=== PATIENT | female | born 1970 | race Caucasian/White ===

== ENCOUNTER → 2016-11-14 | Outpatient (CLI) | payer OTHER ==
--- NOTE | 2016-11-15 10:05 | MM ---
Reason for exam: screening (asymptomatic). Baseline mammogram. History: Patient is postmenopausal. Physical Findings: Nurse did not find any significant physical abnormalities on exam. MG Screening Mammo w CAD Bilateral CC and MLO view(s) were taken. There are scattered fibroglandular densities. There is no discrete abnormality. ASSESSMENT: Negative, BI-RAD 1 RECOMMENDATION: Routine screening mammogram of both breasts in 1 year.
== END | disposition home or self-care (01) ==
LOC: RADMAMWWP 10:29
PROVIDERS: ATTEND Family Medicine
DX: Z12.31 Encounter for screening mammogram for malignant neoplasm of breast (principal)

== ENCOUNTER 2016-11-24 01:40 | Emergency (ER) | payer OTHER ==
[2016-11-24 01:58] VITALS: BP 122/72; PULSE 83; RESP 18; TEMP 97.9
[2016-11-24] MEDS ORDERED: CYCLOBENZAPRINE 10MG STARTER 3 TAB BTL PO STA (02:08)
[2016-11-24] MEDS ORDERED: KETOROLAC 60 MG/2 ML VIAL IM STA (02:08)
[2016-11-24] MEDS ORDERED: ACET/COD 300 MG/30 MG STARTER PACK 6 TAB BTL PO STA (02:08)
--- NOTE | 2016-11-24 02:11 | ED ---
Back Pain HPI - General Chief Complaint: Back Pain/Injury Stated Complaint: back pain Time Seen by Provider: 11/24/16 02:01 Source: patient, RN notes reviewed Mode of arrival: ambulatory Limitations: no limitations - History of Present Illness Initial Comments: 46-year-old female presents emergency Department chief complaint back pain. Patient states she's been having ongoing back pain which she seen her primary care physician for this. Patient states that she is scheduled for an MRI in approximately 2 weeks. Patient states that she's been having increased back pain or last few months. Patient denies any trauma. X-ray showed degenerative changes L4-L5 L5-S1. Patient denies any bowel, bladder and carts retention. Denies any saddle anesthesias. Denies any lower extremity paresthesias. She states that after strength Tylenol is not helping. Patient states she's tried other [id number] medications with no relief. - Related Data Previous Rx's Medication Instructions Recorded Acetaminophen-Codeine 300-30mg 1 tab PO Q4H PRN #20 tablet 11/24/16 [Tylenol #3] Cyclobenzaprine [Flexeril] 10 mg PO TID PRN #15 tab 11/24/16 Allergies Allergy/AdvReac Type Severity Reaction Status Date / Time No Known Allergies Allergy Verified 09/03/16 11:53 Review of Systems ROS Statement: Those systems with pertinent positive or pertinent negative responses have been documented in the HPI. ROS Other: All systems not noted in ROS Statement are negative. Past Medical History Past Medical History: No Reported History Additional Past Medical History / Comment(s): stomach ulcers History of Any Multi-Drug Resistant Organisms: None Reported Past Surgical History: Appendectomy, Hysterectomy, Orthopedic Surgery, Tubal Ligation Additional Past Surgical History / Comment(s): right knee, left knee, left shoulder Past Psychological History: Anxiety, Depression Smoking Status: Current every day smoker Past Alcohol Use History: Occasional Past Drug Use History: None Reported General Exam Limitations: no limitations General appearance: alert, in no apparent distress Neck exam: Present: normal inspection, full ROM. Absent: tenderness, meningismus, lymphadenopathy Respiratory exam: Present: normal lung sounds bilaterally. Absent: respiratory distress, wheezes, rales, rhonchi, stridor Cardiovascular Exam: Present: regular rate, normal rhythm, normal heart sounds. Absent: systolic murmur, diastolic murmur, rubs, gallop, clicks GI/Abdominal exam: Present: soft, normal bowel sounds. Absent: distended, tenderness, guarding, rebound, rigid Extremities exam: Present: other (Bilateral lower extremity strength equal bilateral pedal pulses 2+ equal bilaterally equal color equal warmth) Back exam: Present: full ROM, tenderness (Mild tenderness lumbar spine), paraspinal tenderness, vertebral tenderness (Lumbar), other (Normal straight leg raise) Neurological exam: Present: alert, oriented X3, CN II-XII intact, reflexes normal. Absent: motor sensory deficit Skin exam: Present: warm, dry, intact, normal color. Absent: rash Course Vital Signs 11/24/16 01:54 Temperature 97.9 F Pulse Rate 83 Respiratory 18 Rate Blood Pressure 122/72 O2 Sat by Pulse 99 Oximetry Medical Decision Making - Medical Decision Making 38-year-old female presented for back pain. Patient x-rays were reviewed. Patient has genital changes. Patient be given pain medication and discharge. Patient has no red flag symptoms. Patient has scheduled MRI and appointment with pain clinic. Disposition Clinical Impression: Lumbar back pain Disposition: HOME SELF-CARE Condition: Stable Instructions: Acute Low Back Pain (ED) Additional Instructions: Please return to the Emergency Department if symptoms worsen or any other concerns. Prescriptions: Acetaminophen-Codeine 300-30mg [Tylenol #3] 1 tab PO Q4H PRN #20 tablet PRN Reason: pain Cyclobenzaprine [Flexeril] 10 mg PO TID PRN #15 tab PRN Reason: Muscle Spasm Time of Disposition: 02:11
== END 2016-11-24 02:26 | disposition home or self-care (01) ==
LOC: EC 01:40
DX: M54.5 Low back pain (principal); F41.9 Anxiety disorder, unspecified; F32.9 Major depressive disorder, single episode, unspecified; F17.200 Nicotine dependence, unspecified, uncomplicated; Z79.899 Other long term (current) drug therapy; Z79.1 Long term (current) use of non-steroidal anti-inflammatories (NSAID)
CPT/HCPCS: 99282 ×2; 96372 ×2; J1885

== ENCOUNTER 2016-12-03 19:26 | Emergency (ER) | payer OTHER ==
[2016-12-03 20:09] VITALS: RESP 18
[2016-12-03] MEDS ORDERED: IBUPROFEN 400 MG TAB PO STA (21:42)
[2016-12-03] MEDS ORDERED: SODIUM CHLORIDE 0.9% 1,000 ML IV STA (21:42)
--- NOTE | 2016-12-03 22:01 | XR ---
EXAMINATION TYPE: XR chest 2V DATE OF EXAM: 12/03/2016 9:56 PM COMPARISON: NONE HISTORY: Headache TECHNIQUE: Frontal and lateral views of the chest are obtained. FINDINGS: Heart and mediastinum are normal. Lungs are clear. Diaphragm is normal. Bony thorax is int act. IMPRESSION: Normal chest. No change.
--- NOTE | 2016-12-03 22:06 | ED ---
General Adult HPI - General Chief complaint: Headache Stated complaint: Headache Time Seen by Provider: 12/03/16 21:21 Source: patient, RN notes reviewed Mode of arrival: ambulatory Limitations: no limitations - History of Present Illness Initial comments: 46-year-old female presents emergency Department with a chief complaint of just feeling drinking. Patient states today she just felt very drained. Patient states she hasn't had any fever or chills but she does take Tylenol for pain. Patient states that she just has to motivate herself to move. Patient states that she just feels achy as well. Patient states she has lost headache and back pain and arm pain and leg pain. Patient states he does have chronic back pain but did have an MRI today. Patient states that she just does not know what he thought that she should be evaluated. Patient states that she is not currently having any other symptoms at this time. Patient denies any recent fever, chills, shortness of breath, chest pain, back pain, abdominal pain, nausea vomiting, numbness or tingling, dysuria or hematuria, constipation or diarrhea, visual changes, or any other current symptoms. - Related Data Home Medications Medication Instructions Recorded Confirmed Acetaminophen Tab [Tylenol Tab] 1,000 mg PO Q6HR 12/03/16 12/03/16 Previous Rx's Medication Instructions Recorded Ciprofloxacin HCl [Cipro] 500 mg PO Q12HR #14 tablet 12/03/16 Allergies Allergy/AdvReac Type Severity Reaction Status Date / Time No Known Allergies Allergy Verified 12/03/16 20:54 Review of Systems ROS Statement: Those systems with pertinent positive or pertinent negative responses have been documented in the HPI. ROS Other: All systems not noted in ROS Statement are negative. Past Medical History Past Medical History: No Reported History Additional Past Medical History / Comment(s): stomach ulcers History of Any Multi-Drug Resistant Organisms: None Reported Past Surgical History: Appendectomy, Hysterectomy, Orthopedic Surgery, Tubal Ligation Additional Past Surgical History / Comment(s): right knee, left knee, left shoulder Past Psychological History: Anxiety, Depression Smoking Status: Current every day smoker Past Alcohol Use History: Occasional Past Drug Use History: None Reported General Exam - General Exam Comments Initial Comments: General: The patient is awake and alert, in no distress, and does not appear acutely ill. Eye: Pupils are equal, round and reactive to light, extra-ocular movements are intact; there is normal conjunctiva bilaterally. No signs of icterus. Ears, nose, mouth and throat: There are moist mucous membranes and no oral lesions. Neck: The neck is supple, there is no tenderness. Cardiovascular: There is a regular rate and rhythm. No murmur, rub or gallop is appreciated. Respiratory: Lungs are clear to auscultation, respirations are non-labored, breath sounds are equal. No wheezes, stridor, rales, or rhonchi. Gastrointestinal: Soft, non-distended, non-tender abdomen without masses or organomegaly noted. There is no rebound or guarding present. No CVA tenderness. Bowel sounds are unremarkable. Back: There is no tenderness to palpation in the midline. There is no obvious deformity. No rashes noted. Musculoskeletal: Normal ROM, no tenderness, There is no pedal edema. There is no calf tenderness or swelling. Sensation intact. Pulses equal bilaterally 2+. Neurological: CN II-XII intact, There are no obvious motor or sensory deficits. Coordination appears grossly intact. Speech is normal. Skin: Skin is warm and dry and no rashes or lesions are noted. Psychiatric: Cooperative, appropriate mood & affect, normal judgment. Limitations: no limitations Course Vital Signs 12/03/16 20:06 Temperature 98.2 F Pulse Rate 89 Respiratory 18 Rate Blood Pressure 139/84 O2 Sat by Pulse 98 Oximetry Medical Decision Making - Medical Decision Making 46-year-old female presents to the emergency department with a chief complaint of fatigue. This and the patient's laboratories reviewed the discharge that she has UTI and is negative for blood. We discussed this could be why she is feeling so fatigued. We will start her on antibiotics. We discussed return parameters and follow-up. We discussed outcome. Patient stated that she understood all her questions have been answered. She will be discharged. - Lab Data Result diagrams: 12/03/16 22:15 12/03/16 22:15 Lab Results 12/03/16 12/03/16 12/03/16 Range/Units 22:15 22:15 22:15 WBC 10.3 (3.8-10.6) k/uL RBC 4.60 (3.80-5.40) m/uL Hgb 14.0 (11.4-16.0) gm/dL Hct 42.2 (34.0-46.0) % MCV 91.9 (80.0-100.0) fL MCH 30.4 (25.0-35.0) pg MCHC 33.1 (31.0-37.0) g/dL RDW 12.1 (11.5-15.5) % Plt Count 462 H (150-450) k/uL Neutrophils % 50 % Lymphocytes % 39 % Monocytes % 5 % Eosinophils % 3 % Basophils % 2 % Neutrophils # 5.2 (1.3-7.7) k/uL Lymphocytes # 4.0 (1.0-4.8) k/uL Monocytes # 0.5 (0-1.0) k/uL Eosinophils # 0.3 (0-0.7) k/uL Basophils # 0.2 (0-0.2) k/uL Sodium 142 (137-145) mmol/L Potassium 4.3 (3.5-5.1) mmol/L Chloride 100 (98-107) mmol/L Carbon Dioxide 31 H (22-30) mmol/L Anion Gap 11 mmol/L BUN 11 (7-17) mg/dL Creatinine 0.67 (0.52-1.04) mg/dL Est GFR (MDRD) Af Amer >60 (>60 ml/min/1.73 sqM) Est GFR (MDRD) Non-Af >60 (>60 ml/min/1.73 sqM) Glucose 87 (74-99) mg/dL Calcium 9.9 (8.4-10.2) mg/dL Total Bilirubin 0.5 (0.2-1.3) mg/dL AST 25 (14-36) U/L ALT 44 (9-52) U/L Alkaline Phosphatase 79 (38-126) U/L Total Protein 7.7 (6.3-8.2) g/dL Albumin 4.5 (3.5-5.0) g/dL Urine Color Urine Appearance (Clear) Urine pH (5.0-8.0) Ur Specific [place] (1.001-1.035) Urine Protein (Negative) Urine Glucose (UA) (Negative) Urine Ketones (Negative) Urine Blood (Negative) Urine Nitrate (Negative) Urine Bilirubin (Negative) Urine Urobilinogen (<2.0) mg/dL Ur Leukocyte Esterase (Negative) Urine RBC (0-5) /hpf Urine WBC (0-5) /hpf Ur Squamous Epith Cells (0-4) /hpf Urine Mucus (None) /hpf Influenza Type A RNA Not Detected (Not Detectd) Influenza Type B (PCR) Not Detected (Not Detectd) 12/03/16 Range/Units 22:15 WBC (3.8-10.6) k/uL RBC (3.80-5.40) m/uL Hgb (11.4-16.0) gm/dL Hct (34.0-46.0) % MCV (80.0-100.0) fL MCH (25.0-35.0) pg MCHC (31.0-37.0) g/dL RDW (11.5-15.5) % Plt Count (150-450) k/uL Neutrophils % % Lymphocytes % % Monocytes % % Eosinophils % % Basophils % % Neutrophils # (1.3-7.7) k/uL Lymphocytes # (1.0-4.8) k/uL Monocytes # (0-1.0) k/uL Eosinophils # (0-0.7) k/uL Basophils # (0-0.2) k/uL Sodium (137-145) mmol/L Potassium (3.5-5.1) mmol/L Chloride (98-107) mmol/L Carbon Dioxide (22-30) mmol/L Anion Gap mmol/L BUN (7-17) mg/dL Creatinine (0.52-1.04) mg/dL Est GFR (MDRD) Af Amer (>60 ml/min/1.73 sqM) Est GFR (MDRD) Non-Af (>60 ml/min/1.73 sqM) Glucose (74-99) mg/dL Calcium (8.4-10.2) mg/dL Total Bilirubin (0.2-1.3) mg/dL AST (14-36) U/L ALT (9-52) U/L Alkaline Phosphatase (38-126) U/L Total Protein (6.3-8.2) g/dL Albumin (3.5-5.0) g/dL Urine Color Yellow Urine Appearance Clear (Clear) Urine pH 6.0 (5.0-8.0) Ur Specific [place] 1.026 (1.001-1.035) Urine Protein Trace H (Negative) Urine Glucose (UA) Negative (Negative) Urine Ketones Negative (Negative) Urine Blood Trace H (Negative) Urine Nitrate Negative (Negative) Urine Bilirubin Negative (Negative) Urine Urobilinogen <2.0 (<2.0) mg/dL Ur Leukocyte Esterase Moderate H (Negative) Urine RBC 8 H (0-5) /hpf Urine WBC 6 H (0-5) /hpf Ur Squamous Epith Cells 4 (0-4) /hpf Urine Mucus Rare H (None) /hpf Influenza Type A RNA (Not Detectd) Influenza Type B (PCR) (Not Detectd) - Radiology Data Radiology results: report reviewed, image reviewed Disposition Clinical Impression: Fatigue, UTI (urinary tract infection) Disposition: HOME SELF-CARE Condition: Stable Instructions: Urinary Tract Infection in Women (ED) Additional Instructions: Please use medication as discussed. Please follow up with family doctor if symptoms have not improved over the next two days. Please return to the emergency room if your symptoms increase or worsen or for any other concerns. Prescriptions: Ciprofloxacin HCl [Cipro] 500 mg PO Q12HR #14 tablet Referrals: Chalo Ayala MD [Primary Care Provider] - 1-2 days Time of Disposition: 23:38
[2016-12-03 22:29] LABS: Basophils # (A) 0.2 k/uL (0-0.2); Basophils % (A) 2 %; CH 31.5; CHCM 34.4; Eosinophils # (A) 0.3 k/uL (0-0.7); Eosinophils % (A) 3 %; HCT 42.2 % (34.0-46.0); HDW 2.48; Luc # (Auto) 0.12; Luc % (Auto) 1; Lymphocytes % (A) 39 %; MCH 30.4 pg (25.0-35.0); MCHC 33.1 g/dL (31.0-37.0); MCV 91.9 fL (80.0-100.0); Mean Platelet Volume 6.8; Monocytes # (A) 0.5 k/uL (0-1.0); Monocytes % (A) 5 %; Neutrophils # (A) 5.2 k/uL (1.3-7.7); Neutrophils % (A) 50 %; RDW 12.1 % (11.5-15.5); WBC 10.3 k/uL (3.8-10.6); WBC (Perox) 10.25
[2016-12-03 22:34] LABS: Appearance,Urine Clear (Clear); Bilirubin,Urine Negative (Negative); Glucose,Urine (UA) Negative (Negative); Ketones,Urine Negative (Negative); Leukocyte Esterase,Urine Moderate (Negative); Mucus,Urine Rare /hpf; Nitrite,Urine Negative (Negative); Particle Count 3231; Protein,Urine Trace (Negative); RBC,Urine 8 /hpf (0-5); Specific Gravity,Urine 1.026 (1.001-1.035); Squamous Epithelial Cell,Urine 4 /hpf (0-4); UA Billing (MACRO vs. MICRO) MICRO; Urobilinogen,Urine <2.0 mg/dL (<2.0); WBC,Urine 6 /hpf (0-5)
[2016-12-03 22:46] LABS: ALT 44 U/L (9-52); AST 25 U/L (14-36); Alkaline Phosphatase 79 U/L (38-126); Anion Gap 11 mmol/L; Blood Urea Nitrogen 11 mg/dL (7-17); Calcium 9.9 mg/dL (8.4-10.2); Carbon Dioxide 31 mmol/L (22-30); Chloride 100 mmol/L (98-107); Glucose 87 mg/dL (74-99); Non-African American GFR(MDRD) >60 (>60 ml/min/1.73 sqM); Potassium 4.3 mmol/L (3.5-5.1); Sodium 142 mmol/L (137-145); Total Bilirubin 0.5 mg/dL (0.2-1.3); Total Protein 7.7 g/dL (6.3-8.2)
[2016-12-03] MEDS ORDERED: ACETAMINOPHEN TAB 500 MG TAB PO STA (22:47)
[2016-12-03] MEDS ORDERED: KETOROLAC 30 MG/ML 1 ML VIAL IVP STA (23:39)
[2016-12-03 23:57] VITALS: BP 117/66; PULSE 77; TEMP 97.6
== END 2016-12-03 23:57 | disposition home or self-care (01) ==
LOC: EC 19:26
DX: R53.83 Other fatigue (principal); N39.0 Urinary tract infection, site not specified; Z79.899 Other long term (current) drug therapy; F17.200 Nicotine dependence, unspecified, uncomplicated
CPT/HCPCS: 36415; 80053; 85025; 81001; 87040; 87086; 87502; 71020; 99283; 96374; 96361; J1885; 72148

== ENCOUNTER → 2016-12-03 | Outpatient (CLI) | payer OTHER ==
--- NOTE | 2016-12-03 13:06 | MR ---
EXAMINATION TYPE: MR lumbar spine wo con DATE OF EXAM: 12/03/2016 12:57 PM COMPARISON: NONE HISTORY: Low back pain CONTRAST: 0 mL intravenous . TECHNIQUE: Multiplanar, multisequence images of the lumbar spine were acquired. FINDINGS: L5-S1: No significant disc bulge or disc herniation. No spinal canal stenosis. No foraminal stenosi s. Facet hypertrophy is present.. L4-L5: No significant disc bulge or disc herniation. No spinal canal stenosis. No foraminal stenosi s. Disc desiccation is present. Some subtle increased signal centrally within the disc space can be an annular tear. There is mild flattening the anterior thecal sac.. L3-L4: No significant disc bulge or disc herniation. No spinal canal stenosis. No foraminal stenosi s. . L2-L3: No significant disc bulge or disc herniation. No spinal canal stenosis. No foraminal stenosi s. . L1-L2: No significant disc bulge or disc herniation. No spinal canal stenosis. No foraminal stenosi s. . T12-L1: No significant disc bulge or disc herniation. No spinal canal stenosis. No foraminal stenos is. . Cord terminates at the T12-L1 level. IMPRESSION: 1. L4-5 with possible annular tear.
== END | disposition home or self-care (01) ==
LOC: RADMRIMAIN 12:21
PROVIDERS: ATTEND Nurse Practitioner Family
DX: M54.5 Low back pain (principal)
CPT/HCPCS: 72148

== ENCOUNTER 2016-12-17 10:09 | Emergency (ER) | payer OTHER ==
[2016-12-17] MEDS ORDERED: DIAZEPAM 5 MG TAB PO STA (10:36)
[2016-12-17] MEDS ORDERED: KETOROLAC 60 MG/2 ML VIAL IM STA (10:36)
[2016-12-17] MEDS ORDERED: HYDROcodone/APAP 5-325MG 1 EACH TAB PO STA (10:36)
--- NOTE | 2016-12-17 11:05 | ED ---
General Adult HPI - General Chief complaint: Back Pain/Injury Stated complaint: back pain Time Seen by Provider: 12/17/16 10:25 Source: patient, RN notes reviewed, old records reviewed Mode of arrival: wheelchair Limitations: no limitations - History of Present Illness Initial comments: This is a 38-year-old female here for evaluation of acute on chronic back pain. Patient has history of back pain and discomfort. Patient has had prior evaluation with MRI, patient does have an appointment with an for pain management starting tomorrow. Patient has no neurological complaints. This feels a severe back pain that is radiating across her entire back. No loss of bowel or bladder, no new injury or trauma, no fever. - Related Data Home Medications Medication Instructions Recorded Confirmed traMADol HCL [Ultram] 50 mg PO Q6HR PRN 12/17/16 12/17/16 Allergies Allergy/AdvReac Type Severity Reaction Status Date / Time No Known Allergies Allergy Verified 12/17/16 10:32 Review of Systems ROS Statement: Those systems with pertinent positive or pertinent negative responses have been documented in the HPI. ROS Other: All systems not noted in ROS Statement are negative. Past Medical History Past Medical History: No Reported History Additional Past Medical History / Comment(s): stomach ulcers, back pain History of Any Multi-Drug Resistant Organisms: None Reported Past Surgical History: Appendectomy, Hysterectomy, Orthopedic Surgery, Tubal Ligation Additional Past Surgical History / Comment(s): right knee, left knee, left shoulder Past Psychological History: Anxiety, Depression Smoking Status: Current every day smoker Past Alcohol Use History: Occasional Past Drug Use History: None Reported General Exam Limitations: no limitations General appearance: alert, in no apparent distress Head exam: Present: atraumatic, normocephalic, normal inspection Eye exam: Present: normal appearance, PERRL, EOMI. Absent: scleral icterus, conjunctival injection, periorbital swelling ENT exam: Present: normal exam, mucous membranes moist Neck exam: Present: normal inspection. Absent: tenderness, meningismus, lymphadenopathy Respiratory exam: Present: normal lung sounds bilaterally. Absent: respiratory distress, wheezes, rales, rhonchi, stridor Cardiovascular Exam: Present: regular rate, normal rhythm, normal heart sounds. Absent: systolic murmur, diastolic murmur, rubs, gallop, clicks GI/Abdominal exam: Present: soft, normal bowel sounds. Absent: distended, tenderness, guarding, rebound, rigid Rectal exam: Present: deferred Extremities exam: Present: normal inspection, full ROM, normal capillary refill. Absent: tenderness, pedal edema, joint swelling, calf tenderness Back exam: Present: normal inspection, full ROM, muscle spasm, paraspinal tenderness Neurological exam: Present: alert, oriented X3, CN II-XII intact Psychiatric exam: Present: normal affect, normal mood Skin exam: Present: warm, dry, intact, normal color. Absent: rash Course Vital Signs 12/17/16 10:18 Temperature 98.0 F Pulse Rate 110 H Respiratory 20 Rate Blood Pressure 110/67 O2 Sat by Pulse 99 Oximetry - Reevaluation(s) Reevaluation #1: 12/17/16 11:04 At this time patient's pain is controlled Medical Decision Making - Medical Decision Making 38 female here with acute on chronic back pain. Pain currently control, we will keep pain appointments tomorrow, patient can be discharged home, able to ambulate without difficulty at this time. Disposition Clinical Impression: Mechanical back pain, Lumbar back pain Disposition: HOME SELF-CARE Condition: Good Instructions: Chronic Back Pain (ED), Acute Low Back Pain (ED) Referrals: Chalo Ayala MD [Primary Care Provider] - 1-2 days
[2016-12-17 11:56] VITALS: BP 104/61; PULSE 95; RESP 16; TEMP 98.3
== END 2016-12-17 11:56 | disposition home or self-care (01) ==
LOC: EC 10:09
DX: M54.5 Low back pain (principal); F17.200 Nicotine dependence, unspecified, uncomplicated
CPT/HCPCS: 99283; 96372; J1885

== ENCOUNTER → 2016-12-18 | Outpatient (CLI) | payer OTHER ==
[2016-12-18 13:26] VITALS: BP 109/80; PULSE 102; RESP 16; TEMP 97.7
--- NOTE | 2016-12-19 08:50 | P.CONS ---
History of Present Illness - Reason for Consult Consult date: 12/18/16 - History of Present Illness This is the initial consultation visit for this 46 years old female with a chronic history of severe low back pain, radiation to the posterior aspect of her lower extremity, the pain started more than 4 months ago, and she denies any initiating event she had no history of trauma or accident or heavy lifting, intensity of the pain increased significantly over the last few weeks, pain intensity 9/10, most of the time and she feels she has normal motor strength in her lower extremity, but she is able to walk and do activities of daily livings , she had no change in the bowel movement or urination, no fever or night sweats , and she reported that the pain increases with any change in the position and any movement she is currently on Ultram 50 mg every 6 hours when necessary but this is not helping to improve her pain Past Medical History Past Medical History: No Reported History Additional Past Medical History / Comment(s): stomach ulcers, back pain History of Any Multi-Drug Resistant Organisms: None Reported Past Surgical History: Appendectomy, Hysterectomy, Orthopedic Surgery, Tubal Ligation Additional Past Surgical History / Comment(s): right knee, left knee, left shoulder Past Anesthesia/Blood Transfusion Reactions: No Reported Reaction Past Psychological History: Anxiety, Depression Smoking Status: Current every day smoker Past Alcohol Use History: Occasional Past Drug Use History: None Reported Medications and Allergies Home Medications Medication Instructions Recorded Confirmed Type traMADol HCL [Ultram] 50 mg PO Q6HR PRN 12/17/16 12/18/16 History Celecoxib [CeleBREX] 200 mg PO DAILY 12/18/16 12/18/16 History Allergies Allergy/AdvReac Type Severity Reaction Status Date / Time No Known Allergies Allergy Verified 12/18/16 13:04 Physical Exam Vitals: Vital Signs Temp Pulse Resp BP Pulse Ox 12/18/16 13:07 97.7 F 102 H 16 109/80 97 Social history : smoker , NO ETOH , NO Illegal drugs use Review of Systems : 1- Constitutional : no chills , no fever , no night sweats , 2- Ears : no ear discharge , no change in hearing 3-Nose, Mouth ,Throat ; no bleeding gums, no sore throat , no epistaxis , 4-Cardiovascular : Denies chest pain, , no orthopnea , no palpitation 5-Respiratory : Denies cough , no dyspnea , no hemoptysis 6-Gastrointestinal :, no change in bowel habits , no coffee- ground emesis . 7-Genitourinary : No hematuria , no discharge , no incontinence, 8-Musculoskeletal : No gait dysfunction , report low back pain , and lower extremity pain , 9- Neurological : no ataxia , no tremor , no sezure , 10-Psychatric , no suicidal ideation no hallucination 11- Endocrine : no cold intolerence , no polyuria , no polydypsia , 12-Hematologic : no easy bleeding , no easy brusing , 13-Allergic / immunology : no angioedema , no wheezing ,no allergic rhinitis 14-Integumentary : no brttle nails , no change hair / nails , no foot/leg ulcers . Physical Examinations : 1-Constitutional : Cooperative , not in acute distress . 2-HEENT : nech ; supple , no Lymphadenopathy , no Thyromegaly , eyes , no icterus, no photophobia . ENT : , normal oropharynx , no Thrush 3- Respiratory : Chest clear to auscultations Bilaterally , no wheezing . 4- Cardiovascular : regular rate and rhythem , S1 , S2 , no S3 , no S4. 5- Gastrointestinal: abdomen soft no tenderness , no organomegally . 6- Genitourinary : Defferred . 7-Integumentary : No cellulitis , no ulcers , normal skin turgor , no cyanotic . 8- neurologic : Cranial nerve II to XII intact , no focal neurological deffecit 9-psychatric : alert , oriented X 3 , appropriate affect , intact judgment and insight . 10-Lymphatic : no Lymphadenopathy. 11- musculoskeltal: normal gait , exams of the cervical spine = motor stregnth in the deltoid and biceps, normal right side , normal Left side motor stregnth biceps and the wrist extensors normal right side ,normal left side . motor stregnth in the triceps muscle . normal Right side , normal Left side exams of the Lumber spine = moter stegnth lower extremities , thigh and legs 5/5 Right side , 5/5 Left side deep tendon reflexes : normal Knee Jerk , normal ankle Jerk positive lumber facet Loading Test Range of motion of the lumbar spine Flexion 60 degrees, extension 10 degrees strait leg raising test , positive at 45 degree Fabere test negative bilaterally Results Comments: MRI of the lumbar spine done 12/03/2016= L5-S1 lumbar facet arthropathy, and L4 5 disc desiccation Assessment and Plan Plan: Assessment and plan = - Chronic low back pain secondary to lumbar degenerative disc disease , lumbar spondylosis with facet arthropathy without myelopathy , -Patient denies any side effect of the medication, and the current medication helped the patient to control the pain and improve activity of daily living, the visual The patient was counseled about risk of opioid use, psychological risk associated with opioids discussed with the patient, body mass index and exercise. Patient signed the narcotic agreement , and was orally counseled not to overuse , abuse , divert, or sell medications ,and take them as prescribed only , and the patient was counseled against driving and while you are using the narcotic medication also not to use alcohol or any illicit drugs and the patient verbalized understanding that lack of compliance and could result in failure to renew narcotics prescriptions and possible discharge from the clinic - diagnoses, prognosis, and treatment options including but not limited to physical therapy, surgical interventions, interventional therapies and medication management including narcotics and adjuvant medication were discussed with the patient and all questions answered to the patient's satisfaction. -medication refile = patient given a prescription for Ultram 50 mg every 6 hours when necessary for pain dispense 60 with 1 refill And patient could benefit from Celebrex 200 mg every morning (patient cannot take any NSAIDs because she had a history of stomach ulcer) -procedure= patient will be scheduled to have diagnostic medial branch block lumbar area Bilateral L3-4/ L4-5/ L5-S1 one of the diagnostic block twice and if she had more than 50% improvement of her low back pain and then we will proceed with the radiofrequency ablation of the medial branch lumbar area, procedure risks and benefits and alternatives discussed with the patient and she agreed with the preceding Time with Patient: Greater than 30
== END | disposition home or self-care (01) ==
LOC: PNWHC3 13:01
PROVIDERS: ATTEND Specialist
DX: G89.29 Other chronic pain (principal); M51.36 Other intervertebral disc degeneration, lumbar region; M47.816 Spondylosis without myelopathy or radiculopathy, lumbar region; F17.200 Nicotine dependence, unspecified, uncomplicated; Z79.1 Long term (current) use of non-steroidal anti-inflammatories (NSAID); Z79.891 Long term (current) use of opiate analgesic
CPT/HCPCS: 99211

== ENCOUNTER 2016-12-31 18:09 | Emergency (ER) | payer OTHER ==
[2016-12-31 18:14] VITALS: RESP 18
--- NOTE | 2016-12-31 19:47 | ED ---
General Adult HPI - General Chief complaint: Recheck/Abnormal Lab/Rx Stated complaint: fatigue Time Seen by Provider: 12/31/16 19:26 Source: patient, RN notes reviewed, old records reviewed Mode of arrival: wheelchair Limitations: no limitations - History of Present Illness Initial comments: Chief complaint history of present illness a 46-year-old female here with complaint of feeling exhaustedtired. Sent home from work because the way she felt. 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 Otherwise no heavy lifting or straining. - Related Data Home Medications Medication Instructions Recorded Confirmed No Known Home Medications [No 12/31/16 12/31/16 Known Home Medications] Allergies Allergy/AdvReac Type Severity Reaction Status Date / Time No Known Allergies Allergy Verified 12/31/16 19:49 Review of Systems ROS Statement: Those systems with pertinent positive or pertinent negative responses have been documented in the HPI. Review of systems. Patient's denying headache no visual acuity changes no chest pain shortness breath GI/ problems. General complaint of feeling fatigued. The patient recently had labs done by genetic counselor none of which are available this time. She reports that she was referred to the genetic counselor because of persistently elevated white count of approximately 13.5 and elevated platelets of 475. She states she been worked up by her family physician for fatigue including thyroid etc. Recently in emergency room and diagnosed with a urinary tract infection even though she was asymptomatic. Patient is not complaining of any headache no nausea no vomiting. Appetite is good. All systems reviewed. Past medical problems stomach ulcers. Depression associated with the breakup of 30 years which she reports is old at this time. Surgeries appendectomy, hysterectomy, arthroscopic surgeries shoulders knees. Family history no cancers. Patient is a smoker. Her to stop ROS Other: All systems not noted in ROS Statement are negative. Past Medical History Past Medical History: No Reported History Additional Past Medical History / Comment(s): stomach ulcers, back pain History of Any Multi-Drug Resistant Organisms: None Reported Past Surgical History: Appendectomy, Hysterectomy, Orthopedic Surgery, Tubal Ligation Additional Past Surgical History / Comment(s): right knee, left knee, left shoulder Past Anesthesia/Blood Transfusion Reactions: No Reported Reaction Past Psychological History: Anxiety, Depression Smoking Status: Current every day smoker Past Alcohol Use History: Occasional Past Drug Use History: None Reported General Exam - General Exam Comments Initial Comments: General: The patient is awake and alert, in no distress, and does not appear acutely ill. Complains of just generalized fatigue. No complaints of pain. Vital signs show temperature 90.5 pulse 104 respiratory rate 18 pulse ox on percent room air blood pressure 123/75 Eye: Pupils are equal, round and reactive to light, extra-ocular movements are intact ; there is normal conjunctiva bilaterally. No signs of icterus. Ears, nose, mouth and throat: There are moist mucous membranes and no oral lesions. Neck: The neck is supple, there is no tenderness , no anterior cervical lymphadenopathy, thyroid not enlarged. Cardiovascular: There is a regular rate and rhythm. No murmur, rub or gallop is appreciated. Respiratory: Lungs are clear to auscultation, respirations are non-labored, breath sounds are equal. No wheezes, stridor, rales, or rhonchi. Gastrointestinal: Soft, non-distended, non-tender abdomen without masses or organomegaly noted. There is no rebound or guarding present. No CVA tenderness. Bowel sounds are unremarkable. Back: There is no tenderness to palpation in the midline. There is no obvious deformity. No rashes noted. Musculoskeletal: Normal ROM, no tenderness, There is no pedal edema. There is no calf tenderness or swelling. Sensation intact. Pulses equal bilaterally 2+. Neurological: CN II-XII intact, There are no obvious motor or sensory deficits. Coordination appears grossly intact. Speech is normal. No evidence of any neuro deficits and none complained of. No dizziness or difficulty walking no balance problems. Skin: Skin is warm and dry and no rashes or lesions are noted. Psychiatric: Past history of depression associated with the breakup of long-standing. Otherwise she reports she is long past that does not take medications for it. Denies depression. Limitations: no limitations Course Vital Signs 12/31/16 18:11 Temperature 98.5 F Pulse Rate 104 H Respiratory 18 Rate Blood Pressure 123/75 O2 Sat by Pulse 100 Oximetry Medical Decision Making - Medical Decision Making Medical decision making patient's white count 11 hemoglobin 14 hematocrit 42 urine clean no signs of infection. Potassium 4.4 with a BUN 13 creatinine 0.71 GFR greater than 60. Glucose 91. Patient will be referred onto her family physician for general workup for fatigue. She is already seeing a genetic counselor. - Lab Data Result diagrams: 12/31/16 20:08 12/31/16 20:08 Lab Results 12/31/16 12/31/16 12/31/16 Range/Units 20:08 20:08 20:08 WBC 11.0 H (3.8-10.6) k/uL RBC 4.52 (3.80-5.40) m/uL Hgb 14.4 (11.4-16.0) gm/dL Hct 42.7 (34.0-46.0) % MCV 94.4 (80.0-100.0) fL MCH 31.8 (25.0-35.0) pg MCHC 33.7 (31.0-37.0) g/dL RDW 12.7 (11.5-15.5) % Plt Count 563 H (150-450) k/uL Neutrophils % 55 % Lymphocytes % 36 % Monocytes % 4 % Eosinophils % 2 % Basophils % 1 % Neutrophils # 6.0 (1.3-7.7) k/uL Lymphocytes # 4.0 (1.0-4.8) k/uL Monocytes # 0.5 (0-1.0) k/uL Eosinophils # 0.3 (0-0.7) k/uL Basophils # 0.1 (0-0.2) k/uL Sodium 140 (137-145) mmol/L Potassium 4.4 (3.5-5.1) mmol/L Chloride 103 (98-107) mmol/L Carbon Dioxide 28 (22-30) mmol/L Anion Gap 9 mmol/L BUN 13 (7-17) mg/dL Creatinine 0.71 (0.52-1.04) mg/dL Est GFR (MDRD) Af Amer >60 (>60 ml/min/1.73 sqM) Est GFR (MDRD) Non-Af >60 (>60 ml/min/1.73 sqM) Glucose 91 (74-99) mg/dL Calcium 9.7 (8.4-10.2) mg/dL Total Bilirubin 0.4 (0.2-1.3) mg/dL AST 24 (14-36) U/L ALT 36 (9-52) U/L Alkaline Phosphatase 89 (38-126) U/L Total Protein 7.6 (6.3-8.2) g/dL Albumin 4.4 (3.5-5.0) g/dL Urine Color Yellow Urine Appearance Clear (Clear) Urine pH 6.5 (5.0-8.0) Ur Specific [place] 1.022 (1.001-1.035) Urine Protein Negative (Negative) Urine Glucose (UA) Negative (Negative) Urine Ketones Negative (Negative) Urine Blood Negative (Negative) Urine Nitrate Negative (Negative) Urine Bilirubin Negative (Negative) Urine Urobilinogen <2.0 (<2.0) mg/dL Ur Leukocyte Esterase Negative (Negative) Disposition Clinical Impression: Fatigue Disposition: HOME SELF-CARE Condition: Fair Instructions: Fatigue (ED) Additional Instructions: Increase fluids rest relax take medications prescribed by her family physician follow-up with your genetic counselor and your family doctor Time of Disposition: 22:30
[2016-12-31 20:19] LABS: Basophils # (A) 0.1 k/uL (0-0.2); Basophils % (A) 1 %; CH 31.7; CHCM 33.8; Eosinophils # (A) 0.3 k/uL (0-0.7); Eosinophils % (A) 2 %; HCT 42.7 % (34.0-46.0); HDW 2.67; HGB 14.4 gm/dL (11.4-16.0); Luc # (Auto) 0.23; Luc % (Auto) 2; Lymphocytes % (A) 36 %; MCH 31.8 pg (25.0-35.0); MCHC 33.7 g/dL (31.0-37.0); MCV 94.4 fL (80.0-100.0); Mean Platelet Volume 6.9; Monocytes # (A) 0.5 k/uL (0-1.0); Monocytes % (A) 4 %; Neutrophils % (A) 55 %; RBC 4.52 m/uL (3.80-5.40); RDW 12.7 % (11.5-15.5); WBC (Perox) 11.23
[2016-12-31 20:22] LABS: Appearance,Urine Clear (Clear); Bilirubin,Urine Negative (Negative); Glucose,Urine (UA) Negative (Negative); Ketones,Urine Negative (Negative); Leukocyte Esterase,Urine Negative (Negative); Nitrite,Urine Negative (Negative); PH, Urine 6.5 (5.0-8.0); Protein,Urine Negative (Negative); Specific Gravity,Urine 1.022 (1.001-1.035); UA Billing (MACRO vs. MICRO) CHEM; Urobilinogen,Urine <2.0 mg/dL (<2.0)
[2016-12-31 20:30] LABS: ALT 36 U/L (9-52); AST 24 U/L (14-36); Alkaline Phosphatase 89 U/L (38-126); Anion Gap 9 mmol/L; Blood Urea Nitrogen 13 mg/dL (7-17); Calcium 9.7 mg/dL (8.4-10.2); Carbon Dioxide 28 mmol/L (22-30); Chloride 103 mmol/L (98-107); Glucose 91 mg/dL (74-99); Non-African American GFR(MDRD) >60 (>60 ml/min/1.73 sqM); Potassium 4.4 mmol/L (3.5-5.1); Sodium 140 mmol/L (137-145); Total Bilirubin 0.4 mg/dL (0.2-1.3); Total Protein 7.6 g/dL (6.3-8.2)
[2016-12-31 22:49] VITALS: BP 126/78; PULSE 73; TEMP 97.8
== END 2016-12-31 22:48 | disposition home or self-care (01) ==
LOC: EC 18:09
DX: R53.83 Other fatigue (principal); F17.200 Nicotine dependence, unspecified, uncomplicated
CPT/HCPCS: 36415; 80053; 81003; 85025; 87086; 99284

== ENCOUNTER 2017-05-01 18:38 | Observation (INO) | payer OTHER ==
[2017-05-01 19:33] LABS: Basophils # (A) 0.1 k/uL (0-0.2); Basophils % (A) 1 %; CH 31.5; CHCM 34.6; Eosinophils # (A) 0.2 k/uL (0-0.7); Eosinophils % (A) 2 %; HCT 39.5 % (34.0-46.0); HDW 2.46; HGB 14.1 gm/dL (11.4-16.0); Luc # (Auto) 0.22; Luc % (Auto) 2; Lymphocytes # (A) 3.4 k/uL (1.0-4.8); Lymphocytes % (A) 34 %; MCH 32.5 pg (25.0-35.0); MCHC 35.6 g/dL (31.0-37.0); MCV 91.3 fL (80.0-100.0); Mean Platelet Volume 6.3; Monocytes # (A) 0.4 k/uL (0-1.0); Monocytes % (A) 4 %; Neutrophils # (A) 5.6 k/uL (1.3-7.7); Neutrophils % (A) 57 %; RBC 4.32 m/uL (3.80-5.40); RDW 12.2 % (11.5-15.5); WBC 9.9 k/uL (3.8-10.6); WBC (Perox) 10.37
--- NOTE | 2017-05-01 19:39 | XR ---
EXAMINATION TYPE: XR chest 2V DATE OF EXAM: 05/01/2017 COMPARISON: 12/03/2016 HISTORY: Left-sided chest pain TECHNIQUE: Frontal and lateral views of the chest are obtained. FINDINGS: Heart and mediastinum are normal. Lungs are clear. There is no pleural effusion. There are chest leads. Bony thorax is intact. IMPRESSION: No active cardiopulmonary disease. Normal heart. No change.
[2017-05-01 19:41] LABS: ALT 29 U/L (9-52); AST 21 U/L (14-36); Alkaline Phosphatase 74 U/L (38-126); Anion Gap 9 mmol/L; Blood Urea Nitrogen 12 mg/dL (7-17); Calcium 9.3 mg/dL (8.4-10.2); Carbon Dioxide 27 mmol/L (22-30); Chloride 101 mmol/L (98-107); Glucose 88 mg/dL (74-99); Magnesium 1.8 mg/dL (1.6-2.3); Non-African American GFR(MDRD) >60 (>60 ml/min/1.73 sqM); Potassium 4.2 mmol/L (3.5-5.1); Sodium 137 mmol/L (137-145); Total Bilirubin 0.4 mg/dL (0.2-1.3)
[2017-05-01 19:47] LABS: INR 1.1 (<1.1); Partial Thromboplastin Time 26.8 sec (22.0-30.0); Prothrombin Time 10.6 sec (9.0-12.0)
--- NOTE | 2017-05-01 19:52 | ED ---
General Adult HPI - General Chief complaint: Chest Pain Stated complaint: rt side and chest pain Time Seen by Provider: 05/01/17 18:52 Source: patient, RN notes reviewed, old records reviewed Mode of arrival: wheelchair Limitations: no limitations - History of Present Illness Initial comments: This is a 38-year-old female the ER for evaluation of chest pain. Anterior heaviness in chest pain was stabbing pain. Right-sided flank pain wrapping around her chest. Shortness of breath. No diaphoresis. Patient has history of smoking. No history of heart disease. No surgical history no travel history no sick contacts the cough congestion, no fevers. - Related Data Home Medications Medication Instructions Recorded Confirmed No Known Home Medications [No 12/31/16 05/01/17 Known Home Medications] Allergies Allergy/AdvReac Type Severity Reaction Status Date / Time No Known Allergies Allergy Verified 05/01/17 19:02 Review of Systems ROS Statement: Those systems with pertinent positive or pertinent negative responses have been documented in the HPI. ROS Other: All systems not noted in ROS Statement are negative. Past Medical History Past Medical History: No Reported History Additional Past Medical History / Comment(s): stomach ulcers, back pain History of Any Multi-Drug Resistant Organisms: None Reported Past Surgical History: Appendectomy, Hysterectomy, Orthopedic Surgery, Tubal Ligation Additional Past Surgical History / Comment(s): right knee, left knee, left shoulder Past Anesthesia/Blood Transfusion Reactions: No Reported Reaction Past Psychological History: Anxiety, Depression Smoking Status: Current every day smoker Past Alcohol Use History: Occasional Past Drug Use History: None Reported General Exam Limitations: no limitations General appearance: alert, in no apparent distress, anxious Head exam: Present: atraumatic, normocephalic, normal inspection Eye exam: Present: normal appearance, PERRL, EOMI. Absent: scleral icterus, conjunctival injection, periorbital swelling ENT exam: Present: normal exam, mucous membranes moist Neck exam: Present: normal inspection. Absent: tenderness, meningismus, lymphadenopathy Respiratory exam: Present: normal lung sounds bilaterally. Absent: respiratory distress, wheezes, rales, rhonchi, stridor Cardiovascular Exam: Present: regular rate, normal rhythm, normal heart sounds. Absent: systolic murmur, diastolic murmur, rubs, gallop, clicks GI/Abdominal exam: Present: soft, normal bowel sounds. Absent: distended, tenderness, guarding, rebound, rigid Extremities exam: Present: normal inspection, full ROM, normal capillary refill. Absent: tenderness, pedal edema, joint swelling, calf tenderness Back exam: Present: normal inspection Neurological exam: Present: alert, oriented X3, CN II-XII intact Psychiatric exam: Present: normal affect, normal mood Skin exam: Present: warm, dry, intact, normal color. Absent: rash Course Vital Signs 05/01/17 05/01/17 05/01/17 18:41 19:17 19:53 Temperature 98.2 F 98.0 F Pulse Rate 95 83 Respiratory 18 16 16 Rate Blood Pressure 106/73 101/56 O2 Sat by Pulse 100 97 Oximetry 05/01/17 20:30 Temperature Pulse Rate 74 Respiratory 16 Rate Blood Pressure 103/57 O2 Sat by Pulse 98 Oximetry - Reevaluation(s) Reevaluation #1: 05/01/17 20:40 Patient still has chest pain at this time EKG Findings - EKG Comments: EKG Findings:: EKG shows sinus rhythm rate of 82, OK 150, QRS 94, QTc 460 Medical Decision Making - Medical Decision Making For a female ER for evaluation regarding chest pain. History of smoking, denies any other risk factors. Patient will be admitted for cardiac observation , Negative for Gallbladder Disease. - Lab Data Result diagrams: 05/01/17 19:05 05/01/17 19:05 Lab Results 05/01/17 05/01/17 05/01/17 Range/Units 19:05 19:05 19:05 WBC 9.9 (3.8-10.6) k/uL RBC 4.32 (3.80-5.40) m/uL Hgb 14.1 (11.4-16.0) gm/dL Hct 39.5 (34.0-46.0) % MCV 91.3 (80.0-100.0) fL MCH 32.5 (25.0-35.0) pg MCHC 35.6 (31.0-37.0) g/dL RDW 12.2 (11.5-15.5) % Plt Count 490 H (150-450) k/uL Neutrophils % 57 % Lymphocytes % 34 % Monocytes % 4 % Eosinophils % 2 % Basophils % 1 % Neutrophils # 5.6 (1.3-7.7) k/uL Lymphocytes # 3.4 (1.0-4.8) k/uL Monocytes # 0.4 (0-1.0) k/uL Eosinophils # 0.2 (0-0.7) k/uL Basophils # 0.1 (0-0.2) k/uL PT (9.0-12.0) sec INR (<1.1) APTT (22.0-30.0) sec D-Dimer (<0.60) mg/L FEU Sodium 137 (137-145) mmol/L Potassium 4.2 (3.5-5.1) mmol/L Chloride 101 (98-107) mmol/L Carbon Dioxide 27 (22-30) mmol/L Anion Gap 9 mmol/L BUN 12 (7-17) mg/dL Creatinine 0.67 (0.52-1.04) mg/dL Est GFR (MDRD) Af Amer >60 (>60 ml/min/1.73 sqM) Est GFR (MDRD) Non-Af >60 (>60 ml/min/1.73 sqM) Glucose 88 (74-99) mg/dL Calcium 9.3 (8.4-10.2) mg/dL Magnesium 1.8 (1.6-2.3) mg/dL Total Bilirubin 0.4 (0.2-1.3) mg/dL AST 21 (14-36) U/L ALT 29 (9-52) U/L Alkaline Phosphatase 74 (38-126) U/L Total Creatine Kinase 120 (30-135) U/L CK-MB (CK-2) 1.9 (0.0-2.4) ng/mL CK-MB (CK-2) Rel Index 1.6 Troponin I <0.012 (0.000-0.034) ng/mL Total Protein 7.0 (6.3-8.2) g/dL Albumin 4.1 (3.5-5.0) g/dL Lipase 94 (23-300) U/L 05/01/ Range/Units 19:05 WBC (3.8-10.6) k/uL RBC (3.80-5.40) m/uL Hgb (11.4-16.0) gm/dL Hct (34.0-46.0) % MCV (80.0-100.0) fL MCH (25.0-35.0) pg MCHC (31.0-37.0) g/dL RDW (11.5-15.5) % Plt Count (150-450) k/uL Neutrophils % % Lymphocytes % % Monocytes % % Eosinophils % % Basophils % % Neutrophils # (1.3-7.7) k/uL Lymphocytes # (1.0-4.8) k/uL Monocytes # (0-1.0) k/uL Eosinophils # (0-0.7) k/uL Basophils # (0-0.2) k/uL PT 10.6 (9.0-12.0) sec INR 1.1 (<1.1) APTT 26.8 (22.0-30.0) sec D-Dimer 0.28 (<0.60) mg/L FEU Sodium (137-145) mmol/L Potassium (3.5-5.1) mmol/L Chloride (98-107) mmol/L Carbon Dioxide (22-30) mmol/L Anion Gap mmol/L BUN (7-17) mg/dL Creatinine (0.52-1.04) mg/dL Est GFR (MDRD) Af Amer (>60 ml/min/1.73 sqM) Est GFR (MDRD) Non-Af (>60 ml/min/1.73 sqM) Glucose (74-99) mg/dL Calcium (8.4-10.2) mg/dL Magnesium (1.6-2.3) mg/dL Total Bilirubin (0.2-1.3) mg/dL AST (14-36) U/L ALT (9-52) U/L Alkaline Phosphatase (38-126) U/L Total Creatine Kinase (30-135) U/L CK-MB (CK-2) (0.0-2.4) ng/mL CK-MB (CK-2) Rel Index Troponin I (0.000-0.034) ng/mL Total Protein (6.3-8.2) g/dL Albumin (3.5-5.0) g/dL Lipase (23-300) U/L - Radiology Data Radiology results: report reviewed (Chest x-ray is negative for acute disease), image reviewed Critical Care Time Critical Care Time: Yes Total Critical Care Time: 31 Disposition Clinical Impression: Chest pain Disposition: ADMITTED IP TO THIS HOSP Condition: Undetermined Instructions: Chest Pain (ED) Referrals: Chalo Ayala MD [Primary Care Provider] - 1-2 days
--- NOTE | 2017-05-01 20:01 | US ---
EXAMINATION TYPE: US gallbladder DATE OF EXAM: 05/01/2017 COMPARISON: 12/27/2008 CLINICAL HISTORY: RUQ Pain/ chest pain. Nausea EXAM MEASUREMENTS: Liver Length: 15.5 cm Gallbladder Wall: 0.2 cm CBD: 0.3 cm Right Kidney: 10.9 x 4.5 x 5.0 cm Pancreas: Tail obscured by overlying bowel gas, visualized portions wnl Liver: wnl Gallbladder: wnl Evidence for sonographic Huddleston's sign: No CBD: wnl Right Kidney: No hydronephrosis or masses seen. Cyst in lower pole seen on previous CT not visualize d on today's exam IMPRESSION: Normal exam. No gallstones or dilated ducts. No adverse change compared to old exam.
[2017-05-01 20:04] LABS: Creatine Kinase 120 U/L (30-135)
[2017-05-01 20:16] LABS: Creatine Kinase MB 1.9 ng/mL (0.0-2.4); Troponin I <0.012 ng/mL (0.000-0.034)
[2017-05-01] MEDS ORDERED: NITROGLYCERIN SL TABS 0.4 MG TAB SUBLINGUAL PRN (20:40)
[2017-05-01 22:06] VITALS: BMI 35.2
[2017-05-01] MEDS: MORPHINE SULFATE 4 MG/ML SYRINGE IVP PRN (22:13)
[2017-05-02 02:01] LABS: Creatine Kinase 80 U/L (30-135)
[2017-05-02 02:14] LABS: Creatine Kinase MB 1.2 ng/mL (0.0-2.4); Troponin I <0.012 ng/mL (0.000-0.034)
[2017-05-02] MEDS: MORPHINE SULFATE 4 MG/ML SYRINGE IVP PRN ×2 (06:59→13:39)
[2017-05-02 07:16] VITALS: RESP 16
[2017-05-02 07:28] LABS: Cholesterol 162 mg/dL (<200); HDL Cholesterol 41 mg/dL (40-60); Triglycerides 112 mg/dL (<150)
[2017-05-02 08:00] LABS: Creatine Kinase 77 U/L (30-135)
[2017-05-02 08:12] LABS: Creatine Kinase MB 1.3 ng/mL (0.0-2.4); Troponin I <0.012 ng/mL (0.000-0.034)
[2017-05-02] MEDS ORDERED: ASPIRIN 325 MG TAB PO SCH (09:00)
[2017-05-02] MEDS ORDERED: ONDANSETRON 4 MG/2 ML VIAL IVP PRN (10:09)
--- NOTE | 2017-05-02 11:02 | CONS ---
DATE OF CONSULTATION: Mrs. Rosa is a 46-year-old female with no prior documented history of coronary artery disease, who presented with right-sided chest discomfort. The discomfort started yesterday at around 11:00 in the morning and persisted when she went to work around 3:00. Because of persistence symptoms that were radiating from the right upper quadrant and right side of the chest towards the middle of the chest, came into to emergency room and subsequently admitted. She felt mildly dizzy and dyspneic. She had mild nausea. She is usually active physically. She exercises on a regular basis, has no exertional chest pain. Denies any symptoms of chest pain with her physical activity. No dyspnea. No dizziness. No palpitation. No syncope. No PND, orthopnea, or peripheral edema. She has no prior cardiac history. Her coronary risk factors are positive for smoking. She is nondiabetic. There is no history of hypertension. Her medications at home are none. REVIEW OF SYSTEMS: RESPIRATORY SYSTEM: She had a prior history of bronchitis, but not recently. No wheezing. GI SYSTEM: Prior history of ulcer. No recent GI bleeding. SYSTEM: She had history of hematuria, but no dysuria. NERVOUS SYSTEM: No stroke or seizure. PHYSICAL EXAMINATION: She is a 46-year-old female, alert, oriented, in no apparent distress. Blood pressure 114/60 with the heart rate in the 60s. HEAD: Normocephalic. EYES: Sclerae anicteric. NECK: Good upstroke. No bruit. No jugular venous distention. LUNGS: Clear to auscultation. HEART: Regular rate and rhythm. S1, S2, no S3, no S4, no murmur or rub. ABDOMEN: Soft, mild right upper quadrant tenderness. Positive bowel sounds. No organomegaly. EXTREMITIES: No edema. Intact distal pulses. Lab data revealed troponin less than 0.012 for 3 samples BUN and creatinine 12 and 0.67. Potassium 4.2. Hemoglobin of 14.1, white blood cell of 9.9. Her AST is 21, ALT 29. EKG revealed sinus mechanism, normal axis and intervals, rare PVCs. No acute changes. Ultrasound of the gallbladder showed no evidence of gallstones. Chest x-ray revealed no active changes. IMPRESSION: 1. Right-sided chest discomfort, atypical for ischemic heart disease, probably noncardiac. 2. History of smoking. RECOMMENDATIONS: I will proceed with stress echocardiogram. If there is no evidence of abnormalities then no further cardiac workup will be needed. Thank you for this consult. We will follow with you.
--- NOTE | 2017-05-02 12:26 | ECHOS ---
DATE OF SERVICE: 05/02/2017 AGE: 46Y SEX: F HT: 64 WT: 205 lbs. Protocol John: X Others: Stress Echo Stage: III Dur. of Exercise: 9 minutes *Heart Rate Blood Pressure *Rest: 69 Rest: 125/51 * *Max. Achieved: 135 Maximum BP: 184/71 85% PMHR: 146 100% PMHR: 172 *METS: 10.3 INDICATIONS: Chest pain. MEDICATIONS: Patient was exercised for a total period of 9 minutes. Peak heart rate of 135 was achieved. Maximum blood pressure of 184/71 mmHg was noted. Resting EKG shows normal sinus rhythm with normal MO interval and QRS duration and normal ST-T waves. No ST segment depression suggestive of ischemia is noted. The baseline echocardiographic images reveal a normal left ventricular chamber size with normal left ventricular systolic function. In the immediate postexercise period, normal increase in the wall thickness and contractility is noted. FINAL IMPRESSION: This stress echocardiographic study is negative for stress-induced ischemia. EKG portion of the stress test is not suggestive of ischemia. Patient's exercise tolerance is normal.
[2017-05-02 16:26] VITALS: BP 89/50; PULSE 71; TEMP 98
[2017-05-02] MEDS ORDERED: LIDOCAINE VISCOUS 2% 15 ML CUP MUCOUS MEM ONE (17:54)
--- NOTE | 2017-05-02 18:07 | P.HPIM ---
History of Present Illness H&P Date: 05/02/17 Chief Complaint: Chest pain, nausea This 38-year-old female known to the practice presents to the emergency room with chest discomfort right upper quadrant pain. Patient states she had anterior heaviness in the chest which was stabbing in nature. Right-sided flank pain wrapping around to the back. Dyspnea no diaphoresis history of pack a day cigarette smoking no history of heart disease no surgical history unknown history of travel or sick contacts Review of Systems Constitutional: Reports as per HPI Eyes: bilateral as per HPI Ears, nose, mouth and throat: Reports as per HPI Breasts: Reports as per HPI Cardiovascular: Reports chest pain Respiratory: Reports dyspnea Gastrointestinal: Reports as per HPI Genitourinary: Reports as per HPI Menstruation: Reports as per HPI Musculoskeletal: Reports as per HPI Integumentary: Reports as per HPI Neurological: Reports as per HPI Psychiatric: Reports as per HPI Past Medical History Past Medical History: No Reported History Additional Past Medical History / Comment(s): stomach ulcers, back pain, DJD History of Any Multi-Drug Resistant Organisms: None Reported Past Surgical History: Appendectomy, Hysterectomy, Orthopedic Surgery, Tubal Ligation Additional Past Surgical History / Comment(s): right knee, left knee, left shoulder Past Anesthesia/Blood Transfusion Reactions: No Reported Reaction Past Psychological History: Anxiety, Depression Smoking Status: Current every day smoker Past Alcohol Use History: Occasional Past Drug Use History: None Reported Medications and Allergies Home Medications Medication Instructions Recorded Confirmed Type No Known Home Medications [No 12/31/16 05/01/17 History Known Home Medications] Allergies Allergy/AdvReac Type Severity Reaction Status Date / Time No Known Allergies Allergy Verified 05/01/17 19:02 Physical Exam Osteopathic Statement: *. No significant issues noted on an osteopathic structural exam other than those noted in the History and Physical/Consult. Vitals: Vital Signs Temp Pulse Pulse Resp BP BP Pulse Ox 05/02/17 16:00 98 F 71 16 89/50 93 L 05/02/17 12:00 59 L 16 102/56 98 05/02/17 08:00 59 L 16 05/02/17 07:15 97.9 F 59 L 16 95/53 100 05/02/17 04:00 57 L 18 05/02/17 03:55 97.9 F 59 L 18 93/52 99 05/02/17 00:01 98.4 F 68 16 114/59 99 05/02/17 00:00 103 H 16 05/01/17 21:50 98.1 F 82 16 127/61 100 05/01/17 21:09 97.4 F L 72 18 103/67 99 05/01/17 20:30 74 16 103/57 98 05/01/17 19:53 16 05/01/17 19:17 98.0 F 83 16 101/56 97 05/01/17 18:41 98.2 F 95 18 106/73 100 Intake and Output 05/02/17 05/02/17 05/02/17 06:59 14:59 22:59 Other: Voiding Method Toilet Toilet # Voids 3 3 Weight 92.986 kg Patient Weight 05/03/17 06:59 Weight 92.986 kg General: [Patient awake, alert and oriented times 3. Patient in no acute distress.] HEENT: [PERRL. EOMI. No pharyngeal erythema or exudate.] Neck: [No adenopathy.] Cardiac: [Heart regular in rate and rhythm. No S3. No S4. No clicks, rubs. No murmur.] Lungs: [Clear to auscultation bilaterally.] Mild dyspnea with midsternal chest discomfort Abdomen: [No mass. No organomegaly. Bowel sounds presnt and normoactive in all 4 quadrants.] Right-sided upper quadrant pain radiating to the back Extremes: [No edema no cyanosis no claudication normal pulses] : [] Musculoskeletal: [No joint erythema, edema or tenderness.] Skin: [No rash.] Neurologic: [No lateralizing deficits. CN II - XII grossly intact.] Lymphatic: [No adenopathy.] Results CBC & Chem 7: 05/01/17 19:05 05/01/17 19:05 Labs: Abnormal Lab Results - Last 24 Hours (Table) 05/01/17 Range/Units 19:05 Plt Count 490 H (150-450) k/uL Thrombosis Risk Factor Assmnt - DVT/VTE Prophylaxis DVT/VTE Prophylaxis: Low risk, early ambulation encouraged - Choose All That Apply Each Factor Represents 1 point: Age 41-60 years Thrombosis Risk Factor Assessment Total Risk Factor Score: 1 Thrombosis Risk Factor Assessment Level: Low Risk Assessment and Plan Plan: Assessment and plan: Patient has atypical chest pain noncardiac in nature Troponins are all negative Stress echocardiogram completely negative patient walked for 9 minutes during a John protocol echocardiogram The echo showed no evidence of cardiac disease Patient complains at this time of right-sided epigastric tenderness radiating to the back gallbladder ultrasound showed no evidence of gallstones or dilated duct We'll discharge patient home today will give Mylanta, elixir, and viscus lidocaine as a slurry We'll see patient Saturday or Saturday and schedule HIDA scan
[2017-05-02] MEDS ORDERED: MAG HYDROX/AL HYDROX/SIMETH 30 ML CUP PO STA (18:08)
== END 2017-05-02 19:10 | disposition home or self-care (01) ==
LOC: EC 18:38 → 3OBS 20:40
PROVIDERS: ADMIT Family Medicine; ATTEND Family Medicine
DX: R07.89 Other chest pain (principal); R10.11 Right upper quadrant pain; R11.0 Nausea; R06.02 Shortness of breath; M54.9 Dorsalgia, unspecified; F41.9 Anxiety disorder, unspecified; F32.9 Major depressive disorder, single episode, unspecified; M19.90 Unspecified osteoarthritis, unspecified site; F17.200 Nicotine dependence, unspecified, uncomplicated; Z87.11 Personal history of peptic ulcer disease; Z90.710 Acquired absence of both cervix and uterus
CPT/HCPCS: 99291 ×2; 96374; 96376; 36415; 93005; 93017; 93350; 85379; 80061; 80053; 82550 ×2; 82553 ×2; 83690; 83735; 84484 ×2; 85025; 85610; 85730; 71020; 76705; G0378 ×2; J2270 ×2; J2405

== ENCOUNTER → 2017-05-20 | Outpatient (CLI) | payer OTHER ==
--- NOTE | 2017-05-20 09:45 | NM ---
EXAMINATION TYPE: NM hepatobiliary w EF DATE OF EXAM: 05/20/2017 COMPARISON: Ultrasound gallbladder 05/01/2017, prior hepatobiliary scan 12/28/2008 HISTORY: Right upper quadrant pain TECHNIQUE: After the intravenous administration of 4.98 mCi Tc 99m Mebrofenin hepatobiliary scintigra phy is performed. Immediate images post injection. FINDINGS: There is satisfactory initial accumulation of tracer by the liver. The gallbladder is visualized wit hin 14 minutes. The small bowel activity is noted within 14 minutes. At one hour 8 ounces of oral e nsure plus is given to mimic CCK and gallbladder ejection fraction is calculated at 58 %, in the norm al range. Therefore there is no scintigraphic evidence of cystic or common bile duct obstruction to suggest acute cholecystitis or gallbladder dyskinesia. IMPRESSION: Exam is within normal limits.
== END ==
LOC: RADNMMAIN 06:44
PROVIDERS: ATTEND Family Medicine
DX: R10.11 Right upper quadrant pain (principal)
CPT/HCPCS: 78226; A9537

== ENCOUNTER 2017-05-24 10:55 | Day surgery (SDC) | payer OTHER ==
[2017-05-23 13:46] VITALS: BMI 34.7
[~2017-05-24 10:55] MED LIST: LACTATED RINGERS 1,000 ML IV ONE
[2017-05-24 11:34] VITALS: RESP 16; TEMP 97.6
--- NOTE | 2017-05-24 12:02 | P.GSHP ---
History of Present Illness H&P Date: 05/24/17 Chief Complaint: Abdominal pain Patient is been having bad pain in the right side under the rib cage. Started in mid April. There were initially concerned it was cardiac related. She had a negative stress test. She is nauseated with lightheadedness. Her appetite is diminished. She has a history of known ulcer disease. Her recent HIDA scan and ultrasound were both normal. Past Medical History Past Medical History: No Reported History Additional Past Medical History / Comment(s): ABDOMINAL PAIN, stomach ulcers, back pain, History of Any Multi-Drug Resistant Organisms: None Reported Past Surgical History: Appendectomy, Hysterectomy, Orthopedic Surgery, Tubal Ligation Additional Past Surgical History / Comment(s): right knee, left knee, left shoulder Past Anesthesia/Blood Transfusion Reactions: No Reported Reaction Smoking Status: Current every day smoker Medications and Allergies Home Medications Medication Instructions Recorded Confirmed Type Omeprazole [PriLOSEC] 20 mg PO DAILY PRN 05/23/17 05/24/17 History Allergies Allergy/AdvReac Type Severity Reaction Status Date / Time No Known Allergies Allergy Verified 05/24/17 11:12 Surgical - Exam Vital Signs Temp Pulse Resp BP Pulse Ox 97.6 F 76 16 95/62 96 05/24/17 11:33 05/24/17 11:33 05/24/17 11:33 05/24/17 11:33 05/24/17 11:33 Physical exam: General: Well-developed, well-nourished HEENT: Normocephalic, sclerae nonicteric Abdomen: Mild upper quadrant tenderness, nondistended Extremities: No edema Neuro: Alert and oriented Assessment and Plan (1) Abdominal pain Narrative/Plan: Will proceed with upper endoscopy at this time. CT abdomen ordered. Status: Acute
[2017-05-24] MEDS ORDERED: MIDAZOLAM 2 MG/2 ML VIAL ONE (12:05)
[2017-05-24] MEDS ORDERED: fentaNYL (PF) 50 MCG/ML 2 ML AMP ONE (12:05)
[2017-05-24] MEDS ORDERED: LIDOCAINE 1% INJ 10MG/ML (20 ML MDV) ONE (12:05)
[2017-05-24] MEDS ORDERED: GLYCOPYRROLATE 0.2 MG/ML 2 ML VIAL ONE (12:05)
[2017-05-24] MEDS ORDERED: PROPOFOL 10 MG/ML 20 ML VIAL IV ONE (12:05)
--- NOTE | 2017-05-24 12:16 | P.PCN ---
Date of Procedure: 05/24/17 Preoperative Diagnosis: Postoperative Diagnosis: Procedure(s) Performed: Preoperative Dx: Abdominal pain Postoperative Dx: Minimal gastritis Procedure: EGD with Bx Anesthesia: Sedation Endoscopist: Dr. Gonzalez Specimens: Antrum Endoscopic Procedure: The patient was on the endoscopy table in the left decubitus position. The Olympus gastroscope was inserted into the oropharynx and passed under direct visualization to the region of the third portion of the duodenum. From that point the scope was slowly withdrawn inspecting all surfaces carefully. There were no neoplastic inflammatory or polypoid lesions throughout the duodenum. The pylorus was widely patent. The stomach was carefully inspected. There was minimal gastritis. A biopsy of the antrum took place to rule out H. pylori. Retroflexion revealed a normal hiatus. The esophagus was then carefully examined. There were no neoplastic inflammatory or polypoid lesions throughout the visualized esophagus. The patient was then taken to the recovery room in stable condition per anesthesia guidelines. Recommendations: Continue antiacids. Await CT abdomen. Implants: Indications for Procedure: Operative Findings: Description of Procedure:
[2017-05-24 12:51] VITALS: BP 98/69; PULSE 68
== END 2017-05-24 13:10 | disposition home or self-care (01) ==
LOC: ORWHC2ENDO 10:55
PROVIDERS: ATTEND Surgery
DX: K29.50 Unspecified chronic gastritis without bleeding (principal); K21.9 Gastro-esophageal reflux disease without esophagitis; Z87.11 Personal history of peptic ulcer disease; F17.200 Nicotine dependence, unspecified, uncomplicated
CPT/HCPCS: 88305; 88342; 43239; J2250; J2001; J3010; J2704

== ENCOUNTER → 2017-05-29 | Outpatient (CLI) | payer OTHER ==
--- NOTE | 2017-05-29 16:52 | CT ---
EXAMINATION TYPE: CT abdomen pelvis w con DATE OF EXAM: 05/29/2017 REFERENCE: NONE HISTORY: R10.13 epigastric pain HISTORY: RUQ pain REFERENCE: NONE CT DLP: 1403.1 mGy Automated exposure control for dose reduction was used. TECHNIQUE: Helical acquisition through the abdomen and pelvis was obtained following the oral ingesti on of with Oral Contrast and following intravenous administration of 100 mL of Omnipaque 300. The dale a was reformatted in axial, coronal and sagittal projections. FINDINGS: There is some dependent atelectasis within the dependent portions of the lungs. There is n o pleural or pericardial fluid. The heart is not enlarged. There is a small hiatal hernia. Within the abdomen, the liver is prominent measuring 21 cm. This is largely due to a prominent Henrietta 's lobe. The gallbladder and spleen are normal. Both adrenal glands are normal. Both kidneys demonstrate function and appear morphologically normal. The pancreas is unremarkable. There is no significant retroperitoneal, iliac or inguinal adenopathy. The uterus and ovaries are not visualized. The bladder is unremarkable. There is no significant diverticular change and there is no radiographic evidence of diverticulitis. The appendix is not visualized. Small bowel loops are normal. There is a small umbilical hernia containing fat only with a 1 cm mild. There is no free fluid and no free air. There is mild facet arthropathy in the L4-5 facets. No bony destructive lesion is seen. IMPRESSION: 1. SMALL HIATAL HERNIA. 2. MILD PROMINENCE OF THE LIVER, LARGELY DUE TO A PROMINENT HENRIETTA'S LOBE. 3. SMALL UMBILICAL HERNIA CONTAINING FAT ONLY WITH A 1 CM MOUTH. 4. MINIMAL FACET ARTHROPATHY, L4-5.
== END | disposition home or self-care (01) ==
LOC: RADCTMAIN 06:58
PROVIDERS: ATTEND Surgery
DX: K42.9 Umbilical hernia without obstruction or gangrene (principal); K44.9 Diaphragmatic hernia without obstruction or gangrene; K76.89 Other specified diseases of liver
CPT/HCPCS: 74177; Q9967

== ENCOUNTER 2017-11-19 18:46 | Observation (INO) | payer OTHER ==
[2017-11-19 19:36] LABS: Glucose,Whole Blood 91 mg/dL (75-99)
[2017-11-19] MEDS ORDERED: SODIUM CHLORIDE 0.9% 500 ML IV STA (20:07)
[2017-11-19] MEDS ORDERED: SODIUM CHLORIDE 0.9% 1,000 ML IV STA (20:07)
[2017-11-19 20:46] LABS: Basophils % (A) 0 %; Eosinophils # (A) 0.2 k/uL (0-0.7); Eosinophils % (A) 2 %; HCT 43.2 % (34.0-46.0); HGB 14.5 gm/dL (11.4-16.0); Lymphocytes # (A) 2.4 k/uL (1.0-4.8); Lymphocytes % (A) 28 %; MCH 31.1 pg (25.0-35.0); MCHC 33.7 g/dL (31.0-37.0); MCV 92.4 fL (80.0-100.0); Mean Platelet Volume 6.5; Monocytes # (A) 0.4 k/uL (0-1.0); Monocytes % (A) 4 %; Neutrophils # (A) 5.5 k/uL (1.3-7.7); Neutrophils % (A) 65 %; Platelet Count 506 k/uL (150-450); RBC 4.67 m/uL (3.80-5.40); RDW 12.8 % (11.5-15.5); WBC 8.6 k/uL (3.8-10.6)
[2017-11-19 20:56] LABS: ALT 31 U/L (9-52); AST 27 U/L (14-36); Albumin 4.5 g/dL (3.5-5.0); Alkaline Phosphatase 80 U/L (38-126); Anion Gap 11 mmol/L; Appearance,Urine Cloudy (Clear); Bacteria,Urine Few /hpf; Bilirubin,Urine Negative (Negative); Blood Urea Nitrogen 16 mg/dL (7-17); Blood,Urine Trace (Negative); Calcium 9.9 mg/dL (8.4-10.2); Carbon Dioxide 27 mmol/L (22-30); Chloride 102 mmol/L (98-107); Color,Urine Yellow; Glucose 93 mg/dL (74-99); Glucose,Urine (UA) Negative (Negative); Ketones,Urine Trace (Negative); Leukocyte Esterase,Urine Large (Negative); Mucus,Urine Few /hpf; Nitrite,Urine Negative (Negative); PH, Urine 5.5 (5.0-8.0); Phosphorus 3.7 mg/dL (2.5-4.5); Protein,Urine Trace (Negative); RBC,Urine 7 /hpf (0-5); Sodium 140 mmol/L (137-145); Specific Gravity,Urine 1.031 (1.001-1.035); Squamous Epithelial Cell,Urine 19 /hpf (0-4); Total Bilirubin 0.4 mg/dL (0.2-1.3); Total Protein 7.8 g/dL (6.3-8.2); Urobilinogen,Urine <2.0 mg/dL (<2.0); WBC,Urine 6 /hpf (0-5)
[2017-11-19 20:58] LABS: Potassium 4.7 mmol/L (3.5-5.1)
[2017-11-19 21:05] LABS: Creatine Kinase 169 U/L (30-135)
[2017-11-19 21:17] LABS: Partial Thromboplastin Time 26.9 sec (22.0-30.0); Prothrombin Time 10.2 sec (9.0-12.0)
[2017-11-19 21:18] LABS: Troponin I <0.012 ng/mL (0.000-0.034)
--- NOTE | 2017-11-19 21:28 | ED ---
General Adult HPI - General Chief complaint: Dizziness Stated complaint: Weakness Time Seen by Provider: 11/19/17 20:07 Source: patient, RN notes reviewed, old records reviewed Mode of arrival: ambulatory Limitations: no limitations - History of Present Illness Initial comments: This is a 47-year-old female to the ER for evaluation of near syncopal event. Patient has history of smoking, patient has had prior stress tests. Patient coming in with chest pain continued chest pain as well as a near syncopal event. Patient began very diaphoretic lightheaded and flushed, both symptoms have resolved patient still feeling lightheaded with chest pain now - Related Data Home Medications Medication Instructions Recorded Confirmed Ibuprofen [Motrin] 800 mg PO TID PRN 11/19/17 11/19/17 Allergies Allergy/AdvReac Type Severity Reaction Status Date / Time No Known Allergies Allergy Verified 11/19/17 20:11 Review of Systems ROS Statement: Those systems with pertinent positive or pertinent negative responses have been documented in the HPI. ROS Other: All systems not noted in ROS Statement are negative. Past Medical History Past Medical History: No Reported History Additional Past Medical History / Comment(s): ABDOMINAL PAIN, stomach ulcers, back pain, History of Any Multi-Drug Resistant Organisms: None Reported Past Surgical History: Appendectomy, Hysterectomy, Orthopedic Surgery, Tubal Ligation Additional Past Surgical History / Comment(s): right knee, left knee, left shoulder Past Anesthesia/Blood Transfusion Reactions: No Reported Reaction Past Psychological History: No Psychological Hx Reported Smoking Status: Current every day smoker Past Alcohol Use History: None Reported Past Drug Use History: None Reported General Exam Limitations: no limitations General appearance: alert, in no apparent distress, anxious Head exam: Present: atraumatic, normocephalic, normal inspection Eye exam: Present: normal appearance, PERRL, EOMI. Absent: scleral icterus, conjunctival injection, periorbital swelling ENT exam: Present: normal exam, mucous membranes moist Neck exam: Present: normal inspection. Absent: tenderness, meningismus, lymphadenopathy Respiratory exam: Present: normal lung sounds bilaterally. Absent: respiratory distress, wheezes, rales, rhonchi, stridor Cardiovascular Exam: Present: regular rate, normal rhythm, normal heart sounds. Absent: systolic murmur, diastolic murmur, rubs, gallop, clicks GI/Abdominal exam: Present: soft, normal bowel sounds. Absent: distended, tenderness, guarding, rebound, rigid Extremities exam: Present: normal inspection, full ROM, normal capillary refill. Absent: tenderness, pedal edema, joint swelling, calf tenderness Back exam: Present: normal inspection Neurological exam: Present: alert, oriented X3, CN II-XII intact Psychiatric exam: Present: normal affect, normal mood Skin exam: Present: warm, dry, intact, normal color. Absent: rash Course Vital Signs 11/19/17 11/19/17 11/19/17 19:29 20:32 22:14 Temperature 98.2 F Pulse Rate 89 64 68 Respiratory 18 18 18 Rate Blood Pressure 125/77 96/54 101/62 O2 Sat by Pulse 98 100 100 Oximetry - Reevaluation(s) Reevaluation #1: 11/19/17 23:23 Patient still remains with chest pain Medical Decision Making - Medical Decision Making 47 female DEL with near syncopal event with chest pain. Patient has no repeat syncopal events here in the ER but continued chest pain. Patient be admitted for cardiac observation - Lab Data Result diagrams: 11/19/17 20:26 11/19/17 20:26 Lab Results 11/19/17 11/19/17 11/19/17 Range/Units 19:34 20:26 20:26 WBC 8.6 (3.8-10.6) k/uL RBC 4.67 (3.80-5.40) m/uL Hgb 14.5 (11.4-16.0) gm/dL Hct 43.2 (34.0-46.0) % MCV 92.4 (80.0-100.0) fL MCH 31.1 (25.0-35.0) pg MCHC 33.7 (31.0-37.0) g/dL RDW 12.8 (11.5-15.5) % Plt Count 506 H (150-450) k/uL Neutrophils % 65 % Lymphocytes % 28 % Monocytes % 4 % Eosinophils % 2 % Basophils % 0 % Neutrophils # 5.5 (1.3-7.7) k/uL Lymphocytes # 2.4 (1.0-4.8) k/uL Monocytes # 0.4 (0-1.0) k/uL Eosinophils # 0.2 (0-0.7) k/uL Basophils # 0.0 (0-0.2) k/uL PT (9.0-12.0) sec INR (<1.2) APTT (22.0-30.0) sec Sodium (137-145) mmol/L Potassium (3.5-5.1) mmol/L Chloride (98-107) mmol/L Carbon Dioxide (22-30) mmol/L Anion Gap mmol/L BUN (7-17) mg/dL Creatinine (0.52-1.04) mg/dL Est GFR (MDRD) Af Amer (>60 ml/min/1.73 sqM) Est GFR (MDRD) Non-Af (>60 ml/min/1.73 sqM) Glucose (74-99) mg/dL POC Glucose (mg/dL) 91 (75-99) mg/dL POC Glu Integration Solution Architect Marjorie Black Calcium (8.4-10.2) mg/dL Phosphorus (2.5-4.5) mg/dL Magnesium (1.6-2.3) mg/dL Total Bilirubin (0.2-1.3) mg/dL AST (14-36) U/L ALT (9-52) U/L Alkaline Phosphatase (38-126) U/L Total Creatine Kinase 169 H (30-135) U/L CK-MB (CK-2) 3.0 H* (0.0-2.4) ng/mL CK-MB (CK-2) Rel Index 1.8 Troponin I <0.012 (0.000-0.034) ng/mL Total Protein (6.3-8.2) g/dL Albumin (3.5-5.0) g/dL Urine Color Urine Appearance (Clear) Urine pH (5.0-8.0) Ur Specific [place] (1.001-1.035) Urine Protein (Negative) Urine Glucose (UA) (Negative) Urine Ketones (Negative) Urine Blood (Negative) Urine Nitrite (Negative) Urine Bilirubin (Negative) Urine Urobilinogen (<2.0) mg/dL Ur Leukocyte Esterase (Negative) Urine RBC (0-5) /hpf Urine WBC (0-5) /hpf Ur Squamous Epith Cells (0-4) /hpf Urine Bacteria (None) /hpf Urine Mucus (None) /hpf 11/19/17 11/19/17 11/19/17 Range/Units 20:26 20:26 20:26 WBC (3.8-10.6) k/uL RBC (3.80-5.40) m/uL Hgb (11.4-16.0) gm/dL Hct (34.0-46.0) % MCV (80.0-100.0) fL MCH (25.0-35.0) pg MCHC (31.0-37.0) g/dL RDW (11.5-15.5) % Plt Count (150-450) k/uL Neutrophils % % Lymphocytes % % Monocytes % % Eosinophils % % Basophils % % Neutrophils # (1.3-7.7) k/uL Lymphocytes # (1.0-4.8) k/uL Monocytes # (0-1.0) k/uL Eosinophils # (0-0.7) k/uL Basophils # (0-0.2) k/uL PT 10.2 (9.0-12.0) sec INR 1.0 (<1.2) APTT 26.9 (22.0-30.0) sec Sodium 140 (137-145) mmol/L Potassium 4.7 (3.5-5.1) mmol/L Chloride 102 (98-107) mmol/L Carbon Dioxide 27 (22-30) mmol/L Anion Gap 11 mmol/L BUN 16 (7-17) mg/dL Creatinine 0.70 (0.52-1.04) mg/dL Est GFR (MDRD) Af Amer >60 (>60 ml/min/1.73 sqM) Est GFR (MDRD) Non-Af >60 (>60 ml/min/1.73 sqM) Glucose 93 (74-99) mg/dL POC Glucose (mg/dL) (75-99) mg/dL POC Glu Integration Solution Architect ID Calcium 9.9 (8.4-10.2) mg/dL Phosphorus 3.7 (2.5-4.5) mg/dL Magnesium 2.0 (1.6-2.3) mg/dL Total Bilirubin 0.4 (0.2-1.3) mg/dL AST 27 (14-36) U/L ALT 31 (9-52) U/L Alkaline Phosphatase 80 (38-126) U/L Total Creatine Kinase (30-135) U/L CK-MB (CK-2) (0.0-2.4) ng/mL CK-MB (CK-2) Rel Index Troponin I (0.000-0.034) ng/mL Total Protein 7.8 (6.3-8.2) g/dL Albumin 4.5 (3.5-5.0) g/dL Urine Color Yellow Urine Appearance Cloudy H (Clear) Urine pH 5.5 (5.0-8.0) Ur Specific [place] 1.031 (1.001-1.035) Urine Protein Trace H (Negative) Urine Glucose (UA) Negative (Negative) Urine Ketones Trace H (Negative) Urine Blood Trace H (Negative) Urine Nitrite Negative (Negative) Urine Bilirubin Negative (Negative) Urine Urobilinogen <2.0 (<2.0) mg/dL Ur Leukocyte Esterase Large H (Negative) Urine RBC 7 H (0-5) /hpf Urine WBC 6 H (0-5) /hpf Ur Squamous Epith Cells 19 H (0-4) /hpf Urine Bacteria Few H (None) /hpf Urine Mucus Few H (None) /hpf Disposition Clinical Impression: Chest pain, Near syncope Disposition: ADMITTED IP TO THIS [facility] Condition: Good Referrals: Chalo Ayala MD [Primary Care Provider] - 1-2 days
[2017-11-19] MEDS ORDERED: ONDANSETRON 4 MG/2 ML VIAL IVP STA (21:43)
[2017-11-19] MEDS ORDERED: ASPIRIN 81 MG PO STA (23:18)
[2017-11-19] MEDS ORDERED: NITROGLYCERIN SL TABS 0.4 MG TAB SUBLINGUAL PRN (23:18)
[2017-11-19] MEDS: SODIUM CHLORIDE 0.9% 1,000 ML IV SCH (23:48)
[2017-11-20 01:11] VITALS: BMI 35.9
[2017-11-20] MEDS: MORPHINE SULFATE 5 MG/ML SYRINGE IV PRN ×2 (01:35→07:56)
[2017-11-20 03:20] LABS: Cholesterol 145 mg/dL (<200); HDL Cholesterol 43 mg/dL (40-60); LDL Cholesterol,Calculated 89 mg/dL (0-99); Triglycerides 66 mg/dL (<150)
[2017-11-20 03:34] LABS: Creatine Kinase 112 U/L (30-135)
[2017-11-20 03:49] LABS: Troponin I <0.012 ng/mL (0.000-0.034)
[2017-11-20] MEDS: SODIUM CHLORIDE 0.9% 1,000 ML IV SCH (07:58)
[2017-11-20 08:03] VITALS: RESP 16
[2017-11-20] MEDS ORDERED: ENOXAPARIN 40 MG/0.4 ML SYRINGE SQ SCH (09:00)
[2017-11-20] MEDS ORDERED: ASPIRIN 325 MG TAB PO SCH (09:00)
[2017-11-20 09:16] LABS: Creatine Kinase 112 U/L (30-135)
[2017-11-20 09:29] LABS: Creatine Kinase MB 1.9 ng/mL (0.0-2.4); Troponin I <0.012 ng/mL (0.000-0.034)
[2017-11-20] MEDS ORDERED: ONDANSETRON 4 MG/2 ML VIAL IVP PRN (10:37)
[2017-11-20] MEDS ORDERED: ACETAMINOPHEN TAB 325 MG TAB PO PRN (10:38)
--- NOTE | 2017-11-20 11:04 | P.CRDCN ---
History of Present Illness Consult date: 11/20/17 Requesting physician: Chalo Ayala Consult reason: sycope Chief complaint: Near syncope History of present illness: This is a 47-year-old female with known history of hypertension, no diabetes, no hyperlipidemia, she does smoke a pack of cigarettes every 3-4 days , patient also has history of stress echocardiographic study performed in April of last year which was negative for any stress-induced ischemia. Patient states that she was at work yesterday, she works at a factory operating a machine, in the standing position. She states that all of a sudden she became extremely warm, and then she felt as though everything was going black, she pushed a patent to stop her machine and quickly sat down. She does state that she noticed some chest discomfort in the left upper chest area at that time but she is unsure exactly of one that started. She did not pass out completely but felt as though she may. After sitting down for a period of time she did drive herself to the emergency room for further evaluation. Patient states she's been feeling extremely tired and fatigued recently. Denies any fever or chills. White blood cell count 8.6, hemoglobin 4.5, platelet count 506. Sodium 140, potassium 4.7, BUN 16, creatinine 0.7. Troponins were negative 3. Blood pressure on arrival here 124/70 with a heart rate in the 80s, 98% on room air. No orthostatics documented. EKG shows normal sinus rhythm with inferior lateral Q waves. According to the patient, she fell a couple of weeks ago, did not hit her head, but she states that she injured the knee on her right leg, still causes her some discomfort, there is mild swelling noted there. At the time of my examination, patient denies any dizziness or lightheadedness, no palpitations, no chest discomfort at present. Past Medical History Past Medical History: No Reported History, Osteoarthritis (OA) Additional Past Medical History / Comment(s): ABDOMINAL PAIN, stomach ulcers, back pain,. pt stated she has umbilical hernia History of Any Multi-Drug Resistant Organisms: None Reported Past Surgical History: Appendectomy, Hysterectomy, Orthopedic Surgery, Tubal Ligation Additional Past Surgical History / Comment(s): right knee, left knee, left shoulder (2002) Past Anesthesia/Blood Transfusion Reactions: No Reported Reaction Past Psychological History: No Psychological Hx Reported Smoking Status: Current every day smoker Past Alcohol Use History: None Reported Additional Past Alcohol Use History / Comment(s): SMOKES 4 CIGARETTES A DAY, STARTED SMOKING AGE 10 Past Drug Use History: None Reported - Past Family History Father Family Medical History: No Reported History Mother Family Medical History: Osteoarthritis (OA) Medications and Allergies Home Medications Medication Instructions Recorded Confirmed Type Ibuprofen [Motrin] 800 mg PO TID PRN 11/19/17 11/19/17 History Allergies Allergy/AdvReac Type Severity Reaction Status Date / Time No Known Allergies Allergy Verified 11/19/17 20:11 Physical Exam Vitals: Vital Signs Temp Pulse Pulse Pulse Pulse Resp BP 11/20/17 08:00 97.5 F L 67 16 11/20/17 04:00 98.7 F 77 78 73 19 11/20/17 01:46 70 19 11/20/17 01:00 97.3 F L 70 19 11/20/17 00:25 97.3 F L 70 19 11/19/17 23:43 76 18 106/61 11/19/17 22:14 68 18 101/62 11/19/17 20:32 64 18 96/54 11/19/17 19:29 98.2 F 89 18 125/77 BP BP BP Pulse Ox 11/20/17 08:00 105/60 87/58 99 11/20/17 04:00 114/68 111/63 96/55 98 11/20/17 01:46 11/20/17 01:00 110/57 98 11/20/17 00:25 110/57 98 11/19/17 23:43 97 11/19/17 22:14 100 11/19/17 20:32 100 11/19/17 19:29 98 Intake and Output 11/19/17 11/20/17 11/20/17 22:59 06:59 14:59 Output Total 250 Balance -250 Output: Urine 250 Other: Voiding Method Toilet Toilet # Voids 1 Weight 94.801 kg 93 kg PHYSICAL EXAMINATION: HEENT: Head is atraumatic, normocephalic. Pupils equal, round. Neck is supple. There is no elevated jugular venous pressure. HEART EXAMINATION: Heart S1, S2 normal. No murmur or gallop heard. CHEST EXAMINATION: Lungs are clear to auscultation and precussion. No chest wall tenderness is noted on palpation or with deep breathing. ABDOMEN: Soft, nontender. Bowel sounds are heard. No organomegaly noted. EXTREMITIES: 2+ peripheral pulses with no evidence of peripheral edema and no calf tenderness noted. Positive mild swelling of the right knee area. NEUROLOGIC patient is awake, alert and oriented -3. . Results 11/19/17 20:26 11/19/17 20:26 Cardiac Enzymes 11/19/17 11/19/17 11/20/17 Range/Units 20:26 20: 02:36 AST 27 (14-36) U/L CK-MB (CK-2) 3.0 H* 2.0 (0.0-2.4) ng/mL Troponin I <0.012 <0.012 (0.000-0.034) ng/mL 11/20/17 Range/Units 08:22 AST (14-36) U/L CK-MB (CK-2) 1.9 (0.0-2.4) ng/mL Troponin I <0.012 (0.000-0.034) ng/mL Coagulation 11/19/17 Range/Units 20:26 PT 10.2 (9.0-12.0) sec APTT 26.9 (22.0-30.0) sec Lipids 11/20/17 Range/Units 02:36 Triglycerides 66 (<150) mg/dL Cholesterol 145 (<200) mg/dL HDL Cholesterol 43 (40-60) mg/dL CBC 11/19/17 Range/Units 20:26 WBC 8.6 (3.8-10.6) k/uL RBC 4.67 (3.80-5.40) m/uL Hgb 14.5 (11.4-16.0) gm/dL Hct 43.2 (34.0-46.0) % Plt Count 506 H (150-450) k/uL Comprehensive Metabolic Panel 11/19/17 Range/Units 20:26 Sodium 140 (137-145) mmol/L Potassium 4.7 (3.5-5.1) mmol/L Chloride 102 (98-107) mmol/L Carbon Dioxide 27 (22-30) mmol/L BUN 16 (7-17) mg/dL Creatinine 0.70 (0.52-1.04) mg/dL Glucose 93 (74-99) mg/dL Calcium 9.9 (8.4-10.2) mg/dL AST 27 (14-36) U/L ALT 31 (9-52) U/L Alkaline Phosphatase 80 (38-126) U/L Total Protein 7.8 (6.3-8.2) g/dL Albumin 4.5 (3.5-5.0) g/dL Current Medications Generic Name Dose Route Start Last Admin Trade Name Freq PRN Reason Stop Dose Admin Acetaminophen 650 mg 11/20/17 10:38 Tylenol Tab PO Q6HR PRN Fever and/ or Pain Aspirin 325 mg 11/20/17 09:00 11/20/17 07:58 Aspirin PO 325 mg DAILY JOSE MIGUEL Administration Enoxaparin Sodium 40 mg 11/20/17 09:00 Lovenox SQ DAILY JOSE MIGUEL Sodium Chloride 1,000 mls @ 100 mls/hr 11/19/17 23:30 11/20/17 07:58 Saline 0.9% IV 100 mls/hr .Q10H JOSE MIGUEL Administration Ketorolac Tromethamine 30 mg 11/20/17 12:00 Toradol IVP 11/24/17 10:39 Q6HR JOSE MIGUEL Morphine Sulfate 4 mg 11/19/17 23:18 11/20/17 07:56 Morphine Sulfate IV 2 mg Q5M PRN Administration Chest Pain Nitroglycerin 0.4 mg 11/19/17 23:18 Nitrostat SUBLINGUAL Q5M PRN Chest Pain Ondansetron HCl 4 mg 11/20/17 10:37 Zofran IVP Q6HR PRN Nausea And Vomiting Intake and Output 11/19/17 11/20/17 11/20/17 22:59 06:59 14:59 Output Total 250 Balance -250 Output: Urine 250 Other: Voiding Method Toilet Toilet # Voids 1 Weight 94.801 kg 93 kg 11/19/17 20:26 11/19/17 20:26 EKG Interpretations (text) EKG shows a normal sinus rhythm with inferior lateral Q waves. Assessment and Plan Plan: Assessment and plan #1 symptoms of near syncope, rule out cardiac causes. No arrhythmias noted on the monitor. No evidence of orthostasis. Patient does at time run a low blood pressure. #2 chest discomfort, EKG shows normal sinus rhythm with inferior lateral Q waves. Patient did undergo a stress echocardiographic study in April of last year which was negative for any reversible ischemia. Troponins negative 3 #3 nicotine dependence #4 recent fall with injury to the left knee Plan We will obtain an echocardiogram with Doppler study. Continue to monitor for any tachycardia or bradycardia arrhythmias. Discontinue aspirin. Obtain d- dimer. Further recommendations will be based on these findings and the patient' s clinical course. DNP note has been reviewed, I agree with a documented findings and plan of care. Patient was seen and examined.
[2017-11-20 11:24] VITALS: BP 80/48; PULSE 68; TEMP 97.6
--- NOTE | 2017-11-20 11:49 | ECHOF ---
Referral Reason:syncope, chest pain MEASUREMENTS -------- HEIGHT: 162.6 cm WEIGHT: 93.0 kg BP: 105/60 IVSd: 1.2 cm (0.6 - 1.1) LVIDd: 4.2 cm (3.9 - 5.3) LVPWd: 1.2 cm (0.6 - 1.1) IVSs: 1.4 cm LVIDs: 3.1 cm LVPWs: 1.2 cm LA Diam: 3.3 cm (2.7 - 3.8) LAESV Index (A-L): 22.92 ml/m Ao Diam: 2.2 cm (2.0 - 3.7) AV Cusp: 2.0 cm (1.5 - 2.6) LA Diam: 3.4 cm (2.7 - 3.8) MV EXCURSION: 16.594 mm (> 18.000) MV EF SLOPE: 102 mm/s (70 - 150) EPSS: 0.4 cm MV E Aníbal: 0.91 m/s MV DecT: 160 ms MV A Aníbal: 0.61 m/s MV E/A Ratio: 1.49 RAP: 5.00 mmHg RVSP: 28.56 mmHg FINDINGS -------- Sinus rhythm. This was a technically good study. The left ventricular size is normal. There is mild concentric left ventricular hypertrophy. Overa ll left ventricular systolic function is normal with, an EF between 55 - 60 %. The right ventricle is normal in size. Normal LA size by volume 22+/-6 ml/m2. The right atrial size is normal. The aortic valve is trileaflet, and appears structurally normal. No aortic stenosis or regurgitation. Mild mitral regurgitation is present. Mild tricuspid regurgitation present. There is no evidence of pulmonary hypertension. The right v entricular systolic pressure, as measured by Doppler, is 28.56mmHg. There is no pulmonic regurgitation present. The aortic root size is normal. There is no pericardial effusion. CONCLUSIONS -------- 1. The left ventricular size is normal. 2. There is mild concentric left ventricular hypertrophy. 3. Overall left ventricular systolic function is normal with, an EF between 55 - 60 %. 4. The aortic valve is trileaflet, and appears structurally normal. No aortic stenosis or regurgitati on. 5. Mild mitral regurgitation is present. 6. Mild tricuspid regurgitation present. 7. There is no evidence of pulmonary hypertension. 8. The right ventricular systolic pressure, as measured by Doppler, is 28.56mmHg. 9. There is no pulmonic regurgitation present. 10. The aortic root size is normal. 11. There is no pericardial effusion. KEY RINGER: Eleanor Gresham RDCS
[2017-11-20] MEDS ORDERED: KETOROLAC 30 MG/ML 1 ML VIAL IVP SCH (12:00)
--- NOTE | 2017-11-20 12:14 | P.PN ---
Progress Note - Text This is an addendum to the dictated cardiology consultation. The patient presents with presyncopal episode after standing, her symptoms were not associated with any palpitations. She has underwent a stress echocardiogram in 05/01/2017 that showed no evidence of stress-induced ischemia. She is usually active physically has no associated symptoms of chest pain, dizziness or syncope. She has no symptoms of PND, orthopnea or peripheral edema. Her physical examination is unremarkable from the cardiac standpoint. Her troponin, EKG and echocardiogram are unremarkable. The patient presents with symptoms suggestive of vasodepressive pre-syncope. I have the maneuvers that she should take including avoiding standing still for a long time, avoiding dehydration and changing position regimen. From the cardiac standpoint should be able to be discharged home today and can be followed as an outpatient to see if there is any recurrent symptoms and if so further workup will be done. Thank you for this consult we will follow with you.
--- NOTE | 2017-11-20 14:43 | P.HPIM ---
History of Present Illness H&P Date: 11/20/17 Chief Complaint: near syncope 47-year-old female who presented to the emergency room on 11/19/2017 with chief complaint of chest pain, diaphoresis, and lightheadedness. The patient states she was at work yesterday and was standing near a machine working when she began to get diaphoretic and felt lightheaded. She states she felt she was getting tunnel vision and everything got dark. She said that she felt very warm. She was also experiencing dull left-sided chest pain, but she states she does not remember exactly when it started. She states that she left work and went home and her symptoms did not resolve so she presented to the emergency room for further evaluation. In the emergency room a EKG was completed which revealed sinus rhythm with inferior and lateral Q waves. An echo gram was completed which revealed an ejection fraction of 55-60%, mild mitral regurgitation, and mild tricuspid regurgitation. Laboratory studies revealed sodium 140, potassium 4.7, BUN 16, creatinine 0.70, hemoglobin 14.5, magnesium 2.0. Troponins were negative 3. Lipid panel reveals triglycerides of 66, cholesterol 145, LDL 89, and HDL 43. Urinalysis was completed which was positive for leukocyte esterase, RBC of 7, WBC of 6, trace protein, trace ketones, and trace blood. Patient denies any urinary symptoms. She was admitted for observation under the care of Dr. Ayala. Consultations were placed to cardiology. The patient was seen and examined at the bedside. She states her symptoms have resolved and she is feeling better. She states she did have a headache earlier which has resolved at the time of examination. She denies shortness of breath. She does complain of some pain in the right knee. She states that she fell last week and she landed with her legs twisted to the side. She is anxious to be discharged home today. Review of Systems GENERAL: Patient denies fever. Denies chills. EYES: Positive for episode of "tunnel vision" and vision becoming dark yesterday which has resolved. EARS, NOSE, MOUTH, & THROAT: Denies headache. Denies sore throat. Denies ear pain. RESPIRATORY: Denies cough. Denies shortness of breath. Denies sputum production. Denies hemoptysis. CARDIOVASCULAR: Positive for episode of dull chest pain yesterday, which has resolved. Denies chest pain or pressure. Denies palpitations. Denies arrhythmias. GASTROINTESTINAL: Denies abdominal pain. Denies diarrhea. Denies constipation. Denies nausea. Denies vomiting. Denies heartburn. Denies blood in the stool. GENITOURINARY: Denies urinary frequency. Denies burning. Denies dysuria. Denies cloudy urine. Denies blood in the urine. MUSCULOSKELETAL: Positive for right knee pain. Denies myalgias. Denies joint swelling. INTEGUMENTARY: Denies pruitis. Denies rash. PSYCHIATRIC: Denies suicidal or homicial ideations. ENDOCRINE: Denies weight change. Denies polydipsia. Denies polyuria. HEMATOLOGIC: Denies bleeding disorders. Past Medical History Past Medical History: No Reported History, Osteoarthritis (OA) Additional Past Medical History / Comment(s): ABDOMINAL PAIN, stomach ulcers, back pain,. pt stated she has umbilical hernia History of Any Multi-Drug Resistant Organisms: None Reported Past Surgical History: Appendectomy, Hysterectomy, Orthopedic Surgery, Tubal Ligation Additional Past Surgical History / Comment(s): right knee, left knee, left shoulder (2002) Past Anesthesia/Blood Transfusion Reactions: No Reported Reaction Past Psychological History: No Psychological Hx Reported Smoking Status: Current every day smoker Past Alcohol Use History: None Reported Additional Past Alcohol Use History / Comment(s): SMOKES 4 CIGARETTES A DAY, STARTED SMOKING AGE 10 Past Drug Use History: None Reported - Past Family History Father Family Medical History: No Reported History Mother Family Medical History: Osteoarthritis (OA) Medications and Allergies Home Medications Medication Instructions Recorded Confirmed Type Ibuprofen [Motrin] 800 mg PO TID PRN 11/19/17 11/19/17 History Nicotine 14Mg/24Hr Patch [Habitrol] 1 patch TRANSDERM DAILY #30 patch 11/20/17 Rx Allergies Allergy/AdvReac Type Severity Reaction Status Date / Time No Known Allergies Allergy Verified 11/19/17 20:11 Physical Exam Vitals: Vital Signs Temp Pulse Pulse Pulse Pulse Resp BP 11/20/17 11:23 97.6 F 68 16 11/20/17 11:15 77 78 67 16 11/20/17 08:00 97.5 F L 67 16 11/20/17 04:00 98.7 F 77 78 73 19 11/20/17 01:46 70 19 01/10/18 01:00 97.3 F L 70 19 11/20/17 00:25 97.3 F L 70 19 11/19/17 23:43 76 18 106/61 11/19/17 22:14 68 18 101/62 11/19/17 20:32 64 18 96/54 11/19/17 19:29 98.2 F 89 18 125/77 BP BP BP Pulse Ox 11/20/17 11:23 109/79 106/64 80/48 100 11/20/17 11:15 11/20/17 08:00 105/60 87/58 99 11/20/17 04:00 114/68 111/63 96/55 98 11/20/17 01:46 11/20/17 01:00 110/57 98 11/20/17 00:25 110/57 98 11/19/17 23:43 97 11/19/17 22:14 100 11/19/17 20:32 100 11/19/17 19:29 98 Intake and Output 11/19/17 11/20/17 11/20/17 22:59 06:59 14:59 Intake Total 1060 Output Total 250 500 Balance -250 560 Intake: Intake, IV Titration 700 Amount Sodium Chloride 0.9% 1, 700 000 ml @ 100 mls/hr IV . Q10H [facility] Rx#:[id number] Oral 360 Output: Urine 250 500 Other: Voiding Method Toilet Toilet # Voids 1 1 Weight 94.801 kg 93 kg GENERAL: This is a 47-year-old female in no apparent distress at the time of examination. Pleasant and cooperative. HEENT: Head is atraumatic, normocephalic. Pupils are equal, round, and reactive to light. Sclerae anicteric. Conjunctivae are clear. Mucus membranes of the mouth are moist. Neck is supple. RESPIRATORY: Clear to ausculation. No wheezes, rales, or rhonchi. No use of accessory muscles. Patient maintaining oxygen saturation greater than 92%. No chest wall tenderness is noted on palpation or with deep breathing. CARDIOVASCULAR: Regular rate and rhythm. S1 and S2 noted. No systolic or diastolic murmur auscultated. No JVD noted. No S3 or S4 noted. GASTROINTESTINAL: No distention noted. Abdomen soft and round. Normal active bowel sounds auscultated x 4 quadrants. No pain or tenderness noted upon palpation. INTEGUMENTARY: No cyanosis. No jaundice. No rashes noted. No cellulitis noted. EXTREMITIES: 2+ peripheral pulses. No evidence of peripheral edema. No calf tenderness noted. NEUROLOGIC: Cranial nerves II-XII intact. PSYCHIATRIC: Awake, alert, and oriented X 3. Appropriate affect. Intact judgement and insight. Results CBC & Chem 7: 11/19/17 20:26 11/19/17 20:26 Labs: Abnormal Lab Results - Last 24 Hours (Table) 11/19/17 11/19/17 11/19/17 Range/Units 20:26 20:26 20:26 Plt Count 506 H (150-450) k/uL Total Creatine Kinase 169 H (30-135) U/L CK-MB (CK-2) 3.0 H* (0.0-2.4) ng/mL Urine Appearance Cloudy H (Clear) Urine Protein Trace H (Negative) Urine Ketones Trace H (Negative) Urine Blood Trace H (Negative) Ur Leukocyte Esterase Large H (Negative) Urine RBC 7 H (0-5) /hpf Urine WBC 6 H (0-5) /hpf Ur Squamous Epith Cells 19 H (0-4) /hpf Urine Bacteria Few H (None) /hpf Urine Mucus Few H (None) /hpf Microbiology - Last 24 Hours (Table) 11/19/17 20:26 Urine Culture - Preliminary Urine,Voided Thrombosis Risk Factor Assmnt - Choose All That Apply Each Factor Represents 1 point: Age 41-60 years Other Risk Factors: No Other congenital or acquired thrombophilia - If yes, enter type in comment: No Thrombosis Risk Factor Assessment Total Risk Factor Score: 1 Thrombosis Risk Factor Assessment Level: Low Risk Assessment and Plan Plan: ASSESSMENT: Symptoms of near syncope including diaphoresis and vision changes, rule out cardiac etiology Chest pain, present on admission, troponins negative 3, rule out cardiac etiology Recent fall from standing with subsequent pain to right knee Positive leukocyte esterase on urinalysis, patient denies any urinary signs or symptoms, urinary tract infection unlikely Nicotine dependence, patient is a current cigarette smoker Obesity: BMI 35.2 PLAN: -Cardiology on consult. Await further recommendations -Home meds as appropriate -Monitor labs -GI/DVT prophylaxis -Monitor vital signs and address as appropriate -Discharge planning: Patient to return home in stable -Further recommendations pending patient's course Nurse practitioner note has been reviewed by physician. Signing provider agrees with the documented findings, assessment, and plan of care.
--- NOTE | 2017-11-20 14:46 | P.DS ---
Providers Date of admission: 11/19/17 23:22 Expected date of discharge: 11/20/17 Attending physician: Chalo Ayala Consults: 11/19/17 23:19 Consult Physician Urgent Consulting Provider: Iggy Chance Consult Reason/Comments: cp Do you want consulting provider notified?: Yes Primary care physician: Chalo [facility] Course: 47-year-old female who presented to the emergency room on 11/19/2017 with chief complaint of chest pain, diaphoresis, and lightheadedness. The patient states she was at work yesterday and was standing near a machine working when she began to get diaphoretic and felt lightheaded. She states she felt she was getting tunnel vision and everything got dark. She said that she felt very warm. She was also experiencing dull left-sided chest pain, but she states she does not remember exactly when it started. She states that she left work and went home and her symptoms did not resolve so she presented to the emergency room for further evaluation. In the emergency room a EKG was completed which revealed sinus rhythm with inferior and lateral Q waves. An echo gram was completed which revealed an ejection fraction of 55-60%, mild mitral regurgitation, and mild tricuspid regurgitation. Laboratory studies revealed sodium 140, potassium 4.7, BUN 16, creatinine 0.70, hemoglobin 14.5, magnesium 2.0. Troponins were negative 3. Lipid panel reveals triglycerides of 66, cholesterol 145, LDL 89, and HDL 43. Urinalysis was completed which was positive for leukocyte esterase, RBC of 7, WBC of 6, trace protein, trace ketones, and trace blood. Patient denies any urinary symptoms. She was admitted for observation under the care of Dr. Ayala. Consultations were placed to cardiology. The patient was seen and examined at the bedside. She states her symptoms have resolved and she is feeling better. She states she did have a headache earlier which has resolved at the time of examination. She denies shortness of breath. She does complain of some pain in the right knee. She states that she fell last week and she landed with her legs twisted to the side. The patient was deemed stable for discharge per Dr. Ayala. A prescription for a nicotine patch was sent to the patient preferred pharmacy. Dr. Ayala advised the patient to make an appointment with her orthopedic physician regarding her right knee pain. She has been cleared for discharge from a cardiology standpoint. Discharge diagnosis Symptoms of near syncope including diaphoresis and vision changes, suspect vasodepressive presyncope per cardiology Chest pain, present on admission, troponins negative 3, suspect vasodepressive presyncope per cardiology Recent fall from standing with subsequent pain to right knee, patient to follow up outpatient Positive leukocyte esterase on urinalysis, patient denies any urinary signs or symptoms, urinary tract infection unlikely Nicotine dependence, patient is a current cigarette smoker Obesity: BMI 35.2 Nurse practitioner note has been reviewed by physician. Signing provider agrees with the documented findings, assessment, and plan of care. Patient Condition at Discharge: Stable Plan - Discharge Summary Discharge Rx Participant: No New Discharge Prescriptions: New Nicotine 14Mg/24Hr Patch [Habitrol] 1 patch TRANSDERM DAILY #30 patch Continue Ibuprofen [Motrin] 800 mg PO TID PRN PRN Reason: Pain Discharge Medication List Ibuprofen [Motrin] 800 mg PO TID PRN 11/19/17 [History] Nicotine 14Mg/24Hr Patch [Habitrol] 1 patch TRANSDERM DAILY #30 patch 11/20/17 [ Rx] Follow up Appointment(s)/Referral(s): Anson Noriega MD [STAFF PHYSICIAN] - 12/20/17 4:15 pm Chalo Ayala MD [Primary Care Provider] - 11/26/17 2:00 pm Patient Instructions/Handouts: Syncope (DC) Activity/Diet/Wound Care/Special Instructions: Patient may return to work on Saturday, November 22, 2017 Discharge Disposition: HOME SELF-CARE
== END 2017-11-20 14:49 | disposition home or self-care (01) ==
LOC: EC 18:46 → 6SEL 23:22
PROVIDERS: ADMIT Family Medicine; ATTEND Family Medicine
DX: R55 Syncope and collapse (principal); R07.89 Other chest pain; R53.83 Other fatigue; R61 Generalized hyperhidrosis; R51 Headache; I10 Essential (primary) hypertension; M25.561 Pain in right knee; W18.30XA Fall on same level, unspecified, initial encounter; F17.210 Nicotine dependence, cigarettes, uncomplicated; M19.90 Unspecified osteoarthritis, unspecified site; Z68.35 Body mass index [BMI] 35.0-35.9, adult; E66.9 Obesity, unspecified; D72.829 Elevated white blood cell count, unspecified; Z87.11 Personal history of peptic ulcer disease
CPT/HCPCS: 99285; 96374; 96361 ×4; 96376; 96372; 96375; 36415; 93005; 93306; 85379; 80061; 80053; 82550 ×2; 82553 ×2; 83735; 84100; 84484 ×2; 85025; 85610; 85730; 81001; 87086; G0378 ×2; J2405; J1650; J1885; J2274

== ENCOUNTER → 2018-01-01 | Outpatient (CLI) | payer OTHER ==
--- NOTE | 2018-01-01 21:34 | MR ---
EXAMINATION TYPE: MR knee RT wo con DATE OF EXAM: 01/01/2018 COMPARISON: Outside radiograph 12/02/2019 HISTORY: 47-year-old female with right knee pain TECHNIQUE: Multiplanar, multisequence imaging of the right knee is performed without IV contrast. FINDINGS: ACL, PCL, and LCL complex are intact. The posterior horn of the medial meniscus is markedly diminutive in extensively torn. There is extrus ion of the meniscal body with degenerative signal throughout. Moderate to severe cartilage loss along the mid peripheral aspect of the medial compartment with marginal spurring. There is some degenerative signal in the anterior horn of the lateral meniscus. Presence of a small 7 mm parameniscal cyst suggests a tiny meniscal tear near the anterior root of the lateral meniscus. T here is mild cartilage irregularity along the mid weightbearing aspect of the lateral compartment wit h marginal spurring. Moderate to severe focal areas of irregular cartilage loss is present in the patellofemoral compartme nt especially along the trochlear groove and both medial and lateral patellar facets. Marginal spurri ng is present. Extensor mechanism is intact. There is a moderate knee joint effusion without significant Quinonez's cyst. Small ganglion at the origi n of the medial and lateral gastric mediastinum measuring up to 1 cm. Normal popliteal artery anatomy and muscle bulk. No suspicious bone marrow replacement. There is mild muscular edema involving the gastrocnemius which could be reactive to altered biomechan ics or reflect mild muscle strain. IMPRESSION: 1. The posterior horn of the medial meniscus is extensively torn and the body extruded. Moderate over all medial compartment osteoarthrosis but with more severe cartilage loss along the mid peripheral as pect. 2. A 7 mm parameniscal cyst suggests a small tear of the lateral meniscus near the anterior root. 3. Moderate overall patellofemoral compartmental osteoarthrosis. 4. Moderate knee joint effusion without Quinonez's cyst. 5. Increased signal within the gastrocnemius could represent reactive edema secondary to altered biom echanics or mild muscle strain.
== END | disposition home or self-care (01) ==
LOC: RADMRIMAIN 13:12
PROVIDERS: ATTEND Orthopaedic Surgery
DX: S83.241A Other tear of medial meniscus, current injury, right knee, initial encounter (principal); M17.11 Unilateral primary osteoarthritis, right knee

== ENCOUNTER → 2018-01-01 | Outpatient (CLI) | payer OTHER ==
[2018-01-01 12:47] LABS: HCT 39.7 % (34.0-46.0); HGB 12.5 gm/dL (11.4-16.0); MCH 30.2 pg (25.0-35.0); MCHC 31.5 g/dL (31.0-37.0); MCV 95.9 fL (80.0-100.0); Mean Platelet Volume 6.2; Platelet Count 493 k/uL (150-450); RBC 4.14 m/uL (3.80-5.40)
[2018-01-01 13:29] LABS: Anion Gap 7 mmol/L; Blood Urea Nitrogen 19 mg/dL (7-17); Carbon Dioxide 34 mmol/L (22-30); Chloride 99 mmol/L (98-107); Potassium 4.5 mmol/L (3.5-5.1); Sodium 140 mmol/L (137-145)
== END | disposition home or self-care (01) ==
LOC: LABPAT 12:07
PROVIDERS: ATTEND Internal Medicine Interventional Cardiology
DX: Z01.812 Encounter for preprocedural laboratory examination (principal); I47.2 Ventricular tachycardia
CPT/HCPCS: 36415; 80051; 82565; 84520; 85027

== ENCOUNTER 2018-01-09 06:23 | Day surgery (SDC) | payer OTHER ==
[2018-01-07 12:26] VITALS: BMI 37.0
[~2018-01-09 06:23] MED LIST changes: +ALPRAZolam 0.25 MG TAB PO PRN; +ALPRAZolam 0.5 MG TAB PO PRN; +ASPIRIN 325 MG TAB PO STA; +ATORVASTATIN 80 MG TAB PO STA; -LACTATED RINGERS 1,000 ML IV ONE; +NITROGLYCERIN SL TABS 0.4 MG TAB SUBLINGUAL PRN; +SODIUM CHLORIDE 0.9% 1,000 ML in EMPTY BAG 1 BAG IV ONE
[2018-01-09] MEDS ORDERED: LIDOCAINE 2% INJ 20 MG/ML (20 ML MDV) ONE (07:09)
[2018-01-09] MEDS ORDERED: VERAPAMIL 2.5 MG/ML 2 ML AMP ONE (07:09)
[2018-01-09] MEDS ORDERED: diphenhydrAMINE 50 MG/ML 1 ML VIAL ONE (07:10)
[2018-01-09] MEDS ORDERED: fentaNYL (PF) 50 MCG/ML 2 ML AMP ONE (07:10)
[2018-01-09] MEDS ORDERED: HEPARIN SODIUM 1,000 UN/ML (10ML VL) ONE (07:29)
[2018-01-09] MEDS ORDERED: MIDAZOLAM 2 MG/2 ML VIAL ONE ×2 (07:53→08:08)
[2018-01-09] MEDS ORDERED: LIDOCAINE 2% INJ 20 MG/ML SQ ONE (07:54)
[2018-01-09] MEDS ORDERED: MIDAZOLAM 2 MG/2 ML VIAL IVP ONE ×2 (07:56→08:00)
[2018-01-09] MEDS ORDERED: fentaNYL (PF) 50 MCG/ML 2 ML AMP IVP ONE (07:56)
[2018-01-09] MEDS ORDERED: diphenhydrAMINE 50 MG/ML 1 ML VIAL IVP ONE (07:56)
[2018-01-09] MEDS: VERAPAMIL SYRINGE (5 MG/10 ML) INTRAARTER ONE ×2 (07:57→08:07)
[2018-01-09] MEDS ORDERED: MIDAZOLAM 2 MG/2 ML VIAL IV ONE (08:09)
[2018-01-09] MEDS ORDERED: IOHEXOL 350 MG/ML 125ML BOTTLE INJ ONE (08:11)
[2018-01-09] MEDS ORDERED: RX INFO: IV CONTRAST WAS GIVEN 1 EACH MISC MISCELLANE PRN (08:37)
[2018-01-09] MEDS ORDERED: HYDROcodone/APAP 5-325MG 1 EACH TAB PO PRN (08:38)
[2018-01-09 08:41] VITALS: RESP 16
[2018-01-09] MEDS ORDERED: SODIUM CHLORIDE 0.9% 1,000 ML IV SCH (08:45)
[2018-01-09] MEDS ORDERED: FLUDROCORTISONE 0.1 MG TAB PO SCH (09:00)
[2018-01-09] MEDS ORDERED: METOPROLOL TARTRATE 25 MG TAB PO SCH (09:00)
[2018-01-09] MEDS ORDERED: NON-FORMULARY DRUG (Aspirin [Adult Low Dose Aspirin Ec] 81 MG) PO SCH (09:00)
--- NOTE | 2018-01-09 09:16 | CC ---
CARDIAC CATHETERIZATION REPORT Mrs. Rosa a 47-year-old female with a known history of chronic tobacco use who presented twice to the hospital with symptoms of dizziness and one episode of syncope. She underwent an event monitor that showed a run of nonsustained ventricular tachycardia. Because of that, recommendation was made regarding cardiac catheterization. The procedure as well as risks and complications were discussed with the patient who is in full understanding and agreement. PROCEDURE: Patient was brought to medical laboratory technologist in a fasting semi-sedated state. After receiving fentanyl and Benadryl and achieving moderate conscious sedated state, using Xylocaine anesthesia and Seldinger technique, a 6-Korean sheath was introduced in right radial artery. Selective right and left angiography was performed using 5-Korean 3.5 bend right and left Abimael catheter. Multiple views of the coronary arteries including hemiaxial views were obtained. Following that, catheter and sheath were removed. Hemostasis was obtained with deployment of TR band. There was no immediate complication. Patient was returned to her room in stable condition. Of note, the patient received 5000 units of intravenous heparin as well as intra-arterial verapamil. FINDINGS: LEFT MAIN: This is a short size vessel bifurcating left circumflex and left anterior descending artery. Left main coronary artery is without any obstructive disease. LEFT ANTERIOR DESCENDING ARTERY: This is a large-sized vessel reaching to the apex with a wraparound apex segment giving rise to a large diagonal branch. The left anterior descending artery as well as branches have no evidence of obstructive coronary artery disease. LEFT CIRCUMFLEX: This is a nondominant vessel giving rise to a large obtuse marginal branch. The left circumflex as well as branches have no evidence of obstructive coronary artery disease. RIGHT CORONARY ARTERY: This is a large dominant vessel bifurcating distally PDA and posterolateral segment and branches. The right coronary artery as well as branches have no evidence of obstructive coronary artery disease. LEFT VENTRICULOGRAM: Left ventriculogram is not performed next. CONCLUSION: Normal coronary arteries. RECOMMENDATION: In view of finding anatomy, I recommend continuing medical therapy. The patient will be evaluated regarding the issue of her ventricular tachycardia and depending on the results of testing, further recommendation will be made. Those findings and recommendation were discussed with the patient and her family who are in full understanding and agreement. The importance of smoking cessation was discussed with her. DURATION OF PROCEDURE: 22 minutes. MMODL / IJN: [id number] /
--- NOTE | 2018-01-09 09:18 | LTR ---
January 09, 2018 Re: Narda Rosa Dear Dr. Ayala: I had the opportunity to perform cardiac catheterization on Mrs. Rosa at [facility] on the 09 of January and a full copy of the procedure note will be forwarded to you. In brief, she was found to have no evidence of obstructive coronary artery disease. At this time, I would recommend to continue medical therapy and further evaluate the etiology of her ventricle arrhythmia. I will keep you updated on her progress. Thank you again for allowing me the opportunity to participate in her care. Please feel free to call for any questions. Sincerely yours, MD BRANDON Daniels / ALEXIN: [id number] /
[2018-01-09] MEDS ORDERED: ACETAMINOPHEN TAB 325 MG TAB ONE (10:00)
[2018-01-09 12:20] VITALS: BP 80/40; PULSE 76
== END 2018-01-09 13:50 | disposition home or self-care (01) ==
LOC: CATHCVL 06:23
PROVIDERS: ATTEND Internal Medicine Interventional Cardiology
DX: I47.2 Ventricular tachycardia (principal); R55 Syncope and collapse; I49.3 Ventricular premature depolarization; M19.90 Unspecified osteoarthritis, unspecified site; F17.200 Nicotine dependence, unspecified, uncomplicated; Z79.82 Long term (current) use of aspirin; Z79.891 Long term (current) use of opiate analgesic; Z79.899 Other long term (current) drug therapy
CPT/HCPCS: 93458; C1894; C1769; J2001; J2250; J1200; J3010; J1644; Q9967

== ENCOUNTER → 2018-01-24 | Day surgery (SDC) | payer OTHER ==
[2018-01-22 14:45] VITALS: BMI 38.2
--- NOTE | 2018-01-23 09:24 | HP ---
HISTORY AND PHYSICAL CHIEF COMPLAINT: Right knee pain. 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 She slipped going down some stairs. She notes persistent pain, swelling, and giving way ever since. She has been off work because of this. She has been taking [place] and Naprosyn. PAST MEDICAL HISTORY: Past medical history is significant is negative. She recently underwent a cardiac catheterization. SURGICAL HISTORY: Surgical history is significant for hysterectomy, bilateral knee arthroscopy, laparoscopy, left shoulder surgery and appendectomy. CURRENT ALLERGIES: Ibuprofen. ALLERGIES: She denies drug allergies. FAMILY HISTORY: Family history is significant for cancer. SOCIAL HISTORY: Significant for 1 pack per week tobacco use. REVIEW OF SYSTEMS: Sixteen-point review of systems otherwise reviewed and is noncontributory. PHYSICAL EXAMINATION: On examination, the patient is approximately 5 feet, 4 inches, 209 pounds of endomorphic habitus. HEENT exam is nonfocal. Neck is supple. She has painless passive motion of her right hip. Straight leg raise is negative. Active motion right knee -12 to 105 degrees of flexion. She has a moderate effusion. She is tender about the medial joint line. Collaterals are stable, Erica's negative, Conrad's elicits medial pain. Her distal neurovascular exam appears intact in the right lower extremity. MRI report of the right knee from 01/01/2018 shows a posterior medial meniscal tear along with medial compartment degenerative changes. IMPRESSION: 1. Right knee internal derangement with symptomatic medial meniscal tear. 2. Right knee medial compartment osteoarthrosis. 3. Increased body mass index. RECOMMENDATIONS: I talked to the patient at length regarding her treatment options and condition. At this point, she is having persistent pain and mechanical symptoms despite conservative treatment with medications, rest, and an injection. At this point, she opts to proceed with surgery. We will plan to proceed with arthroscopic evaluation with possible partial medial meniscectomy and medial femoral chondrectomy. Risks and benefits were discussed at length in layman's terms. MMODL / IJN: [id number] / MTDD
[~2018-01-24] MED LIST changes: -ALPRAZolam 0.25 MG TAB PO PRN; -ALPRAZolam 0.5 MG TAB PO PRN; -ASPIRIN 325 MG TAB PO STA; -ATORVASTATIN 80 MG TAB PO STA; +DEXAMETHASONE SOD PHOSPHATE 10 MG/ML 1 ML VIAL IV ONE; +EPINEPHrine (PF) 1 ML in SODIUM CHLORIDE 0.9% IRRIGATIO 3,000 ML IRRIGATION ONE; +HYDROcodone/APAP 5-325MG 1 EACH TAB PO ONE; +KETOROLAC 30 MG/ML 1 ML VIAL ONE; +LACTATED RINGERS 1,000 ML IV ONE; +LIDOCAINE 1% 20 ML VIAL (10MG/ML) FOR IV START INTRADERMA PRN; +LIDOCAINE 1% INJ 10MG/ML (20 ML MDV) ONE; +MIDAZOLAM 2 MG/2 ML VIAL IV PRN; +MIDAZOLAM 2 MG/2 ML VIAL ONE; +MORPHINE SULFATE 4 MG/ML SYRINGE IV PRN; -NITROGLYCERIN SL TABS 0.4 MG TAB SUBLINGUAL PRN; +ONDANSETRON 4 MG/2 ML VIAL IVP ONE; +PHENYLEPHRINE-0.9% NACL SYG 1 MG/10 ML SYRINGE ONE; +PROPOFOL 10 MG/ML 20 ML VIAL IV ONE; +SCOPOLAMINE 1.5MG/72HR PATCH TRANSDERM ONE; -SODIUM CHLORIDE 0.9% 1,000 ML in EMPTY BAG 1 BAG IV ONE; +SUCCINYLCHOLINE CHLORIDE 100 MG/5 ML SYR IV ONE; +ceFAZolin IN SWFI 2 GM/20 ML SYRINGE IVP ONE; +fentaNYL (PF) 50 MCG/ML 2 ML AMP ONE
[2018-01-24 09:18] LABS: Glucose,Whole Blood 95 mg/dL (75-99)
--- NOTE | 2018-01-24 11:34 | P.OP ---
Date of Procedure: 01/24/18 Preoperative Diagnosis: Right knee internal derangement Postoperative Diagnosis: Right knee posterior medial meniscal tear/grade 3 chondral injury distal lateral aspect medial femoral condyle/grade 2 chondral injury distal central lateral femoral condyle/grade 3 chondral injuries involving the femoral trochlea and medial patella facet Procedure(s) Performed: Right knee arthroscopic partial medial meniscectomy/medial femoral chondrectomy/ lateral femoral chondrectomy/patellar chondroplasty Anesthesia: GETA Surgeon: Lionel Xie Estimated Blood Loss (ml): 10 Pathology: none sent Condition: stable Disposition: PACU Indications for Procedure: The patient's a 47-year-old female presents with progressive right knee pain after a previous injury with persistent pain and mechanical symptoms despite conservative measures. A discussion of the risks and benefits of operative intervention versus continued conservative measures was made with the patient. She opted to proceed with surgery. Operative risks to include infection, neurovascular injury, development of blood clots, possible incomplete resolution of symptoms, possible worsening symptoms and need for subsequent procedures was discussed. Informed consent was obtained. Operative Findings: As below Description of Procedure: The patient was brought to the operating room, and after induction of general anesthesia examined the right knee. Collaterals were stable, Erica was negative, and posterior drawer was negative. The right lower extremity was prepped and draped in normal fashion. A superior lateral portal was made through a 3 mm skin incision superior and lateral to the patella. This was used for outflow. A moderate effusion was encountered. A lateral portal was made through a 5 mm vertical skin incision lateral to the patella tendon above the joint line. Diagnostic arthroscopy was performed. A medial portals made medial to the patella tendon above the joint line. On inspection of the medial compartment, and oblique meniscal tear at the junction of the posterior middle one third was noted. This was debrided back to stable base with straight baskets and a motorized shaver. Prior previous partial posterior meniscectomy was noted. Grade 3/4 chondral changes were noted diffusely. There was a loose chondral fragment involving the distal central portion of the femoral condyle. This was debrided back to stable base with a motorized shaver and ablator. On inspection of the notch, the anterior cruciate ligament appeared to be intact. On inspection the lateral compartment, the lateral meniscus was stable and intact. A grade 2 chondral injury was noted involving the central lateral portion of the lateral femoral condyle. Loose chondral fragment was taken back to stable base with the ablator. On inspection patellofemoral articulation, grade 3/4 chondral changes were noted diffusely. There were several loose chondral fragments in the femoral trochlea and the medial patella facet debrided back to a stable base with the ablator and shaver. The gutters were clear debris. The knee was thoroughly irrigated. The portals were closed with Steri-Strips. A sterile dressing was applied in addition to a compression stocking. The patient was then awoken from general anesthesia and transferred to recovery room in good condition. Blood loss was estimated 10 mL. No complications were incurred.
[2018-01-24 11:40] VITALS: TEMP 97.8
[2018-01-24] MEDS: MEPERIDINE 50 MG/ML SYRINGE IVP ONE ×2 (11:48→12:01)
[2018-01-24 13:44] VITALS: RESP 18
[2018-01-24 14:00] VITALS: BP 104/64; PULSE 66
== END | disposition home or self-care (01) ==
LOC: OR 08:39
PROVIDERS: ATTEND Orthopaedic Surgery
DX: S83.241A Other tear of medial meniscus, current injury, right knee, initial encounter (principal); M94.261 Chondromalacia, right knee; W10.9XXA Fall (on) (from) unspecified stairs and steps, initial encounter; I10 Essential (primary) hypertension; I95.1 Orthostatic hypotension; F17.210 Nicotine dependence, cigarettes, uncomplicated; K21.9 Gastro-esophageal reflux disease without esophagitis; Z88.8 Allergy status to other drugs, medicaments and biological substances; Z79.899 Other long term (current) drug therapy
CPT/HCPCS: 81025; 29881; J2250; J1100; J2175; J2405; J0171; J2001; J3010; J1885; J2370; J0330; J2704; J0690

== ENCOUNTER → 2018-03-14 | Outpatient (CLI) | payer OTHER ==
[2018-03-14 13:26] LABS: T4, Free (Free Thyroxine) 0.58 ng/dL (0.78-2.19)
[2018-03-14 17:46] LABS: Thyroid Peroxidase Antibodies 409.4 U/mL (0.0-60.0)
[2018-03-14 18:43] LABS: Thyroglobulin 5.69 ng/mL (1.60-59.90)
== END | disposition home or self-care (01) ==
LOC: LABWHC1 11:52
PROVIDERS: ATTEND Family Medicine
DX: J02.9 Acute pharyngitis, unspecified (principal); R60.0 Localized edema; R94.6 Abnormal results of thyroid function studies
CPT/HCPCS: 36415; 84432; 84439; 84443; 84445; 84481; 86376; 86800

== ENCOUNTER → 2018-03-31 | Outpatient (CLI) | payer OTHER ==
--- NOTE | 2018-03-31 16:55 | US ---
EXAMINATION TYPE: US thyroid st tissue head/neck DATE OF EXAM: 03/31/2018 COMPARISON: NONE CLINICAL HISTORY: R94.6 Abnormal Results of Thyroid Studies. GLAND SIZE: Right Lobe: 5.4 x 1.9 x 1.9 cm Overall Parenchyma: heterogenous Left Lobe: 4.7 x 1.6 x 1.6 cm Overall Parenchyma: heterogeneous Isthmus Thickness: 0.6 cm NODULES RIGHT: # of nodules measured on right: 0 LEFT: # of nodules measured on left: 0 ISTHMUS: # of nodules measured in the isthmus: 0 Bilateral neck scanned, Nodes noted bilaterally. Gland is diffusely heterogeneous bilaterally IMPRESSION: Thyroid gland is relatively large. No discrete mass or dominant mass seen.
== END | disposition home or self-care (01) ==
LOC: RADUSWWP 16:19
PROVIDERS: ATTEND Family Medicine
DX: R94.6 Abnormal results of thyroid function studies (principal)
CPT/HCPCS: 76536

== ENCOUNTER → 2018-04-29 | Outpatient (CLI) | payer OTHER ==
[2018-04-29 10:21] LABS: ALT 52 U/L (9-52); AST 33 U/L (14-36); Albumin 4.3 g/dL (3.5-5.0); Alkaline Phosphatase 83 U/L (38-126); Blood Urea Nitrogen 15 mg/dL (7-17); Calcium 9.6 mg/dL (8.4-10.2); Chloride 100 mmol/L (98-107); Glucose 115 mg/dL (74-99); Potassium 4.5 mmol/L (3.5-5.1); Sodium 140 mmol/L (137-145); Total Bilirubin 0.3 mg/dL (0.2-1.3); Total Protein 7.2 g/dL (6.3-8.2)
[2018-04-29 10:22] LABS: Anion Gap 10 mmol/L; Carbon Dioxide 30 mmol/L (22-30)
[2018-04-29 10:40] LABS: T4, Free (Free Thyroxine) 0.45 ng/dL (0.78-2.19)
[2018-04-29 16:25] LABS: Thyroid Peroxidase Antibodies 904.2 U/mL (0.0-60.0)
[2018-04-29 18:12] LABS: ACTH 38.8 pg/mL (0.00-45.99)
== END | disposition home or self-care (01) ==
LOC: LABWHC1 08:16
PROVIDERS: ATTEND Internal Medicine Endocrinology, Diabetes & Metabolism
DX: E04.9 Nontoxic goiter, unspecified (principal); R55 Syncope and collapse; R53.83 Other fatigue
CPT/HCPCS: 36415; 80053; 82024; 82533; 82607; 84439; 84443; 84481; 86376

== ENCOUNTER → 2018-06-12 | Outpatient (CLI) | payer OTHER | END | disposition home or self-care (01) | LOC: LABWHC1 10:57 | PROVIDERS: ATTEND Internal Medicine Endocrinology, Diabetes & Metabolism | DX: E06.3 Autoimmune thyroiditis (principal) | CPT/HCPCS: 36415; 84443 ==

== ENCOUNTER 2018-08-23 22:42 | Emergency (ER) | payer SELFPAY ==
[2018-08-23] MEDS ORDERED: SODIUM CHLORIDE 0.9% 1,000 ML IV STA (22:57)
[2018-08-23] MEDS ORDERED: ONDANSETRON 4 MG/2 ML VIAL IVP STA (22:57)
--- NOTE | 2018-08-23 23:00 | ED ---
General Adult HPI - General Source: patient, family, RN notes reviewed Mode of arrival: ambulatory Limitations: no limitations <Miguel Angel Webb - Last Filed: 08/24/18 00:54> <Priscilla Goldstein - Last Filed: 08/24/18 01:03> - General Chief complaint: Abdominal Pain Stated complaint: ABD PAIN Time Seen by Provider: 08/23/18 22:51 - History of Present Illness Initial comments: Patient 47-year-old female presented to the emergency room today with chief complaint of right upper quadrant pain over the last week. Patient does admit to pain that is worse after eating. She does admit that today she had potato along with some pork loin and pain has been constant since. She describes it as sharp pain located right upper quadrant. Patient denies nausea vomiting but does admit to some "pale" stools over the last few days. Patient denies any other complaints or symptoms. Patient denies any recent fever, chills, shortness of breath, chest pain, back pain, nausea or vomiting, numbness or tingling, headaches or visual changes, or any other complaints. (Miguel Angel Webb) - Related Data Home Medications Medication Instructions Recorded Confirmed Aspirin [Adult Low Dose Aspirin EC] 81 mg PO DAILY 01/07/18 01/22/18 HYDROcodone/APAP 5-325MG [[place] 1 tab PO Q6HR PRN 01/07/18 01/22/18 5-325] Metoprolol Tartrate [Lopressor] 25 mg PO BID 01/07/18 01/22/18 Naproxen Sodium 550 mg PO DAILY 01/22/18 01/22/18 Previous Rx's Medication Instructions Recorded Fludrocortisone [Florinef] 0.1 mg PO DAILY #30 tablet 12/06/17 Hydrocodone/Acetaminophen [[place] 1 each PO Q6HR PRN #20 tab 01/24/18 5-325] Ondansetron Odt [Zofran ODT] 4 mg PO Q8HR PRN #20 tab 08/24/18 Allergies Allergy/AdvReac Type Severity Reaction Status Date / Time No Known Allergies Allergy Verified 08/23/18 22:49 Review of Systems ROS Other: All systems not noted in ROS Statement are negative. <Miguel Angel Webb - Last Filed: 08/24/18 00:54> ROS Other: All systems not noted in ROS Statement are negative. <Priscilla Goldstein P - Last Filed: 08/24/18 01:03> ROS Statement: Those systems with pertinent positive or pertinent negative responses have been documented in the HPI. Past Medical History Past Medical History: Hypertension, Osteoarthritis (OA) Additional Past Medical History / Comment(s): ABDOMINAL PAIN, stomach ulcers, back pain,. pt stated she has umbilical hernia History of Any Multi-Drug Resistant Organisms: None Reported Past Surgical History: Appendectomy, Heart Catheterization, Hysterectomy, Orthopedic Surgery, Tubal Ligation Additional Past Surgical History / Comment(s): right knee SCOPE, left knee SCOPE , left shoulder REPAIR (2002) Past Anesthesia/Blood Transfusion Reactions: No Reported Reaction Past Psychological History: No Psychological Hx Reported Smoking Status: Former smoker Past Alcohol Use History: Occasional Past Drug Use History: None Reported - Past Family History Father Family Medical History: No Reported History Mother Family Medical History: Osteoarthritis (OA) <Miguel Angel Webb - Last Filed: 08/24/18 00:54> General Exam Limitations: no limitations <Miguel Angel Webb - Last Filed: 08/24/18 00:54> <Priscilla Goldstein P - Last Filed: 08/24/18 01:03> - General Exam Comments Initial Comments: General: The patient is awake and alert, in no distress, and does not appear acutely ill. Eye: Pupils are equal, round and reactive to light. Extra-ocular movements are intact. No nystagmus. There is normal conjunctiva bilaterally. No signs of icterus. Ears, nose, mouth and throat: There are moist mucous membranes and no oral lesions. Neck: The neck is supple, there is no tenderness or JVD. Cardiovascular: There is a regular rate and rhythm. No murmur, rub or gallop is appreciated. Respiratory: Lungs are clear to auscultation, respirations are non-labored, breath sounds are equal. No wheezes, stridor, rales, or rhonchi. Gastrointestinal: Abdomen soft on palpation. Patient does have tenderness right upper quadrant. No rebound, guarding or CVA tenderness. Musculoskeletal: Normal ROM, no tenderness. Sensation intact. Strength 5/5. Pulses equal bilaterally 2+. Neurological: A&O x 3. CN II-XII intact, There are no obvious motor or sensory deficits. Coordination appears grossly intact. Speech is normal. Skin: Skin is warm and dry and no rashes or lesions are noted. Psychiatric: Cooperative, appropriate mood & affect, normal judgment. (Miguel Angel Webb) Vital Signs 08/23/18 22:45 Temperature 98.4 F Pulse Rate 93 Respiratory 20 Rate Blood Pressure 129/86 O2 Sat by Pulse 99 Oximetry EKG Findings - EKG Comments: EKG Findings:: EKG performed at 2329: Shows normal sinus rhythm with occasional PVC at 77 bpm. IL interval 172. QRS 76. QT/QTc is 416/470. No acute ST changes. <Miguel Angel Webb - Last Filed: 08/24/18 00:54> Medical Decision Making - Lab Data Result diagrams: 08/23/18 23:20 08/23/18 23:20 <Miguel Angel Webb - Last Filed: 08/24/18 00:54> - Lab Data Result diagrams: 08/23/18 23:20 08/23/18 23:20 <Priscilla Goldstein - Last Filed: 08/24/18 01:03> - Medical Decision Making Patient reexamined at this time and show no signs of stress she is resting comfortable. Ultrasound was reviewed shows no evidence of cholecystitis. No cholelithiasis. Common bile duct within normal limits. Patient's labs been reviewed are unremarkable. Has normal sinus rhythm. These results were discussed with the patient in detail. Patient is advised follow-up with her surgeon she has seen Dr. Gonzalez in the past. She is advised to stay away from fatty greasy foods. She is advised return to emergency room if symptoms increase or worsen or for any other concerns. (Miguel Angel Webb) I was available for consultation in the emergency department. The history and physical exam were done by the midlevel provider. I was consulted for this patient's care. I reviewed the case with the midlevel provider and based on their presentation of the patient, I agree with the assessment, medical decision making and plan of care as documented. (Priscilla Goldstein) - Lab Data Lab Results 08/23/18 08/23/18 08/23/18 Range/Units 23:20 23:20 23:20 WBC 9.0 (3.8-10.6) k/uL RBC 4.62 (3.80-5.40) m/uL Hgb 13.5 (11.4-16.0) gm/dL Hct 41.7 (34.0-46.0) % MCV 90.3 (80.0-100.0) fL MCH 29.4 (25.0-35.0) pg MCHC 32.5 (31.0-37.0) g/dL RDW 12.4 (11.5-15.5) % Plt Count 474 H (150-450) k/uL Neutrophils % (Manual) 66 % Lymphocytes % (Manual) 27 % Monocytes % (Manual) 6 % Eosinophils % (Manual) 1 % Neutrophils # (Manual) 5.94 (1.3-7.7) k/uL Lymphocytes # (Manual) 2.43 (1.0-4.8) k/uL Monocytes # (Manual) 0.54 (0-1.0) k/uL Eosinophils # (Manual) 0.09 (0-0.7) k/uL Nucleated RBCs 0 (0-0) /100 WBC Manual Slide Review Performed Sodium 139 (137-145) mmol/L Potassium 3.5 (3.5-5.1) mmol/L Chloride 101 (98-107) mmol/L Carbon Dioxide 29 (22-30) mmol/L Anion Gap 9 mmol/L BUN 17 (7-17) mg/dL Creatinine 0.73 (0.52-1.04) mg/dL Est GFR (CKD-EPI)AfAm >90 (>60 ml/min/1.73 sqM) Est GFR (CKD-EPI)NonAf >90 (>60 ml/min/1.73 sqM) Glucose 91 (74-99) mg/dL Calcium 9.7 (8.4-10.2) mg/dL Total Bilirubin 0.3 (0.2-1.3) mg/dL AST 27 (14-36) U/L ALT 31 (9-52) U/L Alkaline Phosphatase 82 (38-126) U/L Total Creatine Kinase 213 H (30-135) U/L CK-MB (CK-2) 2.9 H (0.0-2.4) ng/mL CK-MB (CK-2) Rel Index 1.4 Troponin I <0.012 (0.000-0.034) ng/mL Total Protein 7.4 (6.3-8.2) g/dL Albumin 4.3 (3.5-5.0) g/dL Amylase 52 (30-110) U/L Lipase 115 (23-300) U/L Urine Color Urine Appearance (Clear) Urine pH (5.0-8.0) Ur Specific [place] (1.001-1.035) Urine Protein (Negative) Urine Glucose (UA) (Negative) Urine Ketones (Negative) Urine Blood (Negative) Urine Nitrite (Negative) Urine Bilirubin (Negative) Urine Urobilinogen (<2.0) mg/dL Ur Leukocyte Esterase (Negative) Urine RBC (0-5) /hpf Urine WBC (0-5) /hpf Ur Squamous Epith Cells (0-4) /hpf Urine Mucus (None) /hpf 08/23/18 Range/Units 23:29 WBC (3.8-10.6) k/uL RBC (3.80-5.40) m/uL Hgb (11.4-16.0) gm/dL Hct (34.0-46.0) % MCV (80.0-100.0) fL MCH (25.0-35.0) pg MCHC (31.0-37.0) g/dL RDW (11.5-15.5) % Plt Count (150-450) k/uL Neutrophils % (Manual) % Lymphocytes % (Manual) % Monocytes % (Manual) % Eosinophils % (Manual) % Neutrophils # (Manual) (1.3-7.7) k/uL Lymphocytes # (Manual) (1.0-4.8) k/uL Monocytes # (Manual) (0-1.0) k/uL Eosinophils # (Manual) (0-0.7) k/uL Nucleated RBCs (0-0) /100 WBC Manual Slide Review Sodium (137-145) mmol/L Potassium (3.5-5.1) mmol/L Chloride (98-107) mmol/L Carbon Dioxide (22-30) mmol/L Anion Gap mmol/L BUN (7-17) mg/dL Creatinine (0.52-1.04) mg/dL Est GFR (CKD-EPI)AfAm (>60 ml/min/1.73 sqM) Est GFR (CKD-EPI)NonAf (>60 ml/min/1.73 sqM) Glucose (74-99) mg/dL Calcium (8.4-10.2) mg/dL Total Bilirubin (0.2-1.3) mg/dL AST (14-36) U/L ALT (9-52) U/L Alkaline Phosphatase (38-126) U/L Total Creatine Kinase (30-135) U/L CK-MB (CK-2) (0.0-2.4) ng/mL CK-MB (CK-2) Rel Index Troponin I (0.000-0.034) ng/mL Total Protein (6.3-8.2) g/dL Albumin (3.5-5.0) g/dL Amylase (30-110) U/L Lipase (23-300) U/L Urine Color Yellow Urine Appearance Clear (Clear) Urine pH 5.0 (5.0-8.0) Ur Specific [place] 1.017 (1.001-1.035) Urine Protein Negative (Negative) Urine Glucose (UA) Negative (Negative) Urine Ketones Negative (Negative) Urine Blood Negative (Negative) Urine Nitrite Negative (Negative) Urine Bilirubin Negative (Negative) Urine Urobilinogen <2.0 (<2.0) mg/dL Ur Leukocyte Esterase Moderate H (Negative) Urine RBC 2 (0-5) /hpf Urine WBC 5 (0-5) /hpf Ur Squamous Epith Cells 1 (0-4) /hpf Urine Mucus Rare H (None) /hpf Disposition Is patient prescribed a controlled substance at d/c from ED?: No Time of Disposition: 00:55 <Miguel Angel Webb - Last Filed: 08/24/18 00:54> <Priscilla Goldstein - Last Filed: 08/24/18 01:03> Clinical Impression: Abdominal pain Disposition: HOME SELF-CARE Condition: Good Instructions: Abdominal Pain (ED) Additional Instructions: Please use medication as discussed. Please follow-up with family doctor in the next 2 days of symptoms have not improved. Please return to emergency room if the symptoms increase or worsen or for any other concerns. Prescriptions: Ondansetron Odt [Zofran ODT] 4 mg PO Q8HR PRN #20 tab PRN Reason: Nausea Referrals: Chalo Ayala MD [Primary Care Provider] - 1-2 days
[2018-08-23 23:29] LABS: HCT 41.7 % (34.0-46.0); HGB 13.5 gm/dL (11.4-16.0); MCH 29.4 pg (25.0-35.0); MCHC 32.5 g/dL (31.0-37.0); MCV 90.3 fL (80.0-100.0); Platelet Count 474 k/uL (150-450); RBC 4.62 m/uL (3.80-5.40); RDW 12.4 % (11.5-15.5)
[2018-08-23 23:39] LABS: ALT 31 U/L (9-52); AST 27 U/L (14-36); Albumin 4.3 g/dL (3.5-5.0); Alkaline Phosphatase 82 U/L (38-126); Amylase 52 U/L (30-110); Anion Gap 9 mmol/L; Blood Urea Nitrogen 17 mg/dL (7-17); Calcium 9.7 mg/dL (8.4-10.2); Carbon Dioxide 29 mmol/L (22-30); Chloride 101 mmol/L (98-107); Glucose 91 mg/dL (74-99); Lipase 115 U/L (23-300); Potassium 3.5 mmol/L (3.5-5.1); Sodium 139 mmol/L (137-145); Total Bilirubin 0.3 mg/dL (0.2-1.3); Total Protein 7.4 g/dL (6.3-8.2)
[2018-08-23 23:47] LABS: Creatine Kinase 213 U/L (30-135)
[2018-08-23 23:51] LABS: Appearance,Urine Clear (Clear); Bilirubin,Urine Negative (Negative); Blood,Urine Negative (Negative); Color,Urine Yellow; Glucose,Urine (UA) Negative (Negative); Ketones,Urine Negative (Negative); Leukocyte Esterase,Urine Moderate (Negative); Mucus,Urine Rare /hpf; Nitrite,Urine Negative (Negative); Protein,Urine Negative (Negative); RBC,Urine 2 /hpf (0-5); Specific Gravity,Urine 1.017 (1.001-1.035); Squamous Epithelial Cell,Urine 1 /hpf (0-4); Urobilinogen,Urine <2.0 mg/dL (<2.0); WBC,Urine 5 /hpf (0-5)
[2018-08-24] LABS: Creatine Kinase MB 2.9 ng/mL (0.0-2.4); Troponin I <0.012 ng/mL (0.000-0.034)
[2018-08-24 00:15] LABS: Eosinophils # (M) 0.09 k/uL (0-0.7); Lymphocytes # (M) 2.43 k/uL (1.0-4.8); Monocytes # (M) 0.54 k/uL (0-1.0); Neutrophils # (M) 5.94 k/uL (1.3-7.7); Neutrophils % (M) 66 %; Nucleated Red Blood Cells 0 /100 WBC (0-0); Total Cells Counted 100
--- NOTE | 2018-08-24 00:41 | US ---
EXAMINATION TYPE: US abdomen limited DATE OF EXAM: 08/24/2018 COMPARISON: 05/01/2017 CLINICAL HISTORY: Pain. EXAM MEASUREMENTS: Liver Length: 20.3 cm Gallbladder Wall: 0.3 cm CBD: 0.4 cm Right Kidney: 11.6 x 3.5 x 5.2 cm Limited due to bowel gas. Pancreas: Tail obscured by overlying bowel gas Liver: Increased attenuation, measures upper limits of normal Gallbladder: wnl Evidence for sonographic Huddleston's sign: No CBD: wnl Right Kidney: ?dilated renal pelvis IMPRESSION: No gallstones or dilated ducts. No hydronephrosis. No adverse change compared to old exam .
[2018-08-24] MEDS ORDERED: KETOROLAC 30 MG/ML 1 ML VIAL IVP STA (00:52)
[2018-08-24 01:08] VITALS: BP 104/51; PULSE 67; RESP 16; TEMP 97.7
== END 2018-08-24 01:14 | disposition home or self-care (01) ==
LOC: EC 22:42
DX: R10.11 Right upper quadrant pain (principal); R19.5 Other fecal abnormalities; I10 Essential (primary) hypertension; M19.90 Unspecified osteoarthritis, unspecified site; Z87.891 Personal history of nicotine dependence; Z79.1 Long term (current) use of non-steroidal anti-inflammatories (NSAID); Z79.82 Long term (current) use of aspirin; Z79.899 Other long term (current) drug therapy; Z90.49 Acquired absence of other specified parts of digestive tract
CPT/HCPCS: 36415; 93005; 80053; 82150; 82550; 82553; 83690; 84484; 85025; 81001; 76705; 99284; 96374; 96375; 96361 ×2; J2405; J1885

== ENCOUNTER 2018-08-26 21:16 | Emergency (ER) | payer OTHER ==
[2018-08-26 21:22] VITALS: PULSE 65; TEMP 98.1
[2018-08-26] MEDS ORDERED: KETOROLAC 30 MG/ML 1 ML VIAL IVP STA (22:38)
[2018-08-26] MEDS ORDERED: SODIUM CHLORIDE 0.9% 1,000 ML IV STA (22:38)
[2018-08-26] MEDS ORDERED: ONDANSETRON 4 MG/2 ML VIAL IVP STA (22:38)
--- NOTE | 2018-08-26 22:39 | ED ---
Abdominal Pain HPI - General Chief Complaint: Abdominal Pain Stated Complaint: right side pain Time Seen by Provider: 08/26/18 21:57 Source: patient, RN notes reviewed Mode of arrival: ambulatory Limitations: no limitations - History of Present Illness Initial Comments: This is a 47-year-old female who presents to the emergency department with chief complaint of right upper quadrant abdominal pain. Patient states she was seen here in the emergency department a few days ago. An ultrasound of the gallbladder was obtained which revealed no acute abnormalities. She followed up with her primary care provider on Saturday and is scheduled for a HIDA scan on . Patient states that her primary care provider advised her to eat bland foods as patient's symptoms occur after eating. Patient reports a constant sharp pain in the right upper quadrant. She states that she has been drinking beef broth and eating bananas. She states that no matter what she eats she continues to have the pain. She states that she is able to tolerate fluids. States that she has been taking Tylenol 3 with minimal relief of symptoms. Reports nausea but denies vomiting. Denies diarrhea. Denies fevers or chills, chest pain. Patient states she has noticed wheezes that taking a deep breath when the pain is at its worst. - Related Data Home Medications Medication Instructions Recorded Confirmed Aspirin [Adult Low Dose Aspirin EC] 81 mg PO DAILY 01/07/18 08/26/18 Metoprolol Tartrate [Lopressor] 25 mg PO BID 01/07/18 08/26/18 Acetaminophen-Codeine 300-30mg 1 tab PO TID PRN 08/26/18 08/26/18 [Tylenol w/codeine #3] Levothyroxine Sodium [Synthroid] 125 mcg PO DAILY 08/26/18 08/26/18 Previous Rx's Medication Instructions Recorded Fludrocortisone [Florinef] 0.1 mg PO DAILY #30 tablet 12/06/17 Cephalexin [Keflex] 500 mg PO Q12HR #10 cap 08/27/18 Allergies Allergy/AdvReac Type Severity Reaction Status Date / Time No Known Allergies Allergy Verified 08/26/18 21:34 Review of Systems ROS Statement: Those systems with pertinent positive or pertinent negative responses have been documented in the HPI. ROS Other: All systems not noted in ROS Statement are negative. Past Medical History Past Medical History: Hypertension, Osteoarthritis (OA) Additional Past Medical History / Comment(s): ABDOMINAL PAIN, stomach ulcers, back pain,. pt stated she has umbilical hernia History of Any Multi-Drug Resistant Organisms: None Reported Past Surgical History: Appendectomy, Heart Catheterization, Hysterectomy, Orthopedic Surgery, Tubal Ligation Additional Past Surgical History / Comment(s): right knee SCOPE, left knee SCOPE , left shoulder REPAIR (2002) Past Anesthesia/Blood Transfusion Reactions: No Reported Reaction Past Psychological History: No Psychological Hx Reported Smoking Status: Former smoker Past Alcohol Use History: Occasional Past Drug Use History: None Reported - Past Family History Father Family Medical History: No Reported History Mother Family Medical History: Osteoarthritis (OA) General Exam - General Exam Comments Initial Comments: General: Awake and alert, well-developed; in no apparent distress. Patient does not appear acutely ill or in any pain. HEENT: Head atraumatic, normocephalic. Pupils are equal, round and reactive to light. Extraocular movements intact. Oropharynx moist without erythema or exudate. Neck: Supple. Normal ROM. Cardiovascular: Regular rate and rhythm. No murmurs, rubs or gallops. Chest symmetrical. Respiratory: Normal respiratory effort with no use of accessory muscles. Wheezes bilateral lung bases. No rhonchi or rales. Abdomen: Soft, non-distended. Mild tenderness on palpation of right upper quadrant. No rigidity, rebound or guarding. Normal bowel sounds in all 4 quadrants. Musculoskeletal: Normal ROM, no tenderness bilateral upper and lower extremities. Ambulating normally. Skin: [place], warm and dry without rashes or lesions. Neurological: Alert and oriented x3. CN II-XII grossly intact. Speech is fluent and answers are appropriate. No focal neuro deficits. Psychiatric: Normal mood and affect. No overt signs of depression or anxiety noted. Limitations: no limitations Course Vital Signs 08/26/18 08/26/18 08/26/18 21:18 21:44 22:00 Temperature 98.1 F Pulse Rate 65 Respiratory 20 Rate Blood Pressure 115/52 100/69 O2 Sat by Pulse 100 94 L 95 Oximetry 08/26/18 08/27/18 23:00 00:00 Temperature Pulse Rate 65 65 Respiratory 18 22 Rate Blood Pressure 106/75 97/66 O2 Sat by Pulse 97 Oximetry Medical Decision Making - Medical Decision Making This is a 47-year-old female who presents to the emergency department with chief complaint of right upper quadrant abdominal pain. Patient states that pain has been present for approximately a week and a half. She was evaluated here a few days ago and an ultrasound of the gallbladder was obtained which revealed no acute abnormalities. Patient does have a HIDA scan scheduled for this coming . She states that her pain is constant and will not go away. CBC, CMP revealed no significant abnormalities. UA did indicate evidence for infection with leukocyte esterase and high white blood cells. Patient given a dose of Rocephin here in the emergency department. Patient also complained of wheezing with deep breathing. Wheezes were auscultated in bilateral lung bases. Chest x-ray did reveal evidence for bronchitis. EKG showed normal sinus rhythm with a low voltage QRS. EKG was compared to that on 08/23/2018. QRS waves in leads V3, V4, V5 and V6 are inverted which is different from previous. Patient denies any chest pain or shortness of breath. Case discussed with attending physician, Dr. Judge. Troponin was obtained and is negative. Patient is in no acute distress. She does not appear to be in any pain, although she continues to request pain medication. She will be discharged home at this time with recommendation to follow-up with her primary care provider and undergo the HIDA scan as scheduled. Vitals have been stable. All questions have been answered. Condition upon discharge is stable. - Lab Data Result diagrams: 08/26/18 21:41 08/26/18 21:41 Lab Results 08/26/18 08/26/18 08/26/18 Range/Units 21:41 21:41 21:41 WBC 7.3 (3.8-10.6) k/uL RBC 4.32 (3.80-5.40) m/uL Hgb 13.2 (11.4-16.0) gm/dL Hct 39.9 (34.0-46.0) % MCV 92.3 (80.0-100.0) fL MCH 30.5 (25.0-35.0) pg MCHC 33.1 (31.0-37.0) g/dL RDW 12.2 (11.5-15.5) % Plt Count 460 H (150-450) k/uL Neutrophils % 58 % Lymphocytes % 33 % Monocytes % 4 % Eosinophils % 3 % Basophils % 1 % Neutrophils # 4.2 (1.3-7.7) k/uL Lymphocytes # 2.4 (1.0-4.8) k/uL Monocytes # 0.3 (0-1.0) k/uL Eosinophils # 0.2 (0-0.7) k/uL Basophils # 0.0 (0-0.2) k/uL Sodium 139 (137-145) mmol/L Potassium 4.0 (3.5-5.1) mmol/L Chloride 103 (98-107) mmol/L Carbon Dioxide 28 (22-30) mmol/L Anion Gap 8 mmol/L BUN 14 (7-17) mg/dL Creatinine 0.67 (0.52-1.04) mg/dL Est GFR (CKD-EPI)AfAm >90 (>60 ml/min/1.73 sqM) Est GFR (CKD-EPI)NonAf >90 (>60 ml/min/1.73 sqM) Glucose 101 H (74-99) mg/dL Calcium 9.7 (8.4-10.2) mg/dL Total Bilirubin 0.3 (0.2-1.3) mg/dL AST 34 (14-36) U/L ALT 37 (9-52) U/L Alkaline Phosphatase 74 (38-126) U/L Troponin I <0.012 (0.000-0.034) ng/mL Total Protein 7.3 (6.3-8.2) g/dL Albumin 4.1 (3.5-5.0) g/dL Amylase 41 (30-110) U/L Lipase 113 (23-300) U/L Urine Color Urine Appearance (Clear) Urine pH (5.0-8.0) Ur Specific [place] (1.001-1.035) Urine Protein (Negative) Urine Glucose (UA) (Negative) Urine Ketones (Negative) Urine Blood (Negative) Urine Nitrite (Negative) Urine Bilirubin (Negative) Urine Urobilinogen (<2.0) mg/dL Ur Leukocyte Esterase (Negative) Urine RBC (0-5) /hpf Urine WBC (0-5) /hpf Ur Squamous Epith Cells (0-4) /hpf Amorphous Sediment (None) /hpf Urine Mucus (None) /hpf 16/18 Range/Units 22:20 WBC (3.8-10.6) k/uL RBC (3.80-5.40) m/uL Hgb (11.4-16.0) gm/dL Hct (34.0-46.0) % MCV (80.0-100.0) fL MCH (25.0-35.0) pg MCHC (31.0-37.0) g/dL RDW (11.5-15.5) % Plt Count (150-450) k/uL Neutrophils % % Lymphocytes % % Monocytes % % Eosinophils % % Basophils % % Neutrophils # (1.3-7.7) k/uL Lymphocytes # (1.0-4.8) k/uL Monocytes # (0-1.0) k/uL Eosinophils # (0-0.7) k/uL Basophils # (0-0.2) k/uL Sodium (137-145) mmol/L Potassium (3.5-5.1) mmol/L Chloride (98-107) mmol/L Carbon Dioxide (22-30) mmol/L Anion Gap mmol/L BUN (7-17) mg/dL Creatinine (0.52-1.04) mg/dL Est GFR (CKD-EPI)AfAm (>60 ml/min/1.73 sqM) Est GFR (CKD-EPI)NonAf (>60 ml/min/1.73 sqM) Glucose (74-99) mg/dL Calcium (8.4-10.2) mg/dL Total Bilirubin (0.2-1.3) mg/dL AST (14-36) U/L ALT (9-52) U/L Alkaline Phosphatase (38-126) U/L Troponin I (0.000-0.034) ng/mL Total Protein (6.3-8.2) g/dL Albumin (3.5-5.0) g/dL Amylase (30-110) U/L Lipase (23-300) U/L Urine Color Yellow Urine Appearance Clear (Clear) Urine pH 5.5 (5.0-8.0) Ur Specific [place] 1.026 (1.001-1.035) Urine Protein Trace H (Negative) Urine Glucose (UA) Negative (Negative) Urine Ketones Negative (Negative) Urine Blood Trace H (Negative) Urine Nitrite Negative (Negative) Urine Bilirubin Negative (Negative) Urine Urobilinogen 2.0 (<2.0) mg/dL Ur Leukocyte Esterase Large H (Negative) Urine RBC 3 (0-5) /hpf Urine WBC 25 H (0-5) /hpf Ur Squamous Epith Cells 4 (0-4) /hpf Amorphous Sediment Occasional H (None) /hpf Urine Mucus Few H (None) /hpf - EKG Data EKG Comments: 22:22:07. Normal sinus rhythm. Low voltage QRS. Possible lateral infarct, age undetermined. Ventricular rate 64 bpm, TN interval 164, QRS duration 78, QT /QTc 418/431 - Radiology Data Radiology results: report reviewed, image reviewed Chest x-ray impression: Lung markings are increased slightly compared to last exam. This could relate to mild bronchitis. Disposition Clinical Impression: Bronchitis, Abdominal pain, Urinary tract infection Disposition: HOME SELF-CARE Condition: Good Instructions: Urinary Tract Infection in Women (ED), Acute Bronchitis (ED), Abdominal Pain (ED) Additional Instructions: Please take medications as prescribed. Please follow up with primary care provider within 1-2 days. Return to emergency department if symptoms should worsen or any concerns arise. Prescriptions: Cephalexin [Keflex] 500 mg PO Q12HR #10 cap Is patient prescribed a controlled substance at d/c from ED?: No Referrals: Chalo Ayala MD [Primary Care Provider] - 1-2 days Time of Disposition: 00:14
[2018-08-26 22:40] LABS: Basophils % (A) 1 %; Eosinophils # (A) 0.2 k/uL (0-0.7); Eosinophils % (A) 3 %; HCT 39.9 % (34.0-46.0); HGB 13.2 gm/dL (11.4-16.0); Lymphocytes # (A) 2.4 k/uL (1.0-4.8); Lymphocytes % (A) 33 %; MCH 30.5 pg (25.0-35.0); MCHC 33.1 g/dL (31.0-37.0); MCV 92.3 fL (80.0-100.0); Mean Platelet Volume 6.1; Monocytes # (A) 0.3 k/uL (0-1.0); Monocytes % (A) 4 %; Neutrophils # (A) 4.2 k/uL (1.3-7.7); Neutrophils % (A) 58 %; Platelet Count 460 k/uL (150-450); RBC 4.32 m/uL (3.80-5.40); RDW 12.2 % (11.5-15.5); WBC 7.3 k/uL (3.8-10.6)
[2018-08-26 22:50] LABS: Amorphous Sediment,Urine Occasional /hpf; Appearance,Urine Clear (Clear); Bilirubin,Urine Negative (Negative); Blood,Urine Trace (Negative); Color,Urine Yellow; Glucose,Urine (UA) Negative (Negative); Ketones,Urine Negative (Negative); Leukocyte Esterase,Urine Large (Negative); Mucus,Urine Few /hpf; Nitrite,Urine Negative (Negative); PH, Urine 5.5 (5.0-8.0); Protein,Urine Trace (Negative); RBC,Urine 3 /hpf (0-5); Specific Gravity,Urine 1.026 (1.001-1.035); Squamous Epithelial Cell,Urine 4 /hpf (0-4); WBC,Urine 25 /hpf (0-5)
[2018-08-26 22:50] LABS: ALT 37 U/L (9-52); AST 34 U/L (14-36); Albumin 4.1 g/dL (3.5-5.0); Alkaline Phosphatase 74 U/L (38-126); Amylase 41 U/L (30-110); Anion Gap 8 mmol/L; Blood Urea Nitrogen 14 mg/dL (7-17); Calcium 9.7 mg/dL (8.4-10.2); Carbon Dioxide 28 mmol/L (22-30); Chloride 103 mmol/L (98-107); Glucose 101 mg/dL (74-99); Lipase 113 U/L (23-300); Sodium 139 mmol/L (137-145); Total Bilirubin 0.3 mg/dL (0.2-1.3); Total Protein 7.3 g/dL (6.3-8.2)
--- NOTE | 2018-08-26 22:53 | XR ---
EXAMINATION TYPE: XR chest 2V DATE OF EXAM: 08/26/2018 COMPARISON: 12/04/2017 HISTORY: Wheezing TECHNIQUE: Frontal and lateral views of the chest are obtained. FINDINGS: Heart and mediastinum are normal. Lungs are clear of infiltrate. Diaphragm is normal. Bony thorax is intact. There is slight coarsening of the lung markings. IMPRESSION: Lung markings are increased slightly compared to last exam the could relate to mild bron chitis.
[2018-08-27] MEDS ORDERED: HYDROcodone/APAP 5-325MG 1 EACH TAB PO STA (00:19)
[2018-08-27 00:24] VITALS: BP 97/66; RESP 22
== END 2018-08-27 00:30 | disposition home or self-care (01) ==
LOC: EC 21:16
DX: J40 Bronchitis, not specified as acute or chronic (principal); N39.0 Urinary tract infection, site not specified; R10.11 Right upper quadrant pain; D72.829 Elevated white blood cell count, unspecified; R11.0 Nausea; I10 Essential (primary) hypertension; M19.90 Unspecified osteoarthritis, unspecified site; Z87.891 Personal history of nicotine dependence; Z79.82 Long term (current) use of aspirin; Z79.899 Other long term (current) drug therapy; Z87.19 Personal history of other diseases of the digestive system; Z90.49 Acquired absence of other specified parts of digestive tract
CPT/HCPCS: 36415; 93005; 80053; 82150; 83690; 84484; 85025; 81001; 71046; 99285; 96365; 96375 ×2; 96361; J2405; J0696; J1885; 87040

== ENCOUNTER → 2018-08-28 | Outpatient (CLI) | payer SELFPAY ==
--- NOTE | 2018-08-28 10:49 | NM ---
Nuclear medicine hepatobiliary scan. HISTORY: Pain. COMPARISON: 05/20/2017 DOSAGE: The patient received 8 ounces of ensure plus and 5.4 mCi of Technetium 99m Choletec. FINDINGS: There is normal hepatic extraction. The gallbladder is seen by 20 minutes. There is bilia ry to bowel clearance by 20 minutes. Ejection fraction is 84%. IMPRESSION: 1. No evidence of cholecystitis. 2. Ejection fraction of 84%.
== END | disposition home or self-care (01) ==
LOC: RADNMMAIN 07:03
PROVIDERS: ATTEND Nurse Practitioner Family
DX: R10.11 Right upper quadrant pain (principal)
CPT/HCPCS: 78226; A9537

== ENCOUNTER → 2018-11-05 | Outpatient (CLI) | payer OTHER ==
[2018-11-05 11:50] LABS: HCT 43.3 % (34.0-46.0); HGB 14.3 gm/dL (11.4-16.0); MCH 30.4 pg (25.0-35.0); MCHC 33.1 g/dL (31.0-37.0); MCV 91.8 fL (80.0-100.0); Mean Platelet Volume 5.9; Platelet Count 461 k/uL (150-450); RBC 4.71 m/uL (3.80-5.40); RDW 12.4 % (11.5-15.5)
[2018-11-05 18:06] LABS: Albumin 4.4 g/dL (3.80-4.90); Albumin/Globulin Ratio 1.83 (1.20-2.10); Anion Gap 5.8 mmol/L (4.00-12.00); Calcium 9.9 mg/dL (8.7-10.3); Carbon Dioxide 31.2 mmol/L (21.6-31.8); Globulin 2.4 g/dL (1.6-3.3); Potassium 4.9 mmol/L (3.5-5.5); Total Bilirubin 0.4 mg/dL (0.2-1.2); Total Protein 6.8 g/dL (6.2-8.2)
== END | disposition home or self-care (01) ==
LOC: LABWHC1 11:18
PROVIDERS: ATTEND Surgery
DX: K82.8 Other specified diseases of gallbladder (principal)
CPT/HCPCS: 36415; 80053; 85027

== ENCOUNTER → 2018-11-19 | Day surgery (SDC) | payer OTHER ==
[2018-11-14 12:02] VITALS: BMI 39.1
[~2018-11-19] MED LIST changes: +BUPIVACAIN-EPI 0.25%-1:200,000 30 ML VIAL SQ ONE; -EPINEPHrine (PF) 1 ML in SODIUM CHLORIDE 0.9% IRRIGATIO 3,000 ML IRRIGATION ONE; +GLYCOPYRROLATE 0.2 MG/ML 2 ML VIAL ONE; +HEPARIN SODIUM,PORCINE 5,000 UNIT/ML 1 ML VIAL SQ ONE; +HYDROcodone/APAP 5-325MG 1 EACH TAB PO PRN; +HYDROmorphone 0.5 MG/0.5 ML SYRINGE IVP PRN; -LACTATED RINGERS 1,000 ML IV ONE; +LACTATED RINGERS 1,000 ML IV SCH; +LIDOCAINE 1% 20 ML VIAL (10MG/ML) FOR IV START INTRADERMA ONE; -LIDOCAINE 1% 20 ML VIAL (10MG/ML) FOR IV START INTRADERMA PRN; +MIDAZOLAM (PF) 2 MG/2 ML VIAL IV PRN; -MIDAZOLAM 2 MG/2 ML VIAL IV PRN; -MORPHINE SULFATE 4 MG/ML SYRINGE IV PRN; +NALOXONE 0.4 MG/ML 1 ML VIAL IV PRN; +NEOSTIGMINE 1 MG/ML 10 ML VIAL ONE; -PHENYLEPHRINE-0.9% NACL SYG 1 MG/10 ML SYRINGE ONE; +ROCURONIUM BROMIDE 10 MG/ML 10 ML VIAL IV ONE; -SUCCINYLCHOLINE CHLORIDE 100 MG/5 ML SYR IV ONE
[2018-11-19 07:15] VITALS: RESP 16
[2018-11-19 07:15] LABS: Glucose,Whole Blood 99 mg/dL (75-99)
--- NOTE | 2018-11-19 07:54 | P.GSHP ---
History of Present Illness H&P Date: 11/19/18 Chief Complaint: Biliary dyskinesia Patient here today for elective cholecystectomy. Patient has had an extensive workup. Please refer to history and physical from early October. Patient had a HIDA scan showing an elevated ejection fraction. He has complaints of right upper quadrant pain with radiation of the back. Aggravated by most foods. No history of gallstones. Past Medical History Past Medical History: Osteoarthritis (OA), Syncope, Thyroid Disorder Additional Past Medical History / Comment(s): ABDOMINAL PAIN, stomach ulcers, back pain,. pt stated she has umbilical hernia, states hx. of V Tach. History of Any Multi-Drug Resistant Organisms: None Reported Past Surgical History: Appendectomy, Heart Catheterization, Hysterectomy, Orthopedic Surgery, Tubal Ligation Additional Past Surgical History / Comment(s): right knee scope, left knee scope , left shoulder surgery, (2002), Tilt Table test. Past Anesthesia/Blood Transfusion Reactions: No Reported Reaction Smoking Status: Former smoker - Past Family History Father Family Medical History: No Reported History Mother Family Medical History: Osteoarthritis (OA) Medications and Allergies Home Medications Medication Instructions Recorded Confirmed Type Aspirin [Adult Low Dose Aspirin EC] 81 mg PO DAILY 01/07/18 11/19/18 History Metoprolol Tartrate [Lopressor] 25 mg PO BID 01/07/18 11/19/18 History Levothyroxine Sodium [Synthroid] 112 mcg PO DAILY 08/26/18 11/19/18 History Fludrocortisone [Florinef] 0.1 mg PO SUWEFR 11/14/18 11/19/18 History Allergies Allergy/AdvReac Type Severity Reaction Status Date / Time No Known Allergies Allergy Verified 11/19/18 06:53 Surgical - Exam Vital Signs Temp Pulse Resp BP Pulse Ox 98.4 F 85 16 91/50 96 11/19/18 07:11 11/19/18 07:11 11/19/18 07:11 11/19/18 07:11 11/19/18 07:11 Physical exam: General: Well-developed, well-nourished HEENT: Normocephalic, sclerae nonicteric Abdomen: Mild right upper quadrant tenderness, nondistended Extremities: No edema Neuro: Alert and oriented Assessment and Plan (1) Biliary dyskinesia Narrative/Plan: Will proceed with laparoscopic cholecystectomy at this time. Risks of bleeding, infection, bile leak, bile duct injury, retained common bile duct stone, trocar injury, conversion to an open procedure, hernia, anesthesia related complications, and persistent abdominal pain were reviewed. The patient understands and wishes to proceed. Current Visit: Yes Status: Acute Code(s): K82.8 - OTHER SPECIFIED DISEASES OF GALLBLADDER SNOMED Code(s): 994465669
[2018-11-19 09:09] VITALS: TEMP 96.8
--- NOTE | 2018-11-19 09:26 | P.OP ---
Date of Procedure: 11/19/18 Procedure(s) Performed: PREOPERATIVE DIAGNOSIS: Biliary dyskinesia POSTOPERATIVE DIAGNOSIS: Same PROCEDURE: Laparoscopic cholecystectomy SURGEON: Carlos EBL: Minimal see anesthesia record ANESTHESIA: Gen. COMPLICATIONS: None OPERATIVE PROCEDURE: The patient was brought and placed on the operating room table in the supine position. The patient was placed under general anesthesia at that time. The abdomen was prepped and draped in the usual sterile fashion. A small vertical infraumbilical incision was made. The fascia was grasped with the Laure forceps. The fascia was retracted anteriorly. The Veress needle was advanced into the peritoneal cavity. The saline drop test was normal. During insufflation the pressure became elevated fairly quickly. For that reason I was concerned about the possibility of adhesions despite only having had laparoscopic procedures. I entered the perineal cavity instead using an optical 5 mm trocar in the right upper quadrant. There was a small amount of air within the abdominal cavity. Following insufflation took place at that time up to 15 mmHg. the patient had some adhesions in the umbilical and infraumbilical location. There was omentum adherent to the abdominal wall. There appeared to be some air from our insufflation initially in the omentum itself. There was no bowel visible in that location. An additional 5 mm trocar was placed at the umbilical incision site directed away from the adhesions. An additional 5 mm trocar was placed lateral in the right upper quadrant under direct visualization. A 12 mm trocar was advanced into the epigastric incision site. The gallbladder was retracted superiorly and laterally. The peritoneum overlying the infundibulum was bluntly dissected. The patient's cystic duct was visualized. The junction between the cystic duct common and hepatic duct was identified. The cystic duct was then divided after placement of 3 12 mm clips on the patient's side and one on the specimen side. The cystic artery was identified and clipped as well. A small vessel was seen along the gallbladder fossa and clipped as well. The gallbladder was then removed from the liver bed using electrocautery. The gallbladder was then removed from the epigastric trocar site with an Endo Catch bag. The gallbladder fossa was irrigated with saline. There was no evidence of any bleeding or biliary drainage seen. The trochars were then removed. The fascia at the 12 millimeter site was closed using a Jules-Karey 0 Vicryl stitch. The skin at all 4 sites was closed using a 4-0 Monocryl stitch. Skin glue was utilized on the incision sites. At the end of this procedure the sponge and needle counts were correct. DISPOSITION: Stable to the recovery room
[2018-11-19 10:33] VITALS: BP 86/56; PULSE 63
== END ==
LOC: OR 06:42
PROVIDERS: ATTEND Surgery
DX: K82.8 Other specified diseases of gallbladder (principal); K66.0 Peritoneal adhesions (postprocedural) (postinfection); M19.90 Unspecified osteoarthritis, unspecified site; E07.9 Disorder of thyroid, unspecified; I10 Essential (primary) hypertension; Z87.891 Personal history of nicotine dependence; K42.9 Umbilical hernia without obstruction or gangrene; R55 Syncope and collapse; Z79.82 Long term (current) use of aspirin; Z79.890 Hormone replacement therapy; Z79.899 Other long term (current) drug therapy; Z79.52 Long term (current) use of systemic steroids
CPT/HCPCS: 88304; 47562; J2250; J1644; J1100; J2710; J2405; J2001; J3010; J1885; J2704; J0690

== ENCOUNTER → 2019-04-16 | Outpatient (CLI) | payer OTHER | END | disposition home or self-care (01) | LOC: LABWHC1 16:47 | PROVIDERS: ATTEND Internal Medicine Endocrinology, Diabetes & Metabolism | DX: E03.8 Other specified hypothyroidism (principal) | CPT/HCPCS: 36415; 84443 ==

== ENCOUNTER → 2019-07-01 | Outpatient (CLI) | payer OTHER ==
[2019-07-01 08:56] LABS: Basophils % (A) 0 %; Eosinophils % (A) 0 %; HCT 41.4 % (34.0-46.0); HGB 13.7 gm/dL (11.4-16.0); Lymphocytes # (A) 1.8 k/uL (1.0-4.8); Lymphocytes % (A) 18 %; MCH 30.1 pg (25.0-35.0); MCHC 33.2 g/dL (31.0-37.0); MCV 90.6 fL (80.0-100.0); Mean Platelet Volume 6.7; Monocytes # (A) 0.6 k/uL (0-1.0); Monocytes % (A) 5 %; Neutrophils # (A) 7.9 k/uL (1.3-7.7); Neutrophils % (A) 76 %; Platelet Count 468 k/uL (150-450); RBC 4.56 m/uL (3.80-5.40); RDW 13.2 % (11.5-15.5); WBC 10.5 k/uL (3.8-10.6)
[2019-07-01 17:26] LABS: African American GFR (CKD) 117.1 (60.0-200.0); Albumin 4.4 g/dL (3.80-4.90); Albumin/Globulin Ratio 1.83 (1.60-3.17); Anion Gap 9.7 mmol/L (4.00-12.00); BUN/Creat Ratio 18.57 Ratio (12.00-20.00); Calcium 10.1 mg/dL (8.7-10.3); Carbon Dioxide 26.3 mmol/L (21.6-31.8); Globulin 2.4 g/dL (1.6-3.3); Magnesium 1.9 mg/dL (1.5-2.4); Potassium 4.8 mmol/L (3.5-5.5); Total Bilirubin 0.5 mg/dL (0.3-1.2); Total Protein 6.8 g/dL (6.2-8.2)
== END | disposition home or self-care (01) ==
LOC: LABWHC1 07:42
PROVIDERS: ATTEND Nurse Practitioner Family
DX: M54.16 Radiculopathy, lumbar region (principal); R25.2 Cramp and spasm
CPT/HCPCS: 36415; 80053; 83735; 85025

== ENCOUNTER → 2019-07-09 | Outpatient (CLI) | payer OTHER ==
[2019-07-09 13:17] LABS: Basophils % (A) 0 %; Eosinophils # (A) 0.1 k/uL (0-0.7); Eosinophils % (A) 1 %; HGB 13.9 gm/dL (11.4-16.0); Lymphocytes # (A) 1.8 k/uL (1.0-4.8); Lymphocytes % (A) 15 %; MCHC 33.2 g/dL (31.0-37.0); MCV 93.4 fL (80.0-100.0); Monocytes # (A) 0.6 k/uL (0-1.0); Monocytes % (A) 5 %; Neutrophils # (A) 9.3 k/uL (1.3-7.7); Neutrophils % (A) 78 %; Platelet Count 485 k/uL (150-450)
[2019-07-09 13:25] LABS: INR 0.9 (<1.2); Partial Thromboplastin Time 24.7 sec (22.0-30.0); Prothrombin Time 10.2 sec (9.0-12.0)
[2019-07-09 18:42] LABS: African American GFR (CKD) 99.6 (60.0-200.0); Albumin 4.2 g/dL (3.80-4.90); Anion Gap 3.9 mmol/L (4.00-12.00); BUN/Creat Ratio 18.75 Ratio (12.00-20.00); Calcium 9.7 mg/dL (8.7-10.3); Carbon Dioxide 30.1 mmol/L (21.6-31.8); Globulin 2.1 g/dL (1.6-3.3); Potassium 4.9 mmol/L (3.5-5.5); Total Bilirubin 0.4 mg/dL (0.3-1.2); Total Protein 6.3 g/dL (6.2-8.2)
[2019-07-09 18:51] LABS: T4, Free (Free Thyroxine) 1.4 ng/dL (0.80-1.80)
== END | disposition home or self-care (01) ==
LOC: LABWHC1 12:01
PROVIDERS: ATTEND Nurse Practitioner Family
DX: E04.9 Nontoxic goiter, unspecified (principal); E06.3 Autoimmune thyroiditis; I49.3 Ventricular premature depolarization; D47.3 Essential (hemorrhagic) thrombocythemia
CPT/HCPCS: 36415; 80053; 82728; 83540; 83550; 84439; 84443; 85025; 85610; 85730

== ENCOUNTER → 2019-07-11 | Outpatient (CLI) | payer OTHER ==
--- NOTE | 2019-07-12 06:53 | MR ---
EXAMINATION TYPE: MR lumbar spine wo con DATE OF EXAM: 07/11/2019 COMPARISON: 12/03/2016 MRI lumbar spine HISTORY: Low back pain / Pain in right leg TECHNIQUE: Multiplanar, multisequence images of the lumbar spine were acquired. FINDINGS: The lumbar spine vertebral bodies maintain normal vertebral body height and alignment. Conu s medullaris again terminates at approximately L1. T2/T1 hyperintense vertebral body hemangioma is se en at T12. Lumbar signal is within normal limits. L1-L2: Disc desiccation without spinal canal stenosis nor neuroforaminal narrowing. No focal herniati on. L2-L3: Small broad-based disc bulge without spinal canal stenosis or neural foraminal narrowing. L3-L4: Very small central disc herniation with annular tear. Minimal facet arthropathy. No spinal can al stenosis nor neuroforaminal narrowing. L4-L5: Broad-based disc bulge results in mild bilateral neural foraminal narrowing and mild facet art hropathy is also seen. Previously questioned annular tear is not seen. L5-S1: Small broad-based disc bulge without spinal canal stenosis nor neural foraminal narrowing. IMPRESSION: Very small central disc herniation at L3-L4, new from the prior. Mild degenerative disc disease at L2 -S1 with only mild bilateral neural foraminal narrowing at L4-L5. No spinal canal stenosis.
== END | disposition home or self-care (01) ==
LOC: RADMRIMAIN 08:49
PROVIDERS: ATTEND Nurse Practitioner Family
DX: M48.061 Spinal stenosis, lumbar region without neurogenic claudication (principal); M51.26 Other intervertebral disc displacement, lumbar region; M51.36 Other intervertebral disc degeneration, lumbar region
CPT/HCPCS: 72148

== ENCOUNTER 2019-07-23 17:02 | Emergency (ER) | payer OTHER ==
[2019-07-23 17:11] VITALS: PULSE 70
--- NOTE | 2019-07-23 18:55 | XR ---
EXAMINATION TYPE: XR chest 2V DATE OF EXAM: 07/23/2019 COMPARISON: 08/26/2018 HISTORY: Cough and congestion TECHNIQUE: Frontal and lateral views of the chest are obtained. FINDINGS: Heart and mediastinum are normal. Lungs are clear. Diaphragm is normal. Bony thorax appear s normal. IMPRESSION: Normal chest. No adverse change compared to old exam.
[2019-07-23] MEDS ORDERED: ONDANSETRON 4 MG ODT STARTER PACK 2 TAB BTL PO STA (19:05)
--- NOTE | 2019-07-23 19:10 | ED ---
General Adult HPI - General Chief complaint: Upper Respiratory Infection Stated complaint: Diarrhea, nausea Time Seen by Provider: 07/23/19 17:43 Source: patient, RN notes reviewed Mode of arrival: ambulatory Limitations: no limitations - History of Present Illness Initial comments: 48-year-old female presents to the emergency department for a chief complaint of "getting sick." Patient states that she was not able to go to work today so needed a work note. States she has had a cough for the past 2 days and feels that she is coming down with a cold. States she has also been nauseous but has not vomited. Denies any abdominal pain. Denies any chest pain or shortness of breath. Denies any fevers or chills. Does admit to mild congestion but denies sore throat .Patient has no other complaints at this time including shortness of breath, chest pain, abdominal pain, nausea or vomiting, headache, or visual changes. - Related Data Home Medications Medication Instructions Recorded Confirmed Aspirin [Adult Low Dose Aspirin EC] 81 mg PO DAILY 01/07/18 11/19/18 Metoprolol Tartrate [Lopressor] 25 mg PO BID 01/07/18 11/19/18 Levothyroxine Sodium [Synthroid] 112 mcg PO DAILY 08/26/18 11/19/18 Fludrocortisone [Florinef] 0.1 mg PO SUWEFR 11/14/18 11/19/18 Previous Rx's Medication Instructions Recorded Hydrocodone/Acetaminophen [Bur[place] 1 - 2 each PO Q4HR PRN #10 tab 11/19/18 5-325] Allergies Allergy/AdvReac Type Severity Reaction Status Date / Time No Known Allergies Allergy Verified 07/23/19 17:10 Review of Systems ROS Statement: Those systems with pertinent positive or pertinent negative responses have been documented in the HPI. ROS Other: All systems not noted in ROS Statement are negative. Past Medical History Past Medical History: Hypertension, Osteoarthritis (OA) Additional Past Medical History / Comment(s): ABDOMINAL PAIN, stomach ulcers, back pain,. pt stated she has umbilical hernia History of Any Multi-Drug Resistant Organisms: None Reported Past Surgical History: Appendectomy, Heart Catheterization, Hysterectomy, Orthop edic Surgery, Tubal Ligation Additional Past Surgical History / Comment(s): right knee SCOPE, left knee SCOPE, left shoulder REPAIR (2002) Past Anesthesia/Blood Transfusion Reactions: No Reported Reaction Past Psychological History: No Psychological Hx Reported Smoking Status: Former smoker Past Alcohol Use History: Occasional Past Drug Use History: None Reported - Past Family History Father Family Medical History: No Reported History Mother Family Medical History: Osteoarthritis (OA) General Exam Limitations: no limitations General appearance: alert, in no apparent distress Head exam: Present: atraumatic, normocephalic, normal inspection Eye exam: Present: normal appearance, PERRL, EOMI. Absent: scleral icterus, conjunctival injection, periorbital swelling ENT exam: Present: normal exam, normal oropharynx, mucous membranes moist, TM's normal bilaterally, normal external ear exam Neck exam: Present: normal inspection, full ROM. Absent: tenderness, meningismus, lymphadenopathy Respiratory exam: Present: normal lung sounds bilaterally (Clear lung sounds bilaterally, no wheezing.). Absent: respiratory distress, wheezes, rales, rhonchi, stridor Cardiovascular Exam: Present: regular rate, normal rhythm, normal heart sounds. Absent: systolic murmur, diastolic murmur, rubs, gallop, clicks GI/Abdominal exam: Present: soft, normal bowel sounds. Absent: distended, tenderness (No tenderness of the abdomen whatsoever), guarding, rebound, rigid Neurological exam: Present: alert Psychiatric exam: Present: normal affect, normal mood Course Vital Signs 07/23/19 17:08 Temperature 97.9 F Pulse Rate 70 Respiratory 20 Rate Blood Pressure 124/81 O2 Sat by Pulse 99 Oximetry Medical Decision Making - Medical Decision Making 48-year-old female presents to the emergency department for a chief complaint of upper respiratory symptoms. States she has had a cough and congestion for about 2 days. States she did not feel well enough to go to work today so needed a work note. Does admit to nausea but denies vomiting. Denies any abdominal pain or fevers or chills. On evaluation patient is well-appearing. Vitals are stable. Lungs are clear to auscultation bilaterally.chest x-ray shows a normal chest. No consolidation noted. Patient likely has upper respiratory infection. Given that this has only been 2 days patient will not be placed on antibiotic as it is likely viral. However discussed that if symptoms do not improve in 7- 10 days she may need further management. Patient will return here if she has any worsening symptoms. Disposition Clinical Impression: Upper respiratory tract infection Disposition: HOME SELF-CARE Condition: Good Instructions (If sedation given, give patient instructions): Upper Respiratory Infection (ED) Additional Instructions: Please follow up with primary care in 1-2 days. Please return to the emergency department if you have any worsening symptoms. Is patient prescribed a controlled substance at d/c from ED?: No Referrals: Chalo Ayala MD [Primary Care Provider] - 1-2 days Time of Disposition: 19:09
[2019-07-23 19:54] VITALS: BP 110/67; RESP 18; TEMP 98.3
== END 2019-07-23 19:55 | disposition home or self-care (01) ==
LOC: EC 17:02
DX: J06.9 Acute upper respiratory infection, unspecified (principal); R19.7 Diarrhea, unspecified; M19.90 Unspecified osteoarthritis, unspecified site; I10 Essential (primary) hypertension; Z79.82 Long term (current) use of aspirin; Z79.890 Hormone replacement therapy; Z79.899 Other long term (current) drug therapy; Z87.891 Personal history of nicotine dependence
CPT/HCPCS: 71046; 99283; S0119

== ENCOUNTER → 2019-07-29 | Outpatient (CLI) | payer OTHER ==
--- NOTE | 2019-07-31 09:31 | MM ---
Reason for exam: screening (asymptomatic). Last mammogram was performed 2 years and 8 months ago. History: Patient is postmenopausal. Physical Findings: A clinical breast exam by your physician is recommended on an annual basis and results should be correlated with mammographic findings. MG 3D Screening Mammo W/Cad Bilateral CC and MLO view(s) were taken. Prior study comparison: November 14, 2016, bilateral MG screening mammo w CAD. There are scattered fibroglandular densities. No significant changes when compared with prior studies. ASSESSMENT: Negative, BI-RAD 1 RECOMMENDATION: Routine screening mammogram of both breasts in 1 year.
== END | disposition home or self-care (01) ==
LOC: RADMAMWWP 11:29
PROVIDERS: ATTEND Family Medicine
DX: Z12.31 Encounter for screening mammogram for malignant neoplasm of breast (principal); Z80.3 Family history of malignant neoplasm of breast
CPT/HCPCS: 77063; 77067

== ENCOUNTER → 2019-08-28 | Outpatient (CLI) | payer OTHER ==
[2019-08-28 12:22] LABS: Basophils % (A) 1 %; Eosinophils # (A) 0.2 k/uL (0-0.7); Eosinophils % (A) 4 %; HCT 40.8 % (34.0-46.0); HGB 13.7 gm/dL (11.4-16.0); Lymphocytes # (A) 1.6 k/uL (1.0-4.8); Lymphocytes % (A) 28 %; MCH 30.7 pg (25.0-35.0); MCHC 33.5 g/dL (31.0-37.0); MCV 91.6 fL (80.0-100.0); Mean Platelet Volume 5.4; Monocytes # (A) 0.3 k/uL (0-1.0); Monocytes % (A) 6 %; Neutrophils # (A) 3.5 k/uL (1.3-7.7); Neutrophils % (A) 60 %; Platelet Count 482 k/uL (150-450); RBC 4.45 m/uL (3.80-5.40); RDW 12.1 % (11.5-15.5); WBC 5.9 k/uL (3.8-10.6)
[2019-08-28 12:29] LABS: INR 0.9 (<1.2); Partial Thromboplastin Time 27.1 sec (22.0-30.0); Prothrombin Time 10.1 sec (9.0-12.0)
[2019-08-28 12:40] LABS: ALT 32 U/L (9-52); AST 28 U/L (14-36); African American GFR (CKD) >90 (>60 ml/min/1.73 sqM); Albumin 4.2 g/dL (3.5-5.0); Alkaline Phosphatase 92 U/L (38-126); Anion Gap 6 mmol/L; Blood Urea Nitrogen 16 mg/dL (7-17); Calcium 9.8 mg/dL (8.4-10.2); Carbon Dioxide 30 mmol/L (22-30); Chloride 104 mmol/L (98-107); Glucose 101 mg/dL (74-99); Potassium 4.9 mmol/L (3.5-5.1); Sodium 140 mmol/L (137-145); Total Bilirubin 0.5 mg/dL (0.2-1.3); Total Protein 7.3 g/dL (6.3-8.2)
--- NOTE | 2019-08-28 14:09 | XR ---
EXAMINATION TYPE: XR chest 2V DATE OF EXAM: 08/28/2019 COMPARISON: 07/23/2019 HISTORY: Presurgical testing TECHNIQUE: Frontal and lateral views of the chest are obtained. FINDINGS: There is no focal air space opacity, pleural effusion, or pneumothorax seen. The cardiac silhouette size is within normal limits. The osseous structures are intact. Minimal degenerative ch anges of the spine. IMPRESSION: No acute cardiopulmonary process.
== END | disposition home or self-care (01) ==
LOC: LABPAT 11:14
PROVIDERS: ATTEND Family Medicine
DX: Z01.818 Encounter for other preprocedural examination (principal); M25.561 Pain in right knee; I10 Essential (primary) hypertension
CPT/HCPCS: 36415; 71046; 80053; 84443; 85025; 85610; 85730

== ENCOUNTER → 2019-09-01 | Outpatient (CLI) | payer OTHER | LOC: LABPAT 10:51 | PROVIDERS: ATTEND Orthopaedic Surgery | DX: Z01.812 Encounter for preprocedural laboratory examination (principal) | CPT/HCPCS: 87070 ==

== ENCOUNTER 2019-09-08 13:24 | Day surgery (SDC) | payer OTHER ==
--- NOTE | 2019-09-07 10:04 | HP ---
HISTORY AND PHYSICAL CHIEF COMPLAINT: Right knee pain. 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 She has swelling and pain that is worse with activity. She notes weakness and giving way. She has tried previous medications and has had a previous arthroscopy with partial temporary relief. PAST MEDICAL HISTORY: Significant for hypothyroidism, hypertension, and arthritis. PAST SURGICAL HISTORY: Significant for hysterectomy, bilateral knee arthroscopy, laparoscopy, left shoulder surgery and appendectomy. CURRENT MEDICATIONS: Aspirin, gabapentin, metoprolol. She denies drug allergies. FAMILY HISTORY: Significant for cancer. SOCIAL HISTORY: Significant for 1 pack per week tobacco use. 16 POINT REVIEW OF SYSTEMS: Otherwise reviewed and is noncontributory. PHYSICAL EXAMINATION: On examination, the patient is approximately 5 foot 4, 237 pounds of endomorphic habitus. HEENT: Exam is nonfocal. NECK: Supple, she has painless passive motion of the right hip. Straight leg raise is negative. Active motion right knee -12 to 100 degrees of flexion. She has a large effusion. She is tender about the medial joint line. Collaterals are stable, Erica is negative, Conrad's is equivocal. She has genu varum alignment. Her distal neurovascular exam appears intact in the right lower extremity. Previous weightbearing, notch, lateral, and Merchant views of the right knee obtained in the office show severe medial and patellofemoral compartment narrowing. IMPRESSION: 1. Right knee severe medial and patellofemoral compartment osteoarthrosis-symptomatic. 2. Obesity. RECOMMENDATIONS: I talked to the patient at length regarding her condition along with treatment options. This point she is quite symptomatic from pain related to her story symptomatic from pain related to her osteoarthrosis despite conservative measures. After thorough discussion, she opts to proceed with surgery. We will plan to proceed with right total knee arthroplasty. We will institute DVT prophylaxis postoperatively. Risks and benefits were discussed at length in layman's terms. She underwent preoperative cardiac evaluation by Dr. Noriega. MMDENAEL / MICHAEL: [id number] /
[~2019-09-08 13:24] MED LIST changes: +ACETAMINOPHEN TAB 500 MG TAB PO ONE; -BUPIVACAIN-EPI 0.25%-1:200,000 30 ML VIAL SQ ONE; -GLYCOPYRROLATE 0.2 MG/ML 2 ML VIAL ONE; -HEPARIN SODIUM,PORCINE 5,000 UNIT/ML 1 ML VIAL SQ ONE; -HYDROcodone/APAP 5-325MG 1 EACH TAB PO ONE; -HYDROcodone/APAP 5-325MG 1 EACH TAB PO PRN; -KETOROLAC 30 MG/ML 1 ML VIAL ONE; -LACTATED RINGERS 1,000 ML IV SCH; -LIDOCAINE 1% 20 ML VIAL (10MG/ML) FOR IV START INTRADERMA ONE; +LIDOCAINE 1% 20 ML VIAL (10MG/ML) FOR IV START INTRADERMA PRN; -LIDOCAINE 1% INJ 10MG/ML (20 ML MDV) ONE; +MELOXICAM 7.5 MG TAB PO ONE; -MIDAZOLAM (PF) 2 MG/2 ML VIAL IV PRN; +MIDAZOLAM 2 MG/2 ML VIAL IV PRN; -MIDAZOLAM 2 MG/2 ML VIAL ONE; -NALOXONE 0.4 MG/ML 1 ML VIAL IV PRN; -NEOSTIGMINE 1 MG/ML 10 ML VIAL ONE; -PROPOFOL 10 MG/ML 20 ML VIAL IV ONE; -ROCURONIUM BROMIDE 10 MG/ML 10 ML VIAL IV ONE; +TRANEXAMIC ACID 1,000 MG in SODIUM CHLORIDE 0.9% 100 ML IVPB ONE; -ceFAZolin IN SWFI 2 GM/20 ML SYRINGE IVP ONE; -fentaNYL (PF) 50 MCG/ML 2 ML AMP ONE
[2019-09-08] MEDS: LACTATED RINGERS 1,000 ML IV SCH (14:10)
[2019-09-08 14:13] LABS: Glucose,Whole Blood 93 mg/dL (75-99)
[2019-09-08] MEDS ORDERED: LACTATED RINGERS 1,000 ML IV ONE (16:00)
[2019-09-08] MEDS ORDERED: HYDROmorphone (PF) 1 MG/ML ONE (16:18)
[2019-09-08] MEDS ORDERED: MIDAZOLAM 2 MG/2 ML VIAL ONE (16:18)
[2019-09-08] MEDS ORDERED: fentaNYL (PF) 50 MCG/ML 2 ML AMP ONE (16:18)
[2019-09-08] MEDS ORDERED: TRANEXAMIC ACID 1,000 MG/10 ML VIAL ONE (16:18)
[2019-09-08] MEDS ORDERED: PROPOFOL 10 MG/ML 20 ML VIAL IV ONE (16:18)
[2019-09-08] MEDS ORDERED: diphenhydrAMINE 50 MG/ML 1 ML VIAL ONE (16:18)
[2019-09-08] MEDS ORDERED: SODIUM CHLORIDE 0.9% 100 ML BAG ONE (16:18)
[2019-09-08] MEDS ORDERED: LIDOCAINE 1% INJ 10MG/ML (20 ML MDV) ONE (16:18)
[2019-09-08] MEDS ORDERED: SUCCINYLCHOLINE CHLORIDE 100 MG/5 ML SYR IV ONE (16:18)
[2019-09-08] MEDS ORDERED: ceFAZolin 3,000 MG in SODIUM CHLORIDE 0.9% IRRIGATIO 3,000 ML IRRIGATION ONE (16:57)
[2019-09-08] MEDS: ROPIVACAINE 246.25 MG, EPINEPHrine 0.5 MG, KETOROLAC 30 MG, cloNIDine HCL/PF 80 MCG, WA... MISCELLANE ONE ×10 (16:57→17:47)
[2019-09-08] MEDS ORDERED: ACETAMINOPHEN TAB 325 MG TAB PO PRN (17:59)
[2019-09-08] MEDS ORDERED: traMADol 50 MG TAB PO PRN (17:59)
[2019-09-08] MEDS ORDERED: MAGNESIUM HYDROXIDE 2,400 MG/10 ML CUP PO PRN (17:59)
[2019-09-08] MEDS ORDERED: ONDANSETRON 4 MG/2 ML VIAL IVP PRN (17:59)
[2019-09-08] MEDS ORDERED: NALOXONE 0.4 MG/ML 1 ML VIAL IV PRN (17:59)
[2019-09-08] MEDS ORDERED: HYDROmorphone 1 MG/ML 1 ML SYRINGE IVP PRN (17:59)
[2019-09-08] MEDS ORDERED: HYDROmorphone 0.5 MG/0.5 ML SYRINGE IVP PRN (17:59)
[2019-09-08] MEDS ORDERED: HYDROcodone/APAP 7.5-325MG 1 EACH TAB PO PRN (17:59)
--- NOTE | 2019-09-08 18:22 | P.OP ---
Date of Procedure: 09/08/19 Preoperative Diagnosis: Right knee severe tricompartmental osteoarthrosis Postoperative Diagnosis: Same Procedure(s) Performed: Right total knee arthroplastycementedcruciate retaining Implants: Depuy Attune size 6 cemented femoral component, size 5 cemented tibial component, 9 mm articular surface, 35 mm cemented patellar component. This is a cruciate retaining implant. Anesthesia: GETA, local Surgeon: Lionel Xie Seed Potato Cutter #1: Jos Joya Estimated Blood Loss (ml): 50 Pathology: other (Bone fragments) Condition: stable Disposition: PACU Indications for Procedure: The patient's a 48-year-old female who presents with progressive right knee pain secondary to osteoarthrosis despite conservative measures. A discussion of the risks and benefits of operative intervention versus continued conservative measures was made with the patient. She opted to proceed with surgery. Operative risks to include infection, neurovascular injury, development of blood clots, possible component loosening, possible component failure and need for subsequent procedures was discussed. Informed consent was obtained. Operative Findings: As below Description of Procedure: The patient was brought to the operating room, and after induction of spinal anesthesia the right lower extremity was prepped and draped in a normal fashion. The tourniquet was inflated to 270 mmHg. A longitudinal incision extending 3 finger breaths above the superior pole of the patella extending to the medial aspect the tibial tubercle was then made. The skin and subcutaneous tissues were divided sharply. Electrocautery was used for hemostasis. A medial parapatellar arthrotomy was then performed. The medial soft tissues to include the superficial and deep portions of the medial collateral ligament as well as the medial hamstring tendons were elevated subperiosteally. The proximal medial tibia osteophytes were carefully removed. The patella was everted. The knee was flexed. A portion of the retropatellar fat pad was excised sharply. The anterior cruciate ligament was sacrificed. A starting hole was made in the distal femur 1 cm anterior to the posterior cruciate origin. An intramedullary femoral guide was gently inserted planning on 5 valgus distal cut with 9 mm distal resection. The cutting block was pinned in place. The distal cut was then made. The posterior referencing sizing guide was utilized. 3 of external rotation was built into the system and verified off the trans- epicondylar axis and the posterior condyles. I felt size 6 was most appropriate . The cutting block was pinned in place. The anterior, posterior, and chamfer cuts were then made. The bone fragments were removed. A sulcus cut was then made with the appropriate guide. The trial size 6 femoral component was then placed and was fully seated. There was good anterior to posterior and medial to lateral fit. The distal peg holes were then drilled. The trial component was then removed. Attention was then paid towards preparing the proximal tibia. An extra medullary guide was utilized in line with the tibial shaft and second metatarsal distally. A 7 posterior slope was planned. I planned on 2 mm resection from the medial compartment. The cutting block was pinned in place. The proximal tibial cut was then made. The bone was removed in one fragment. The remnants of the medial and lateral menisci were excised the capsule junction with electrocautery. The tibia sized most appropriately at size 5. The posterior osteophytes off the distal femur were carefully removed with a curved osteotome. The trial tibial and femoral components were placed along with a 9 millimeters articular surface. I was able to obtain full flexion and extension with good stability with varus and valgus stress. After several flexion and extension cycles, the tibial rotation was marked with electrocautery in line with the medial one third of the tibial tubercle. Attention was then paid towards preparing the patella. A patella reamer was utilized taking this down to 14 mm of bone stock. A good flush cut was made. The patella sized most appropriately at 35 millimeters. The peg holes were then drilled. The trial component was placed. The knee was taken through a range of motion. I had good patellofemoral tracking with no hands technique. The trial components were then removed. The tibia was prepared in the appropriate rotation with appropriate drill and keel punch. The flexion and extension gaps were checked and felt to be symmetric. The posterior soft tissues were injected with ropivacaine. The bony surfaces were prepared with pulsatile lavage and dried. The deep tibial component was then cemented in place and was fully seated. Excess cement was removed. The femoral component was cemented in place and was fully seated. Again excess cement was removed. The trial 9 millimeters surface was then inserted in the knee was put in full extension. The patella component was cemented in place. After the cement had sufficiently hardened, the knee was again taken through a range of motion. Again there was good stability in flexion and extension with varus and valgus stress. The trial articular surface was then removed. The final articular surface was placed and was impacted. Care was taken to avoid any soft tissue interposition. Pulsatile lavage was again utilized. The tourniquet was deflated with approximately 65 minutes total tourniquet time. There was minimal drainage therefore a deep drain was not placed. The medial parapatellar arthrotomy was then closed with #2 Ethibond suture. The subcutaneous tissues were reapproximated interrupted 2-0 Vicryl sutures. The skin was reapproximated with 3-0 subarticular strata fix suture. Skin tape and adhesive was applied. A sterile dressing was applied. The patient was then awoken from sedation and transferred to recovery room in good condition. Blood loss was estimated at 50 milliliters. No complications were incurred. Sponge and needle counts were correct at the end the case. Jose ANN assisted during the major components this case to include exposure, bone resection, and implantation.
--- NOTE | 2019-09-08 18:48 | XR ---
PROCEDURE: XR knee limited RT - 2V DATE AND TIME: 09/08/2019 6:41 PM CLINICAL INDICATION: PHH; Evaluation for Postop abnormality and alignment TECHNIQUE: Department protocol COMPARISON: None FINDINGS: AP and crosstable lateral views show postprocedural changes, but no unexpected findings. Th e TKR prosthesis appears anatomic in its position and alignment. IMPRESSION: Postoperative 2 views
[2019-09-08 20:49] VITALS: BMI 40.4
[2019-09-08] MEDS ORDERED: SENNOSIDES-DOCUSATE SODIUM 1 EACH TAB PO SCH (21:00)
[2019-09-08] MEDS: GABAPENTIN 100 MG CAP PO SCH (22:51)
[2019-09-08] MEDS: METOPROLOL TARTRATE 25 MG TAB PO SCH (22:52)
[2019-09-09] MEDS: HYDROcodone/APAP 7.5-325MG 1 EACH TAB PO PRN ×3 (02:22→14:41)
[2019-09-09] MEDS: LACTATED RINGERS 1,000 ML IV SCH (05:25)
[2019-09-09] MEDS ORDERED: LEVOTHYROXINE 112 MCG TAB PO SCH (06:30)
[2019-09-09 07:51] LABS: Basophils % (A) 0 %; Eosinophils % (A) 0 %; HCT 35.6 % (34.0-46.0); HGB 11.8 gm/dL (11.4-16.0); Lymphocytes # (A) 1.4 k/uL (1.0-4.8); Lymphocytes % (A) 9 %; MCH 30.7 pg (25.0-35.0); MCV 92.9 fL (80.0-100.0); Monocytes # (A) 0.5 k/uL (0-1.0); Monocytes % (A) 3 %; Neutrophils # (A) 13.2 k/uL (1.3-7.7); Neutrophils % (A) 86 %; Platelet Count 420 k/uL (150-450); RBC 3.83 m/uL (3.80-5.40); RDW 12.1 % (11.5-15.5); WBC 15.2 k/uL (3.8-10.6)
[2019-09-09 07:56] VITALS: BP 104/68; PULSE 81; RESP 16; TEMP 98.1
[2019-09-09] MEDS: METOPROLOL TARTRATE 25 MG TAB PO SCH (08:45)
[2019-09-09] MEDS: GABAPENTIN 100 MG CAP PO SCH (08:45)
[2019-09-09] MEDS ORDERED: FLUDROCORTISONE 0.1 MG TAB PO SCH (09:00)
[2019-09-09] MEDS ORDERED: RIVAROXABAN 10 MG TAB PO SCH (09:00)
--- NOTE | 2019-09-09 10:03 | P.PN ---
Subjective Progress Note Date: 09/09/19 Principal diagnosis: Status post right total knee arthroplasty Patient evaluated at bedside today, she is resting comfortably. Her pain is well-controlled. She denies any chest pain or shortness of breath. She is ambulating at this time with walker with minimal difficulty. Objective - Vital Signs Vital signs: Vital Signs Temp 98.1 F 09/09/19 07:25 Pulse 81 09/09/19 07:25 Resp 16 09/09/19 07:25 BP 104/68 09/09/19 07:25 Pulse Ox 96 09/09/19 07:25 Intake & Output 09/08/19 09/09/19 09/09/19 18:59 06:59 18:59 Intake Total 1851 120 350 Output Total 50 Balance 1801 120 350 Intake: IV 1851 Intake, IV Titration 120 Amount Lactated Ringers 1,000 ml 70 @ 20 mls/hr IV .Q24H JOSE MIGUEL Rx#:[id number] ceFAZolin 2 gm In Sodium 50 Chloride 0.9% 50 ml @ 100 mls/hr IVPB Q8HR JOSE MIGUEL Rx# :[id number] Oral 350 Output: Estimated Blood Loss 50 Other: # Voids 2 - Exam Right lower extremity: Incision is clean, dry, and intact. The exofin fusion tape is in good condition. There is minimal soft tissue swelling and ecchymosis surrounding the medial and lateral aspects of the incision. Calf is soft, no tenderness with palpation. Plantar flexion, dorsiflexion, EHL, FHL are intact. Sensory exam to light touch throughout the extremity is intact, dorsal pedis pulses 2+. - Labs CBC & Chem 7: 09/09/19 07:11 Labs: Abnormal Lab Results - Last 24 Hours (Table) 09/09/19 Range/Units 07:11 WBC 15.2 H (3.8-10.6) k/uL Neutrophils # 13.2 H (1.3-7.7) k/uL Assessment and Plan Plan: Assessment: Postop day 1 status post right total knee arthroplasty Plan: Pain control, plan for discharge on oral medication GI and DVT prophylaxis, 81 mg twice a day for 1 month Wound care instructions discussed Home physical therapy and nursing after discharge Medical recommendations Discharge home today Time with Patient: Less than 30
--- NOTE | 2019-09-09 10:07 | P.DS ---
Providers Date of admission: 09/08/2019 Expected date of discharge: 09/09/19 Attending physician: Lionel Xie Consults: 09/08/19 17:59 Consult Physician Routine Consulting Provider: Chalo Ayala Reason/Comments: medical management Do you want consulting provider notified?: Yes Primary care physician: Chalo Ayala Hospital Course: Date of admission: 09/08/2019 Date of discharge: 09/09/2019 Admission diagnosis: Status post right total knee arthroplasty Discharge diagnosis: Same Attending physician: Dr. Xie Surgical procedures: Right total knee arthroplasty Brief history: Patient is a 48-year-old female with a history of progressive primary right knee osteoarthritis. At this point patient has failed conservative treatment measures and has opted to proceed with a elective right total knee arthroplasty. Hospital course: Details of patient's surgery can be found in operative report. Patient tolerated the procedure well and was subsequently transported to orthopedic floor. Patient's orthopeidc and medical care was provided daily. Patient had daily laboratory tests performed for evaluation of overall blood counts. Patient had daily physical therapy to include strengthening range of motion as well as education with walker ambulation. Patient had daily CPM usage as part of their physical therapy program. Patient was treated with Xarelto for their postoperative DVT prophylaxis during their inpatient stay. Patient was noted to have a relatively uneventful postoperative course. Patient reported satisfactory pain control with oral pain medications by postoperative day 0. Patient showed satisfactory progress with physical therapy. Patient moved steadily through the program and had no difficulty meeting the goals by postoperative day 1. Given patient's otherwise satisfactory course and having met physical therapy goals, plan is to discharge patient home on postoperative day 1. Discharge condition/disposition: Patient will be discharged home in stable condition. Discharge medications: Instructions are given on resumption of patient's normal daily medications per primary care recommendation, in addition patient will be prescribed [place] 7.5mg/325mg, Colace 100mg, Aspirin 81mg. Discharge instructions: 1. Wound care and infection precautions, keep incision dry and covered while showering, no lotions, creams, moisturizers. No soaking, tubs, pools, hottubs. Do not scrub over the incision. 2. Weight-bear as tolerated with walker / cane until follow-up. 3. Ice and elevate when necessary. Do not exceed 20 minutes per hour with ice pack. 4. Utilize compression sleeve until seen at first follow up appointment. 5. Visiting nursing care. 6. Home physical therapy including home CPM. 7. Pain meds and anticoagulants per prescription. 8. Pain medication has potential to cause constipation. Increase oral fluid and fiber intake. Contact primary care provider if you have not had a bowel movement within 48 hours after discharge 9. No anti-inflammatory medication until discussed at first post operative visit, this including Motrin, Aleve, Mobic, Diclofenac. 10. Follow up in office at 2 weeks postop with Jose Joya PA-C 11. Follow up with your primary care doctor 7-10 days after discharge. 12. Contact [facility] with any questions, . Procedures: Right total knee arthroplasty Patient Condition at Discharge: Good Plan - Discharge Summary Discharge Rx Participant: Yes New Discharge Prescriptions: New Aspirin [Adult Low Dose Aspirin EC] 81 mg PO BID #60 tablet. Docusate [Colace] 100 mg PO DAILY #30 capsule HYDROcodone/APAP 7.5-325MG [[place] 7.5] 1 - 2 each PO Q6HR PRN #56 tab PRN Reason: Pain No Action Metoprolol Tartrate [Lopressor] 25 mg PO BID Levothyroxine Sodium [Synthroid] 112 mcg PO DAILY Fludrocortisone [Florinef] 0.1 mg PO MOWEFR Gabapentin [Neurontin] 100 mg PO BID Discharge Medication List Metoprolol Tartrate [Lopressor] 25 mg PO BID 01/07/18 [History] Levothyroxine Sodium [Synthroid] 112 mcg PO DAILY 08/26/18 [History] Fludrocortisone [Florinef] 0.1 mg PO MOWEFR 11/14/18 [History] Gabapentin [Neurontin] 100 mg PO BID 09/03/19 [History] Aspirin [Adult Low Dose Aspirin EC] 81 mg PO BID #60 tablet. 09/09/19 [Rx] Docusate [Colace] 100 mg PO DAILY #30 capsule 09/09/19 [Rx] HYDROcodone/APAP 7.5-325MG [[place] 7.5] 1 - 2 each PO Q6HR PRN #56 tab 09/09/19 [Rx] Follow up Appointment(s)/Referral(s): Jos Joya PAC [PHYSICIAN PALEOLOGY PROFESSOR] - 09/23/19 2:50 pm Chalo Ayala MD [Primary Care Provider] - 1 Week Activity/Diet/Wound Care/Special Instructions: Orthopedic Discharge Instructions: 1. Wound care and infection precautions, keep incision dry and covered while showering, no lotions, creams, moisturizers. No soaking, pools, hot tubs. Do not scrub over incision. 2. Weight-bear as tolerated with walker / cane until follow-up. 3. Ice and elevate when necessary. Do not exceed 20 minutes per hour with ice pack. 4. Utilize compression sleeve until seen at first follow up appointment. 5. Pain meds and anticoagulants per prescription. 6. Pain medication has potential to cause constipation. Increase oral fluid and fiber intake. Contact primary care provider if you have not had a bowel movement within 48 hours after discharge. 7. No anti-inflammatory medication until discussed at first post operative visit, this including Motrin, Aleve, Mobic, Diclofenac. 8. Follow up in office at 2 weeks postop with Jose Joya PA-C 9. Follow up with your primary care doctor 7-10 days after discharge. 10. Contact [facility] with any questions, . Discharge Disposition: HOME WITH HOME HEALTH SERVICES
--- NOTE | 2019-09-17 13:12 | P.CONS ---
History of Present Illness - Reason for Consult Consult date: 09/09/19 Medical management hypertension, hypothyroidism Requesting physician: Lionel Xie - Chief Complaint Right knee osteoarthritis - History of Present Illness This is a 48-year-old female with history of hypertension, hypothyroidism ,severe right knee osteoarthritis, failed conservative outpatient treatment, status post elective right total knee arthroplasty. Tolerated procedure well. Pain controlled. Ambulating with walker/using CPM, tolerating exertion well. Denies lightheadedness, dizziness or focal deficits. Good diet intake, no nausea vomiting or diarrhea. Passing flatus. Denies chest pain, palpitations or shortness of breath. Afebrile, vital signs stable, maintaining O2 sats in the high 90s on room air. Review of Systems Constitutional: Denied any fatigue denied any fever. Cardio vascular: denied any chest pain, palpitations Gastrointestinal denied any nausea vomiting Pulmonary: Denied any shortness of breath cough Neurologic denied any new focal deficits ROS Statement: Those systems with pertinent positive or pertinent negative responses have been documented in the HPI. ROS Other: All systems not noted in ROS Statement are negative. Past Medical History Past Medical History: Hypertension, Musculoskeletal Disorder, Osteoarthritis (OA), Syncope, Thyroid Disorder Additional Past Medical History / Comment(s): past hx. ulcers, back pain & leg pain, takes florinef for hx. of syncope, takes metoprolol for tachycardia per pt.,. pt states she has umbilical hernia History of Any Multi-Drug Resistant Organisms: None Reported Past Surgical History: Appendectomy, Cholecystectomy, Heart Catheterization, Hysterectomy, Orthopedic Surgery, Tubal Ligation Additional Past Surgical History / Comment(s): arthroscopies tristin. knees,4 on the right, left shoulder repair Past Anesthesia/Blood Transfusion Reactions: No Reported Reaction Past Psychological History: No Psychological Hx Reported Smoking Status: Former smoker Past Alcohol Use History: Occasional Additional Past Alcohol Use History / Comment(s): QUIT SMOKING 12/12/17 Past Drug Use History: None Reported - Past Family History Father Family Medical History: No Reported History Mother Family Medical History: Osteoarthritis (OA) Medications and Allergies Home Medications Medication Instructions Recorded Confirmed Type Metoprolol Tartrate [Lopressor] 25 mg PO BID 01/07/18 09/08/19 History Levothyroxine Sodium [Synthroid] 112 mcg PO DAILY 08/26/18 09/08/19 History Fludrocortisone [Florinef] 0.1 mg PO MOWEFR 11/14/18 09/08/19 History Gabapentin [Neurontin] 100 mg PO BID 09/03/19 09/08/19 History Aspirin [Adult Low Dose Aspirin EC] 81 mg PO BID #60 tablet.dr 09/09/19 Rx Docusate [Colace] 100 mg PO DAILY #30 capsule 09/09/19 Rx HYDROcodone/APAP 7.5-325MG [[place] 1 - 2 each PO Q6HR PRN #56 tab 09/09/19 Rx 7.5] Allergies Allergy/AdvReac Type Severity Reaction Status Date / Time No Known Allergies Allergy Verified 09/08/19 13:53 Physical Exam Vitals: Vital Signs Temp Pulse Pulse Resp BP BP Pulse Ox 09/09/19 07:25 98.1 F 81 16 104/68 96 09/09/19 00:57 98.4 F 79 20 105/64 96 09/08/19 20:20 73 16 86/56 95 09/08/19 20:00 72 16 98/67 96 09/08/19 19:45 74 16 94/65 97 09/08/19 19:35 98.2 F 74 16 98/64 97 09/08/19 19:15 76 16 100/66 98 09/08/19 19:00 79 16 102/59 96 09/08/19 18:45 73 16 105/56 100 09/08/19 18:44 79 14 95/52 99 09/08/19 18:32 97.1 F L 93 18 178/87 98 Intake and Output 09/09/19 09/09/19 09/09/19 06:59 14:59 22:59 Intake Total 50 800 Balance 50 800 Intake: Intake, IV Titration 50 Amount ceFAZolin 2 gm In Sodium 50 Chloride 0.9% 50 ml @ 100 mls/hr IVPB Q8HR [facility] Rx# :[id number] Oral 800 Other: # Voids 2 2 PHYSICAL EXAM: VITAL SIGNS: [As above] GENERAL: Sitting up in bed, no acute distress HEENT: Conjunctivae normal. eyes normal. Oral mucosa moist NECK: No JVD. No thyroid enlargement. No LNs CARDIOVASCULAR: S1, S2 regular..No murmur RESPIRATION: Breath sounds diminished in the bases. No rhonchi or crackles. No bronchial breathing. ABDOMEN: Soft, nontender . No guarding. no masses palpable. No ascites, No hepatosplenomegaly.Bowel sounds heard. LEGS: Right knee dressings clean dry and intact, minimal edema, positive pulses, capillary refill less than 2 seconds PSYCHIATRY: Alert and oriented X3, mood and affect normal. NERVOUS SYSTEM: Cranial N 2-12 grossly normal. Moves all 4 limbs. Diffuse weakness No focal deficits. Strength and sensation grossly intact.. Skin: no lesions, no rash Results CBC & Chem 7: 09/09/19 07:11 Labs: Abnormal Lab Results - Last 24 Hours (Table) 09/09/19 Range/Units 07:11 WBC 15.2 H (3.8-10.6) k/uL Neutrophils # 13.2 H (1.3-7.7) k/uL Assessment and Plan Assessment: -Severe right knee osteoarthritis, failed conservative treatment, status post right total knee arthroplasty -Hypertension -Hypothyroidism -Former nicotine dependence Plan: Continue on current medication regime ,monitoring and symptomatic treatment. Pain management/anticoagulation as per primary. Aggressive pu lmonary toileting with incentive spirometer reinforced. Home medications have been reviewed and resumed accordingly. Discharge planning in progress as per orthopedic surgery. Follow-up with PCP in 1 week. The impression and plan of care has been dictated as directed. : I performed a history and examination of this patient, discussed the same with the dictator. I agree with the dictator's note ,documented as a scribe. Any additional findings or plans will be noted.
== END 2019-09-09 15:23 | disposition home health service (06) ==
LOC: OR 13:24 → 4SSUR 18:15 → OR 09-09 15:23
PROVIDERS: ATTEND Orthopaedic Surgery
DX: M17.11 Unilateral primary osteoarthritis, right knee (principal); I10 Essential (primary) hypertension; E03.9 Hypothyroidism, unspecified; I49.3 Ventricular premature depolarization; E66.9 Obesity, unspecified; G89.29 Other chronic pain; Z90.49 Acquired absence of other specified parts of digestive tract; Z87.11 Personal history of peptic ulcer disease; Z79.52 Long term (current) use of systemic steroids; Z79.82 Long term (current) use of aspirin; Z79.890 Hormone replacement therapy; Z79.899 Other long term (current) drug therapy; Z90.710 Acquired absence of both cervix and uterus; Z87.891 Personal history of nicotine dependence; Z80.9 Family history of malignant neoplasm, unspecified; Z98.890 Other specified postprocedural states; Z68.41 Body mass index [BMI] 40.0-44.9, adult
CPT/HCPCS: 27447; 97162; 85025; 88300; 73560; C1713; C1776; J2250; J0171; J1200; J1100; J0690 ×3; J2405; J2001; J3010; J1885; J1170; J2795; J0330; J2704; J0735

== ENCOUNTER → 2019-10-22 | Outpatient (CLI) | payer OTHER | END | disposition home or self-care (01) | LOC: LABWHC1 16:35 | PROVIDERS: ATTEND Internal Medicine Endocrinology, Diabetes & Metabolism | DX: E03.8 Other specified hypothyroidism (principal) | CPT/HCPCS: 36415; 84443 ==

== ENCOUNTER → 2019-12-08 | Day surgery (SDC) | payer OTHER ==
[2019-12-03 15:51] VITALS: BMI 38.7
--- NOTE | 2019-12-07 08:59 | HP ---
HISTORY AND PHYSICAL CHIEF COMPLAINT: Right knee stiffness. HISTORY OF PRESENT ILLNESS: The patient is a 49-year-old female who underwent right total knee arthroplasty 09/08/2019 without complication. Postoperatively, she received adequate rehabilitation; however, had persistent stiffness. PAST MEDICAL HISTORY: Significant for arthritis, hypertension, and hypothyroidism. PAST SURGICAL HISTORY: Significant for right total knee arthroplasty, left shoulder surgery, laparoscopy, appendectomy, and hysterectomy. CURRENT MEDICATIONS: 1. Aspirin. 2. Gabapentin. 3. Metoprolol. ALLERGIES: She denies drug allergies. FAMILY HISTORY: Significant for cancer. SOCIAL HISTORY: Significant for 1 pack per week tobacco use. REVIEW OF SYSTEMS: Sixteen-point review of systems otherwise reviewed and is noncontributory. PHYSICAL EXAMINATION: On examination, she is approximately 5 feet 4 inches, 237 pounds of endomorphic habitus. HEENT exam is nonfocal. Neck is supple. She has painless passive motion of her right hip. Her right knee incision is well healed. She has a moderate effusion in the right knee. Active motion right knee -8 to 90 degrees of flexion. She has no real joint line tenderness. She is stable to varus and valgus stress. River's is negative. Her distal neurovascular exam appears intact in the right lower extremity. Previous weightbearing AP and lateral views of the right knee obtained in the office show a total knee arthroplasty with components in good position. IMPRESSION: Status post right total knee arthroplasty with arthrofibrosis. RECOMMENDATIONS: I talked to the patient at length regarding her condition and treatment options. She remains quite stiff despite adequate rehabilitation. We will plan to proceed with manipulation under anesthesia. She will start a Medrol Dosepak directly after the procedure, along with continuation of therapy. Risks and benefits were discussed at length in layman's terms. MMODL / IJN: [id number] /
[~2019-12-08] MED LIST changes: -ACETAMINOPHEN TAB 500 MG TAB PO ONE; -DEXAMETHASONE SOD PHOSPHATE 10 MG/ML 1 ML VIAL IV ONE; -HYDROmorphone 0.5 MG/0.5 ML SYRINGE IVP PRN; +KETOROLAC 30 MG/ML 1 ML VIAL IVP ONE; +LACTATED RINGERS 1,000 ML IV SCH; +LIDOCAINE 1% (10MG/ML) FOR IV START INTRADERMA PRN; -LIDOCAINE 1% 20 ML VIAL (10MG/ML) FOR IV START INTRADERMA PRN; -MELOXICAM 7.5 MG TAB PO ONE; -MIDAZOLAM 2 MG/2 ML VIAL IV PRN; +MIDAZOLAM 2 MG/2 ML VIAL ONE; +MORPHINE SULFATE 2 MG/ML SYRINGE IV PRN; -ONDANSETRON 4 MG/2 ML VIAL IVP ONE; +PROPOFOL 10 MG/ML 20 ML VIAL IV ONE; +Pre Op ABX Message 1 EACH MISC MISCELLANE ONE; -SCOPOLAMINE 1.5MG/72HR PATCH TRANSDERM ONE; -TRANEXAMIC ACID 1,000 MG in SODIUM CHLORIDE 0.9% 100 ML IVPB ONE
[2019-12-08 08:59] VITALS: TEMP 97.8
[2019-12-08] MEDS: ONDANSETRON 4 MG/2 ML VIAL IVP PRN ×2 (09:08→11:05)
--- NOTE | 2019-12-08 10:49 | P.OP ---
Date of Procedure: 12/08/19 Preoperative Diagnosis: Right knee arthrofibrosis status post total knee arthroplasty Postoperative Diagnosis: Same Procedure(s) Performed: Manipulation under anesthesia right knee Anesthesia: MAC Surgeon: Lionel Xie Estimated Blood Loss (ml): 0 Pathology: none sent Condition: stable Disposition: PACU Indications for Procedure: The patient's a 49-year-old female who underwent total knee arthroplasty recently who had persistent postoperative stiffness despite adequate rehab ilitation. A discussion of the risks and benefits of manipulation under anesthesia was made with patient. She opted to proceed. Risks to include fracture, tendon rupture, recurrence of stiffness was discussed. Informed consent was obtained. Operative Findings: As below Description of Procedure: The patient was brought to the recovery room, and after induction of IV sedation gentle manipulation was then performed on the left knee. I obtained 125 of flexion after encountering moderate adhesions. I was also able to obtain full extension. The patient tolerated the procedure well. No complications were incurred. She was monitored until fully awake.
[2019-12-08] MEDS: HYDROmorphone 0.5 MG/0.5 ML SYRINGE IVP ONE ×2 (11:05→11:11)
[2019-12-08 11:56] VITALS: BP 115/80; PULSE 66; RESP 18
== END | disposition home or self-care (01) ==
LOC: OR 08:47
PROVIDERS: ATTEND Orthopaedic Surgery
DX: M24.461 Recurrent dislocation, right knee (principal); Z96.651 Presence of right artificial knee joint; M19.90 Unspecified osteoarthritis, unspecified site; I10 Essential (primary) hypertension; E03.9 Hypothyroidism, unspecified; Z98.890 Other specified postprocedural states; Z90.49 Acquired absence of other specified parts of digestive tract; Z90.710 Acquired absence of both cervix and uterus; Z79.82 Long term (current) use of aspirin; Z79.899 Other long term (current) drug therapy; Z87.891 Personal history of nicotine dependence; Z79.890 Hormone replacement therapy
CPT/HCPCS: 27570; J2250; J2405; J1885; J2704; J1170

== ENCOUNTER → 2020-05-02 | Outpatient (CLI) | payer BC, OTHER | END | disposition home or self-care (01) | LOC: LABMAIN 23:47 | PROVIDERS: ATTEND Internal Medicine Endocrinology, Diabetes & Metabolism | DX: E03.8 Other specified hypothyroidism (principal) | CPT/HCPCS: 36415; 84443 ==

== ENCOUNTER → 2020-06-24 | Outpatient (CLI) | payer BC ==
[2020-06-24 20:35] LABS: African American GFR (CKD) 116.3 (60.0-200.0); Albumin 4.3 g/dL (3.80-4.90); Albumin/Globulin Ratio 1.87 (1.60-3.17); Anion Gap 5.2 mmol/L (4.00-12.00); BUN/Creat Ratio 12.86 Ratio (12.00-20.00); Calcium 9.8 mg/dL (8.7-10.3); Carbon Dioxide 28.8 mmol/L (21.6-31.8); Globulin 2.3 g/dL (1.6-3.3); Non-African American GFR(CKD) 100.3 (60.0-200.0); Potassium 4.4 mmol/L (3.5-5.5); Total Bilirubin 0.3 mg/dL (0.3-1.2); Total Protein 6.6 g/dL (6.2-8.2)
== END | disposition home or self-care (01) ==
LOC: LABWHC1 10:36
PROVIDERS: ATTEND Internal Medicine Interventional Cardiology
DX: R60.0 Localized edema (principal)
CPT/HCPCS: 36415; 80053

== ENCOUNTER → 2020-09-20 | Outpatient (CLI) | payer SELFPAY | END | disposition home or self-care (01) | LOC: LABWHC1 09:22 | PROVIDERS: ATTEND Emergency Medicine | DX: Z20.828 Contact with and (suspected) exposure to other viral communicable diseases (principal) | CPT/HCPCS: U0003; C9803 ==

== ENCOUNTER 2021-05-24 11:58 | Emergency (ER) | payer OTHER ==
[2021-05-24 12:02] VITALS: BP 142/89; PULSE 87; RESP 18; TEMP 98
[2021-05-24] MEDS ORDERED: ACETAMINOPHEN TAB 500 MG TAB PO STA (12:28)
[2021-05-24] MEDS ORDERED: IBUPROFEN 600 MG TAB PO STA (12:28)
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
== END 2021-05-24 12:48 | disposition home or self-care (01) ==
LOC: EC 11:58
DX: T22.212A Burn of second degree of left forearm, initial encounter (principal); T22.20XA Burn of second degree of shoulder and upper limb, except wrist and hand, unspecified site, initial encounter; X17.XXXA Contact with hot engines, machinery and tools, initial encounter; Y93.G3 Activity, cooking and baking; I10 Essential (primary) hypertension; E07.9 Disorder of thyroid, unspecified
CPT/HCPCS: 99284

== ENCOUNTER 2021-07-17 16:13 | Emergency (ER) | payer OTHER ==
[2021-07-17 16:21] VITALS: BP 120/72; PULSE 79; RESP 20; TEMP 98.5
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
== END 2021-07-17 17:30 | disposition home or self-care (01) ==
LOC: EC 16:13
DX: L55.1 Sunburn of second degree (principal); I10 Essential (primary) hypertension; K21.9 Gastro-esophageal reflux disease without esophagitis; Z79.82 Long term (current) use of aspirin; Z90.49 Acquired absence of other specified parts of digestive tract
CPT/HCPCS: 99282

== ENCOUNTER 2021-09-08 00:04 | Emergency (ER) | payer OTHER ==
[2021-09-08 00:10] VITALS: BP 158/92; PULSE 71; RESP 18; TEMP 98
[2021-09-08] MEDS ORDERED: KETOROLAC 15 MG/ML 1 ML VIAL IM STA (00:37)
--- NOTE | 2021-09-08 00:56 | XR ---
EXAMINATION TYPE: XR knee complete RT DATE OF EXAM: 09/08/2021 COMPARISON: 09/08/2019 HISTORY: Pain. Fall. TECHNIQUE: 3 views FINDINGS: There is right knee prosthesis. Components appear in anatomic position. I see no fracture l ine. IMPRESSION: No fracture seen. No adverse change compared to old exam.
--- NOTE | 2021-09-08 00:57 | XR ---
EXAMINATION TYPE: XR hand complete RT DATE OF EXAM: 09/08/2021 COMPARISON: NONE HISTORY: Pain. Fall. TECHNIQUE: 3 views FINDINGS: The metacarpals appear intact. There is some spurring at the first carpometacarpal joint. I see no fracture nor dislocation. There is mild spurring at the IP joints of the fingers. Carpal bone s are intact. IMPRESSION: Minor osteoarthritis. No fracture seen.
--- NOTE | 2021-09-08 01:38 | ED ---
Fall HPI - General Chief Complaint: Fall Stated Complaint: Fell on right knee and hand Time Seen by Provider: 09/08/21 00:23 Source: patient Mode of arrival: ambulatory - History of Present Illness Initial Comments: 50-year-old female patient presents to the emergency department today for evaluation after experiencing a fall at home. Patient states she tripped and fell around 9 PM this evening. States she landed on her right hand and right knee. States she does have a knee replacement on the right and was concerned about this. States she merely developed swelling and bruising to the knee. States she is having pain to the lateral aspect of the hand. Denies numbness or tingling. Denies taking anything for pain. States she does take a baby aspirin of other blood thinners per denies hitting her head or losing consciousness. Denies any neck or back pain. - Related Data Home Medications Medication Instructions Recorded Confirmed Metoprolol Tartrate [Lopressor] 25 mg PO BID 01/07/18 05/24/21 Levothyroxine Sodium [Synthroid] 112 mcg PO QAM 08/26/18 05/24/21 Fludrocortisone [Florinef] 0.1 mg PO MOWEFR 11/14/18 05/24/21 Previous Rx's Medication Instructions Recorded Aspirin [Adult Low Dose Aspirin EC] 81 mg PO BID #60 tablet. 09/09/19 SILVER sulfADIAZINE Cream 1 applic TOPICAL BID #30 gram 05/24/21 [Silvadene 1% Cream] Doxycycline Monohydrate [Monodox] 100 mg PO Q12HR #20 cap 07/17/21 Allergies Allergy/AdvReac Type Severity Reaction Status Date / Time No Known Allergies Allergy Verified 09/08/21 00:10 Review of Systems ROS Statement: Those systems with pertinent positive or pertinent negative responses have been documented in the HPI. ROS Other: All systems not noted in ROS Statement are negative. Past Medical History Past Medical History: GERD/Reflux, Hypertension, Syncope, Thyroid Disorder Additional Past Medical History / Comment(s): ABDOMINAL PAIN, stomach ulcers, back pain, umbilical hernia. History of Any Multi-Drug Resistant Organisms: None Reported Past Surgical History: Appendectomy, Heart Catheterization, Hysterectomy, Joint Replacement, Orthopedic Surgery, Tubal Ligation Additional Past Surgical History / Comment(s): Right knee arthroscopy X4, left knee arthroscopy X1, left shoulder repair, right knee replacement. Past Anesthesia/Blood Transfusion Reactions: No Reported Reaction Past Psychological History: No Psychological Hx Reported Smoking Status: Never smoker Past Alcohol Use History: Occasional Past Drug Use History: None Reported - Past Family History Father Family Medical History: No Reported History Mother Family Medical History: Osteoarthritis (OA) General Exam Limitations: no limitations General appearance: alert, in no apparent distress, other (This is a well- developed, well-nourished adult female patient in no acute distress.) Respiratory exam: Present: normal lung sounds bilaterally. Absent: respiratory distress, wheezes, rales, rhonchi, stridor Cardiovascular Exam: Present: regular rate, normal rhythm, normal heart sounds. Absent: systolic murmur, diastolic murmur, rubs, gallop, clicks Extremities exam: Present: full ROM, normal capillary refill, other. Absent: normal inspection, tenderness, pedal edema, joint swelling, calf tenderness Right Hand L/R Back: 1 - Tenderness, swelling, mild ecchymosis. Full range of motion intact. Radial pulses 2+. No anatomical snuffbox tenderness. Neuro motor exam: Present: wrist extension intact, thumb opposition intact, thumb IP flexion intact, thumb adduction intact, fingers 2-5 abduction intact Vascular: Present: normal capillary refill Right Knee exam: Present: tenderness (right anterior), swelling (right anterior), abrasion (right anterior), ecchymosis (right anterior), full knee extension. Absent: pain/laxity with valgus, pain/laxity with varus Gait: observed and limited by pain Back exam: Present: normal inspection, other (Nontender, no step-off, no deformity to firm midline palpation of the thoracic and lumbar vertebrae. Full range of motion without pain or limitation.). Absent: vertebral tenderness Neurological exam: Present: alert, oriented X3, CN II-XII intact Psychiatric exam: Present: normal affect, normal mood Skin exam: Present: warm, dry, intact, normal color. Absent: rash Course Vital Signs 09/08/21 00:07 Temperature 98.0 F Pulse Rate 71 Respiratory 18 Rate Blood Pressure 158/92 O2 Sat by Pulse 97 Oximetry Medical Decision Making - Medical Decision Making 50-year-old female patient presents to the emergency department today for evaluation of right hand pain right knee pain after fall. Physical examination did reveal mild soft tissue swelling, mild ecchymosis to the right lateral hand. Neurovascular status intact. No anatomical snuffbox tenderness. Right knee exam revealed anterior soft tissue swelling, ecchymosis, superficial abrasion. Full range of motion is intact. X-rays of the hand and knee were negative. She was educated regarding ice, rest, elevation. She is given fariba wraps. She is instructed to follow-up with her primary care physician for recheck in 1-2 days. Return parameters were discussed in detail. She verbalizes understanding and agrees with this plan. Case discussed with my attending Dr. Louis. - Radiology Data Radiology results: report reviewed, image reviewed 3 views of the right knee are obtained. Report was reviewed in its entirety. Impression by Dr. Banegas shows no fracture, no adverse change compared to old exam. Right hand x-rays obtained. Report was reviewed in its entirety. Impression by Dr. Banegas shows minor osteoarthritis. No fracture seen. Disposition Clinical Impression: Contusion of right hand, Contusion of right knee Disposition: HOME SELF-CARE Condition: Good Instructions (If sedation given, give patient instructions): Contusion in Adults (ED) Additional Instructions: Apply ice to the painful areas. Take Tylenol Motrin for pain control. Follow- up with primary care physician for recheck in 1-2 days. Return to the emergency department for any new, worsening, or concerning symptoms. Is patient prescribed a controlled substance at d/c from ED?: No Referrals: None,Stated [Primary Care Provider] - 1-2 days Time of Disposition: 01:37
== END 2021-09-08 01:56 | disposition home or self-care (01) ==
LOC: EC 00:04
DX: S60.221A Contusion of right hand, initial encounter (principal); S80.01XA Contusion of right knee, initial encounter; K21.9 Gastro-esophageal reflux disease without esophagitis; I10 Essential (primary) hypertension; E07.9 Disorder of thyroid, unspecified; Z79.82 Long term (current) use of aspirin; Z90.49 Acquired absence of other specified parts of digestive tract; Z90.710 Acquired absence of both cervix and uterus; Z98.51 Tubal ligation status; Z96.651 Presence of right artificial knee joint; W01.0XXA Fall on same level from slipping, tripping and stumbling without subsequent striking against object, initial encounter
CPT/HCPCS: 96372; 99283

== ENCOUNTER → 2022-10-02 | Outpatient (CLI) | payer OTHER ==
--- NOTE | 2022-10-03 02:32 | MR ---
EXAMINATION TYPE: MR ankle RT wo con DATE OF EXAM: 10/02/2022 COMPARISON: None HISTORY: Right ankle pain. Multiplanar multiecho imaging of the right ankle performed with no contrast. The Achilles tendon is intact. Medial and lateral flexor tendons of the ankle appear intact. Extensor tendons are intact. The ankle mortise is anatomic. No fracture. Joint spaces are fairly normal. Ther e is mild ankle joint effusion. There is mild subtalar effusion. No focal bone destruction. The colla teral ligaments appear intact. The plantar fascia appears intact. There is increased fluid around the medial flexor tendons at the ankle. IMPRESSION: There is ankle joint effusion consistent with some nonspecific synovitis. No fracture. No evidence of ligament or tendon tear.
--- NOTE | 2022-10-03 02:35 | MR ---
EXAMINATION TYPE: MR cervical spine wo con DATE OF EXAM: 10/02/2022 COMPARISON: None HISTORY: Neck pain, stiffness, headaches. Multiplanar multiecho imaging of the cervical spine performed with no contrast. The cervical vertebrae show mild straightening. The disc spaces are fairly normal for age. There is m ild anterior spurring and disc bulging from 4 to C7. There are small posterior disc bulging at C4-5 a nd C5-6. No spinal stenosis. There is developmentally adequate spinal canal. Canal measures 9.5 mm at C4-5 which is the narrowest point. No compression fracture. Brainstem is intact. Cervical spinal cord has normal signal pattern. No edema. No evidence of a posterior fossa mass. IMPRESSION: Mild spondylotic changes in the cervical spine as above. No spinal stenosis. Mild posterior disc bulg ing at C4-5 and C5-6.
== END | disposition home or self-care (01) ==
LOC: RADMRIMAIN 20:00
PROVIDERS: ATTEND Orthopaedic Surgery
DX: M47.812 Spondylosis without myelopathy or radiculopathy, cervical region (principal); M50.221 Other cervical disc displacement at C4-C5 level; M25.571 Pain in right ankle and joints of right foot; M25.471 Effusion, right ankle
CPT/HCPCS: 72141

== ENCOUNTER → 2022-10-02 | Outpatient (CLI) | payer OTHER | END | disposition home or self-care (01) | LOC: RADMRIMAIN 20:00 | PROVIDERS: ATTEND Orthopaedic Surgery | DX: Z53.9 Procedure and treatment not carried out, unspecified reason (principal) ==

== ENCOUNTER 2023-01-31 11:53 | Emergency (ER) | payer OTHER ==
[2023-01-31] MEDS ORDERED: KETOROLAC 15 MG/ML 1 ML VIAL IM STA (13:13)
[2023-01-31] MEDS ORDERED: DIPH,PERTUS(ACELL)TETVAC-LF 0.5 ML VIAL IM ONE (13:13)
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
--- NOTE | 2023-01-31 13:38 | XR ---
EXAMINATION TYPE: XR hand complete LT DATE OF EXAM: 01/31/2023 CLINICAL HISTORY: Pain. TECHNIQUE: Frontal, lateral and oblique images of the left hand are obtained. COMPARISON: None. FINDINGS: There is no acute fracture/dislocation evident in the left hand. Incomplete extension of t he phalanges makes evaluation slightly suboptimal. Of the [id number] narrowing and spurring of the PIP and DIP joints of the phalanges. The overlying soft tissue appears unremarkable. IMPRESSION: As above.
[2023-01-31 14:05] VITALS: BP 118/80; PULSE 78; RESP 18; TEMP 98.6
== END 2023-01-31 14:03 | disposition home or self-care (01) ==
LOC: EC 11:53
DX: S61.213A Laceration without foreign body of left middle finger without damage to nail, initial encounter (principal); K21.9 Gastro-esophageal reflux disease without esophagitis; I10 Essential (primary) hypertension; Z79.899 Other long term (current) drug therapy; Z23 Encounter for immunization; W26.0XXA Contact with knife, initial encounter; Y93.G1 Activity, food preparation and clean up; Y92.009 Unspecified place in unspecified non-institutional (private) residence as the place of occurrence of the external cause
CPT/HCPCS: 90471; 90715; 99283

== ENCOUNTER 2024-03-23 19:40 | Emergency (ER) | payer OTHER ==
--- NOTE | 2024-03-23 19:56 | ED ---
General Adult HPI - General Source: patient, RN notes reviewed Mode of arrival: ambulatory Limitations: no limitations <Magui Triplett - Last Filed: 03/23/24 19:54> <Daria Aguilar - Last Filed: 03/23/24 23:40> - General Stated complaint: right shoulder and neck pain Time Seen by Provider: 03/23/24 19:54 - History of Present Illness Initial comments: Quick note: 53-year-old female presented to the ER with a chief complaint of right shoulder and neck pain. 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 She states is extremely painful to move. Denies any paresthesias. (Magui Triplett) 53-year-old female presents to the emergency department for evaluation of right shoulder pain posteriorly and right sided neck pain. She states that yesterday she was moving bags of dirt while doing landscaping. She notes that during the night she started to have some pain in the right side of her neck and her right scapula. She states that it causes a sharp pain when she moves in certain directions. Reports full range of motion to the arm at the shoulder. She reports taking Tylenol without relief. (Daria Aguilar) - Related Data Home Medications Medication Instructions Recorded Confirmed Metoprolol Tartrate [Lopressor] 25 mg PO QAM 01/07/18 01/31/23 Fludrocortisone [Florinef] 0.1 mg PO MOWEFR 11/14/18 01/31/23 Pregabalin 150 mg PO DAILY PRN 01/07/23 01/31/23 Previous Rx's Medication Instructions Recorded Aspirin [Adult Low Dose Aspirin EC] 81 mg PO BID #60 tablet. 09/09/19 Cephalexin [Keflex] 500 mg PO Q6HR #40 cap 01/31/23 Cyclobenzaprine [Flexeril] 10 mg PO TID PRN #15 tab 03/23/24 Ibuprofen [Motrin] 800 mg PO Q8HR #15 tab 03/23/24 Allergies Allergy/AdvReac Type Severity Reaction Status Date / Time No Known Allergies Allergy Verified 03/23/24 20:17 Review of Systems ROS Other: All systems not noted in ROS Statement are negative. <Magui Triplett - Last Filed: 03/23/24 19:54> ROS Other: All systems not noted in ROS Statement are negative. <Daria Aguilar - Last Filed: 03/23/24 23:40> ROS Statement: Those systems with pertinent positive or pertinent negative responses have been documented in the HPI. Past Medical History Past Medical History: GERD/Reflux, Hypertension, Syncope, Thyroid Disorder Additional Past Medical History / Comment(s): ABDOMINAL PAIN, stomach ulcers, back pain, umbilical hernia. History of Any Multi-Drug Resistant Organisms: None Reported Past Surgical History: Appendectomy, Heart Catheterization, Hysterectomy, Joint Replacement, Orthopedic Surgery, Tubal Ligation Additional Past Surgical History / Comment(s): Right knee arthroscopy X4, left knee arthroscopy X1, left shoulder repair, right knee replacement. Past Anesthesia/Blood Transfusion Reactions: No Reported Reaction Past Drug Use History: None Reported - Past Family History Father Family Medical History: No Reported History Mother Family Medical History: Osteoarthritis (OA) <Magui Triplett - Last Filed: 03/23/24 19:54> General Exam <Magui Triplett - Last Filed: 03/23/24 19:54> Limitations: no limitations General appearance: alert, in no apparent distress Head exam: Present: atraumatic, normocephalic, normal inspection Eye exam: Present: normal appearance, PERRL, EOMI. Absent: scleral icterus, conjunctival injection, periorbital swelling ENT exam: Present: normal exam, mucous membranes moist Neck exam: Present: normal inspection, tenderness (right sided trapezius muscle ttp). Absent: meningismus, full ROM, lymphadenopathy Respiratory exam: Present: normal lung sounds bilaterally. Absent: respiratory distress, wheezes, rales, rhonchi, stridor Cardiovascular Exam: Present: regular rate, normal rhythm, normal heart sounds. Absent: systolic murmur, diastolic murmur, rubs, gallop, clicks Extremities exam: Present: full ROM, tenderness (TTP over right scapula), normal capillary refill. Absent: pedal edema, joint swelling, calf tenderness Neurological exam: Present: alert, oriented X3 Psychiatric exam: Present: normal affect, normal mood Skin exam: Present: warm, dry, intact, normal color. Absent: rash <Daria Aguilar - Last Filed: 03/23/24 23:40> - General Exam Comments Initial Comments: Visual Physical Exam Vital signs reviewed General: Well-appearing, nontoxic, no acute distress. Head: Normocephalic, atraumatic Eyes: PERRLA, EOMI ENT: Airway patent Chest: Nonlabored breathing Skin: No visual rash, normal skin tone Neuro: Alert and oriented 3 Musculoskeletal: Stiff right neck with limited range of motion (Magui Triplett) Course Vital Signs 03/23/24 20:15 Temperature 98 F Pulse Rate 89 Respiratory 18 Rate Blood Pressure 116/76 O2 Sat by Pulse 96 Oximetry Medical Decision Making <Magui Triplett - Last Filed: 03/23/24 19:54> <Daria Aguilar - Last Filed: 03/23/24 23:40> - Medical Decision Making I performed the quick note portion of this chart. Electronically signed by Magui Triplett PA-C (Magui Triplett) Was pt. sent in by a medical professional or institution (MARISSA Mccartney, RAILCAR BRAKE OPERATOR, urgent care, hospital, or shelter...) When possible be specific @ -No Did you speak to anyone other than the patient for history (EMS, parent, family, police, friend...)? What history was obtained from this source @ -No Did you review nursing and triage notes (agree or disagree)? Why? @ -I reviewed and agree with nursing and triage notes Were old charts reviewed (outside hosp., previous admission, EMS record, old EKG, old radiological studies, urgent care reports/EKG's, shelter records)? Report findings @ -No old charts were reviewed Differential Diagnosis (chest pain, altered mental status, abdominal pain women, abdominal pain men, vaginal bleeding, weakness, fever, dyspnea, syncope, headache, dizziness, GI bleed, back pain, seizure, CVA, palpatations, mental health, musculoskeletal)? @ -Differential Musculoskeletal Muscular strain, contusion, ligament sprain, fracture, arthritis, septic arthritis, bursitis, cellulitis, muscle spasm, nerve compression, DVT, arterial occlusion, herpes zoster, electrolyte abnormality, tumor.... This is not meant to be in all inclusive list EKG interpreted by me (3pts min.). @ -None X-rays interpreted by me (1pt min.). @ -X-ray of the right shoulder shows no evidence of acute fracture X-ray of the cervical spine shows no evidence of acute fracture, mild degenerative disc changes CT interpreted by me (1pt min.). @ -None done U/S interpreted by me (1pt. min.). @ -None done What testing was considered but not performed or refused? (CT, X-rays, U/S, labs)? Why? @ -None What meds were considered but not given or refused? Why? @ -None Did you discuss the management of the patient with other professionals (professionals i.e. , PA, RAILCAR BRAKE OPERATOR, lab, RT, psych nurse, social services analyst, cow washer, teacher, community reinvestment act officer, corrections caseworker)? Give summary @ -No Was smoking cessation discussed for >3mins.? @ -No Was critical care preformed (if so, how long)? @ -No Were there social determinants of health that impacted care today? How? (Homelessness, low income, unemployed, alcoholism, drug addiction, transportation, low edu. Level, literacy, decrease access to med. care, care home, rehab)? @ -No Was there de-escalation of care discussed even if they declined (Discuss DNR or withdrawal of care, Hospice)? DNR status @ -No What co-morbidities impacted this encounter? (DM, HTN, Smoking, COPD, CAD, Cancer, CVA, ARF, Chemo, Hep., AIDS, mental health diagnosis, sleep apnea, morbid obesity)? @ -None Was patient admitted / discharged? Hospital course, mention meds given and route, prescriptions, significant lab abnormalities, going to OR and other pertinent info. @ -Discharge. Patient presented to the emergency department for evaluation of right shoulder and neck discomfort following heavy lifting yesterday. Patient reports pain started last night. She took Tylenol without relief. X-rays obtained which show no evidence of acute fracture or dislocation. Patient given a dose of Toradol in the emergency department. Prescription sent to patient's pharmacy for Flexeril. Advised patient to utilize Tylenol and Motrin on top of this. Patient understanding agreeable plan. Patient stable at time of discharge. Case discussed with Dr. Judge Undiagnosed new problem with uncertain prognosis? @ -No Drug Therapy requiring intensive monitoring for toxicity (Heparin, Nitro, In sulin, Cardizem)? @ -No Were any procedures done? @ -No Diagnosis/symptom? @ -Muscle strain Acute, or Chronic, or Acute on Chronic? @ -acute Uncomplicated (without systemic symptoms) or Complicated (systemic symptoms)? @ -uncomplicated Side effects of treatment? @ -No Exacerbation, Progression, or Severe Exacerbation? @ -No Poses a threat to life or bodily function? How? (Chest pain, [place], [place], pneumonia, PE, COPD, DKA, ARF, appy, cholecystitis, CVA, Diverticulitis, Homicidal, Suicidal, threat to staff... and all critical care pts) @ -No (Daria Aguilar) Disposition <Magui Triplett - Last Filed: 03/23/24 19:54> Is patient prescribed a controlled substance at d/c from ED?: No <Daria Aguilar - Last Filed: 03/23/24 23:40> Clinical Impression: Strain of shoulder Disposition: HOME SELF-CARE Condition: Stable Instructions (If sedation given, give patient instructions): Rotator Cuff Injury Exercises (DC) Additional Instructions: Do not drive or operate heavy machinery while taking muscle relaxers. Please follow up with your primary care provider. Return to the emergency department for new or worsening symptoms. Prescriptions: Cyclobenzaprine [Flexeril] 10 mg PO TID PRN #15 tab PRN Reason: Muscle Spasm Ibuprofen [Motrin] 800 mg PO Q8HR #15 tab Referrals: Lauren Saenz [Primary Care Provider] - 1-2 days
[2024-03-23 20:37] VITALS: BP 116/76; PULSE 89; RESP 18; TEMP 98
--- NOTE | 2024-03-23 21:26 | XR ---
EXAMINATION TYPE: XR shoulder complete RT DATE OF EXAM: 03/23/2024 9:07 PM CLINICAL INDICATION:Female, 53 years old with history of pain; [facility] COMPARISON: None TECHNIQUE: XR shoulder complete RT; examined in AP, internally rotated and scapular Y projections. FINDINGS: No evidence of acute osseous pathology, joint dislocation, or soft tissue swelling. The remaining po rtions of the visualized chest are unremarkable. IMPRESSION: No acute osseous pathology.
--- NOTE | 2024-03-23 21:27 | XR ---
EXAMINATION TYPE: XR cervical spine comp DATE OF EXAM: 03/23/2024 9:07 PM CLINICAL INDICATION:Female, 53 years old with history of pain; COMPARISON: 01/31/2012 TECHNIQUE: The cervical spine was imaged in frontal, lateral, odontoid and bilateral oblique. FINDINGS: The osseous structures show normal alignment without evidence of an acute fracture. There are osteoph ytes noted throughout the cervical spine on the anterior and lateral aspects of the vertebral bodies. The intervertebral disk spaces are narrowed at multiple levels. Pedicles are intact. Soft tissues a re within normal limits. The odontoid appears intact. IMPRESSION: 1. No fracture or dislocation. 2. Mild to moderate degenerative disc disease changes of the cervical spine.
[2024-03-23] MEDS: ACET/COD 300 MG/30 MG STARTER PACK 6 TAB BTL PO STA (22:07)
[2024-03-23] MEDS: CYCLOBENZAPRINE 10MG STARTER 3 TAB BTL PO STA (22:08)
[2024-03-23] MEDS: KETOROLAC 15 MG/ML 1 ML VIAL IM STA (22:08)
== END 2024-03-23 22:13 | disposition home or self-care (01) ==
LOC: EC 19:40
DX: S46.911A Strain of unspecified muscle, fascia and tendon at shoulder and upper arm level, right arm, initial encounter (principal); X50.0XXA Overexertion from strenuous movement or load, initial encounter
CPT/HCPCS: 72050; 73030; 99283; 96372; J1885